=== PATIENT | female | born 1940 | race Caucasian/White ===

== ENCOUNTER → 2016-07-09 | Outpatient (CLI) | payer OTHER, MEDICARE | END | disposition home or self-care (01) | LOC: C.MAMM 10:21 | PROVIDERS: ATTEND Family Medicine | DX: M85.80 Other specified disorders of bone density and structure, unspecified site (principal); Z82.62 Family history of osteoporosis; E83.51 Hypocalcemia ==

== ENCOUNTER → 2016-07-15 | Outpatient (CLI) | payer OTHER, MEDICARE ==
--- NOTE | 2016-07-17 14:26 | MAMMOGRAPHY REPORT ---
BILATERAL DIGITAL SCREENING MAMMOGRAM WITH CAD: 07/15/2016 CLINICAL HISTORY: Routine screening. Patient has no complaints. TECHNIQUE: Bilateral CC and MLO views were obtained. Current study was also evaluated with a Compu ter Aided Detection (CAD) system. COMPARISON: Comparison is made to exams dated: 07/10/2015 mammogram, 04/23/2013 mammogram, 07/07/2014 mammogram - [facility], 05/04/2012 ultrasound, 05/02/2011 mammogram, and 04/02/2010 m ammogram. BREAST COMPOSITION: The tissue of both breasts is heterogeneously dense, which may obscure small ma sses. FINDINGS: There is a 7.4 mm nodular asymmetry in the superior posterior left breast, only seen on t he MLO view, for which additional spot compression tomosynthesis views and possibly ultrasound are r ecommended. There are scattered benign rim calcifications bilaterally. No other suspicious mass, architectural d istortion or cluster of microcalcifications is seen. IMPRESSION: ACR BI-RADS CATEGORY 0: INCOMPLETE EVALUATION: NEED ADDITIONAL IMAGING EVALUATION The 7.4 mm nodular asymmetry in the superior left breast needs additional evaluation. The patient will be called to schedule an appointment. Approximately 10% of breast cancers are not detected with mammography. A negative mammographic repor t should not delay biopsy if a clinically suggestive mass is present. Angelica Chamberlain M.D. ay/:07/16/2016 16:13:38 Internet Retailer: Aashish WEBB(Sourav)(Chris), [facility] letter sent: Addl Imaging 0 BI-RADS Code: ACR BI-RADS Category 0: Incomplete Evaluation: Need Additional Imaging Evaluation
== END | disposition home or self-care (01) ==
LOC: C.MAMM 09:07
PROVIDERS: ATTEND Family Medicine
DX: Z12.31 Encounter for screening mammogram for malignant neoplasm of breast (principal); R92.8 Other abnormal and inconclusive findings on diagnostic imaging of breast

== ENCOUNTER → 2016-07-29 | Outpatient (CLI) | payer OTHER, MEDICARE ==
--- NOTE | 2016-07-29 14:37 | MAMMOGRAPHY REPORT ---
UNILATERAL LEFT DIGITAL DIAGNOSTIC MAMMOGRAM TOMOSYNTHESIS AND TARGETED LEFT ULTRASOUND: 07/29/2016 CLINICAL HISTORY: 76-year-old woman called back from screening mammography for a 7.4 mm nodular asym metry in the superior, middle to posterior left breast, only seen on the MLO view. Family history o f breast cancer = mother. TECHNIQUE: Spot compression left CC and MLO to the digital and tomosynthesis images were obtained. COMPARISON: Comparison is made to exams dated: 07/15/2016 mammogram, 07/07/2014 mammogram, 04/30/2013 [facility], 05/02/2011 mammogram, 04/02/2010 mammogram, and 03/27/2008 [facility] mogram. BREAST COMPOSITION: The tissue of the left breast is heterogeneously dense, which may obscure small masses. FINDINGS: On the spot compression MLO view of the left breast including tomosynthesis images, the 7 mm nodular asymmetry in the superior posterior breast is less conspicuous. There are scattered dewayne gn-appearing calcifications and round microcalcifications. No focal areas of architectural distorti on. No corresponding abnormality is seen on the spot compression CC views including tomosynthesis i mages. Targeted ultrasound was performed throughout the superior left breast. In the 10:00 axis, 2 cm from the nipple, there is an ill-defined taller than wide hypoechoic solid versus cystic mass with indis tinct borders. It measures approximately 3.1 x 3.3 x 2.3 mm. Although this could represent a compl icated cyst or duct ectasia, a solid mass cannot be completely excluded. Definitive characterizatio n with tissue sampling is recommended. This is not thought to correlate with the original asymmetry seen on screening mammography dated 07/15/2016. Overall, no other discrete solid or cystic mass is identified. IMPRESSION: ACR BI-RADS CATEGORY 4B: INTERMEDIATE SUSPICION FOR MALIGNANCY, TARGETED ULTRASOUND ACR BI-RADS CATEGORY 4B: INTERMEDIATE SUSPICION FOR MALIGNANCY 1. Ultrasound guided core biopsy is recommended for an incidentally seen indistinct hypoechoic 3 mm mass in the 10:00 left breast, 2 cm from the nipple. 2. Correlation with post procedure mammograms is recommended, but the sonographic mass in the 10:00 breast is not thought to correlate with the 7 mm asymmetry seen on the original screening mammogram . Therefore, pending pathology results, would recommend follow-up diagnostic mammography in 6 month s to ensure stability, as asymmetry most likely represented normal overlapping tissue. These results and recommendations were discussed with the patient at the time of the exam. She tent atively scheduled the left breast biopsy prior to leaving our department. Approximately 10% of breast cancers are not detected with mammography. A negative mammographic repor t should not delay biopsy if a clinically suggestive mass is present. Angelica Chamberlain M.D. ay/:07/29/2016 12:36:34 Scruff Worker: Aashish Milligan RT(R)(M), [facility] letter sent: Abnormal 4/5 BI-RADS Code: ACR BI-RADS Category 4B: Intermediate Suspicion For Malignancy Ultrasound BI-RADS: AC R BI-RADS Category 4B: Intermediate Suspicion For Malignancy
== END | disposition home or self-care (01) ==
LOC: C.MAMM 09:26
PROVIDERS: ATTEND Family Medicine
DX: R92.8 Other abnormal and inconclusive findings on diagnostic imaging of breast (principal); N63 Unspecified lump in breast

== ENCOUNTER → 2016-08-26 | Outpatient (CLI) | payer OTHER, MEDICARE ==
--- NOTE | 2016-08-26 12:01 | Discharge Instructions ---
Discharge Instructions Procedure Procedure Date: Aug 26, 2016. Reason for visit: Left Mass. Discharge Discharge Date: Aug 26, 2016. Discharge Diagnosis: post left breast ultrasound guided core biopsy Instructions Activity Recommendations: Additional Limitations (see below) Return to School/Work: no limitations Recommended Home Diet: No Limitations Provider Instructions: ACTIVITY RECOMMENDATIONS: * No lifting, pushing, pulling or exercising the affected side for three days. RETURN TO SCHOOL/WORK: * You may return to work/school after the procedure, but do not perform any strenuous activities for 24 to 48 hours. MEDICATIONS: * Tylenol (two 325 mg) every four to six hours if needed for mild pain (if not allergic to Tylenol). DIET: * Resume previous diet. SPECIAL CARE INSTRUCTIONS: * Keep biopsy site dry for 24 hours. May shower after 24 hours, but do not soak (bathe) incision. * May remove Tegaderm (plastic patch) tomorrow AFTER showering. * Leave the steri-strips on for one week. Allow the steri-strips to fall off by themselves. If not off after one week, you may remove them. You may place a Bandaid crosswise over the strips, if desired. * Apply ice 10 minutes on and 10 minutes off as needed. * Wear a bra at bedtime to sleep more comfortably for 2-3 days. * Your referring physician should have the results after approximately 5 to 7 business days. * Call for unusual bleeding, fever, drainage, etc or if you have any questions call [phone] during normal business hours or after hours call Dr Chamberlain, . FOLLOW UP VISIT: Follow-up with Referring Physician as scheduled. Kristina Gallegos Recommendations: Call your doctor if: * Temperature above 101 degrees * Pain not relieved by pain medicine ordered * There is increased drainage or redness from any incision * You have any unanswered questions or concerns. Your Doctors Instructions noted above were prepared by provider Angelica Chamberlain. Patient Signature Section: Patient Instructions Signature Page Ирина Piña Patient (or Guardian) Signature/Date: I have read and understand the instructions given to me by my caregivers. Caregiver/RN/Doctor Signature/Date: The above-named patient and/or guardian has received patient instructions on this date. + Original Patient Signature Page (only) stays with chart. Please make copy for patient.
--- NOTE | 2016-08-26 14:38 | MAMMOGRAPHY REPORT ---
UNILATERAL LEFT DIGITAL DIAGNOSTIC MAMMOGRAM: 08/26/2016 CLINICAL HISTORY: Indeterminate solid versus cystic hypoechoic 3 mm mass in the 10:00 left breast. Patient presented for ultrasound-guided core needle biopsy. Please refer to the report from left breast ultrasound guided core biopsy performed at the same time for full detail. IMPRESSION: POST PROCEDURE IMAGING FOR MARKER PLACEMENT Please refer to the report from left breast ultrasound guided core biopsy performed at the same time for full detail. Approximately 10% of breast cancers are not detected with mammography. A negative mammographic repor t should not delay biopsy if a clinically suggestive mass is present. Angelica Chamberlain M.D. ay/:08/26/2016 12:07:43 Field Sales Engineer: Keri WEBB(R)(M), [facility] BI-RADS Code: Post Procedure Imaging For Marker Placement
--- NOTE | 2016-08-26 14:38 | MAMMOGRAPHY REPORT ---
ULTRASOUND GUIDED BIOPSY LEFT BREAST: 08/26/2016 CLINICAL HISTORY: Indeterminate solid versus cystic 3 mm mass in the 10:00 left breast. Patient pre sents for ultrasound-guided core biopsy. COMPARISON: Comparison is made to exams dated: 07/29/2016 ultrasound, 07/29/2016 mammogram, 07/15/2016 mammogram, 07/10/2015 mammogram, 07/07/2014 mammogram, and 04/30/2013 ultrasound - [facility]. PATIENT CONSENT: The procedure, risks and benefits were discussed with the patient and informed writ ten consent was obtained. Specific risks to this procedure include: bleeding, infection, puncture of adjacent structure, metal allergy, nontargeted biopsy, sampling error and medication reaction. PROCEDURE DESCRIPTION: A time out was performed and the left breast was agreed as the site of biopsy . The skin was prepped and draped in the usual sterile fashion. The patellar than wide, hypoechoic s olid versus cystic mass in the 10:00 left breast was chosen as the target for biopsy. Subcutaneous a nd intraparenchymal 1% buffered lidocaine was administered as local anesthesia. A skin incision was made. Through the incision, 4 samples were taken with a 14 gauge Achieve biopsy device. A metallic marker was placed at the biopsy site. Hemostasis was achieved after manual compression. The patient tolerated the procedure well and there was no immediate complication. The samples were sent to the pathology department in an appropriately labeled container. Postprocedure left CC and ML views were obtained. There is a new ribbon-shaped metallic biopsy olga lidia er and no significant hematoma in the 10:00 middle one third of the left breast, at the site of the biopsied hypoechoic mass seen on ultrasound. Based on the MLO view, the metallic biopsy marker does not definitely align with the original asymmetry seen on the 07/15/2016 screening mammogram and the refore pending benign pathology results, a short interval follow-up diagnostic left mammogram and po ssible repeat ultrasound is recommended to ensure stability in 6 months. IMPRESSION: ULTRASOUND GUIDED BIOPSY Status post ultrasound guided core biopsy of an indeterminate 3 mm hypoechoic mass in the 10:00 left breast, with biopsy marker placed at the site. Pending benign pathology results, a short interval follow-up diagnostic left mammogram is recommende d in 6 months to ensure stability of a partially effacing asymmetry more superior and posterior with in the left breast. Angelica Chamberlain M.D. ay/:08/26/2016 12:12:08 Spanish Lecturer: Keri ABARCA)(Chris), [facility]
== END | disposition home or self-care (01) ==
LOC: C.MAMM 10:58
PROVIDERS: ATTEND Family Medicine
DX: N63 Unspecified lump in breast (principal)

== ENCOUNTER → 2017-04-10 | Outpatient (CLI) | payer OTHER, MEDICARE | END | disposition home or self-care (01) | LOC: C.LAB1850 15:57 | PROVIDERS: ATTEND Internal Medicine Pulmonary Disease | DX: J32.9 Chronic sinusitis, unspecified (principal) ==

== ENCOUNTER → 2017-08-05 | Outpatient (CLI) | payer OTHER, MEDICARE ==
--- NOTE | 2017-08-06 14:03 | MAMMOGRAPHY REPORT ---
BILATERAL DIGITAL SCREENING MAMMOGRAM TOMOSYNTHESIS WITH CAD: 08/05/2017 CLINICAL HISTORY: Routine screening. Patient has no complaints. TECHNIQUE: Breast tomosynthesis in addition to standard 2D mammography was performed. Current study was also evaluated with a Computer Aided Detection (CAD) system. COMPARISON: Comparison is made to exams dated: 08/26/2016 mammogram, 08/26/2016 ultrasound biopsy, 07/02 ultrasound, 07/29/2016 mammogram, 07/15/2016 mammogram, and 07/10/2015 mammogram - [facility]. BREAST COMPOSITION: The tissue of both breasts is heterogeneously dense, which may obscure small mas ses. FINDINGS: There is a stable ribbon-shaped biopsy marker clip in the 9:00 middle one third of the left breast. A previously observed nodular asymmetry in the superior middle to posterior left breast on the MLO view is no longer seen, confirming benignity. There are scattered benign rim calcifications and a stable grouping of coarse heterogeneous calcifications in the right upper outer quadrant. No n ew suspicious mass, architectural distortion or cluster of microcalcifications is seen. IMPRESSION: ACR BI-RADS CATEGORY 1: NEGATIVE There is no mammographic evidence of malignancy. A 1 year screening mammogram is recommended. The pa tient will receive written notification of the results. Approximately 10% of breast cancers are not detected with mammography. A negative mammographic report should not delay biopsy if a clinically suggestive mass is present. Angelica Chamberlain M.D. ay/:08/05/2017 18:22:11 Registrar Nurses' Registry: Miranda WEBBR, M, [facility] letter sent: Normal 1/2 BI-RADS Code: ACR BI-RADS Category 1: Negative
== END | disposition home or self-care (01) ==
LOC: C.MAMM 14:01
PROVIDERS: ATTEND Family Medicine
DX: Z12.31 Encounter for screening mammogram for malignant neoplasm of breast (principal)

== ENCOUNTER 2021-08-22 17:25 | Inpatient (IN) ==
--- NOTE | 2021-08-22 18:47 | Emergency Department Note ---
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 Patient states predominately today she is now too weak to stand up on her own and has been sleeping more frequently this afternoon. Daughter present at bedside states the last several days the patient has seemed generally more weak and fatigued now that she thinks about it. Patient has been a bit more tremulous. She had a gentle fall to the ground tumbling forward 2 days ago but denies any significant injury from this. Patient reports a little bit of leg swelling but denies any significant pain at this time or headache. Patient states she has a bit of chronic cough but denies any nausea or diarrhea or urinary symptoms. No fevers reported. Patient states if anything she has been eating too much. Did recently receive an injection of Keytruda. Noted upon arrival to be hypoxic in the patient states she has no known history of needing oxygen in the past. Daughter discussed with oncology recommend she come here for further evaluation. Known history of metastasis of lung cancer to the brain and has been on steroids tapering down to 8 mg daily at this time. Patient denies new numbness or speech changes at this time. She states her arms feel fairly unchanged at this point and not significantly more weak. REVIEW OF SYSTEMS: A total of 10 review of systems was obtained and negative except as stated above in the HPI. PAST MEDICAL HISTORY: As noted above MEDICATIONS: Reviewed home medications, currently tapering steroid, no longer on anticoagulation SOCIAL HISTORY: Lives at home with daughters for assistance PHYSICAL EXAM: GENERAL: alert and oriented in no acute distress on stretcher Head: normocephalic and atraumatic EYES: No injection, discharge or icterus. PERRL NECK: Trachea midline. Supple. ENT: Mucous membranes pink and moist. LUNGS: Airway patent. No retractions. Breath sounds clear HEART: Regular rate and rhythm. No chest wall tenderness ABDOMEN: Soft and non-tender, without guarding or rebound. SKIN: Acyanotic, warm, dry, without rashes EXTREMITIES: 1+ bilateral lower extremity edema without significant tenderness. No significant tenderness or deformity noted of the upper extremities. NEUROLOGICAL: No focal deficits. No aphasia. No facial droop or slurred speech. Normal strength and tone in the extremities. Sensation to gross touch normal. EK bpm sinus rhythm with Supraventricular premature complexes no ST segment elevation noted. Nonspecific lateral T wave changes. QTc 399. CONTINUOUS CARDIAC MONITORING: was ordered and showed a heart rate of 90s-100s bpm in normal sinus rhythm to sinus tachycardia GCS 15. Patient's laboratory studies and imaging reviewed. Differential includes Infection, dehydration, metabolic abnormality, hypo/hyperglycemia, electrolyte disturbance, anemia, hypoxia, cardiac sources, intracerebral event, toxicologic, neurologic, as well as other pathologies. IMPRESSION/MEDICAL DECISION MAKING: Patient with mild fall 2 days ago but no reported significant head injury not anticoagulation. Primary complaint is been increasing weakness last several days particular today now unable to stand on her own. Is able to transfer with assistance however. No significant focal speech changes or numbness reported. Patient with known significant lung cancer. Incidental note of hypoxia today unsure if this may be contributing. Some shakiness today but not true fever or chills. Denies significant pain at this time. Broad differential was entertained. CT the head as well as CT of the lungs to exclude PE or other pulmonary pathology will be completed. MRI of the brain to further evaluate her known lung metastases may be contributing will be completed. Patient is on steroids already for the lung metastasis. Blood work here without significant anemia or leukocytosis. Mild hyponatremia noted. Stable renal function. Slight ALT elevation at 61 (similar to recent previous) but no bilirubin or AST elevation. Negative Covid test. Troponin detectable but not abnormal. Procalcitonin 0.4. TSH 0.4. CT of the head without acute bleed noted. CT of the chest with left upper lobe segmental and subsegmental PEs noted. Small decrease in size of mass. Some pneumonitis findings noted. Discussed with Dr. Rojas of oncology and will start on Lovenox. Patient and daughter updated bedside. MRI of the brain still ordered for further evaluation but again lower suspicion for acute CVA. Patient given her hypoxia and findings with weakness will still require admission. Discussed with the hospitalist. DIAGNOSIS: Weakness, hypoxia, pulmonary embolisms DISPOSITION: Hospitalist will evaluate Patient was agreeable with this plan. Discussed return precautions and advised follow up. Critical Care I have personally spent 34 minutes of critical care time in the direct management of this patient. This includes bedside care, interpretation of diagnostic studies, and testing, discussion with consultants, patient, and family members, and other required patient management activities. These 34 minutes is in excess of all separately billable procedures. Past Med/Surg History Medical History Abnormal chest CT Asthma inhaler prn Cerebral edema Closed olecranon fracture Diverticulitis Ex-smoker Hypercalcemia LAD (lymphadenopathy), mediastinal Left foot pain Low back pain Lung mass Malignant neoplasm of upper lobe, right bronchus or lung Mass in chest RUL mass with lymphadenopathy concerning for metastatic disease per CT report 07/02/2021. PET scan 07/04/2021 completed, results pending. Osteoarthritis Osteopenia Pain of right lower extremity Paralysis acute onset 06/08/2021-right upper and lower extremity weakness, significant urinary incontinence and gait instability. Had started gabapentin at 3 daily tablets 06/07/2021 titrated to 9 daily tablets over 7-10 days. Per pt and daughter, suspected to be side effect from gabapentin by prescribing provider and medication tapered. Pt denies imaging. She reports persistent symptoms beyond gabapentin d/c with gait instability contributing to fall. Sacroiliac joint pain Scoliosis Seborrheic keratosis Secondary malignant neoplasm of brain Surgical History History of arthroscopy of right knee History of bilateral cataract extraction History of bilateral tubal ligation History of breast biopsy all cysts all benign History of dilatation and curettage History of repair of right rotator cuff History of tonsillectomy and adenoidectomy History of wisdom tooth extraction Hx of colonoscopy Surgical history of tubal ligation Family History Other No family history of adverse response to anesthesia Social History Smoking Status: Current every day smoker Number of Years Since Quit: 25; Second Hand Exposure: No; Hx Alcohol Use: No Hx Substance Use: No Preferred Language: Wolof Communication Ability: Effective Hearing Ability: Normal Escalator Attendant Required: No Beliefs That Will Affect Care: None Current Living Situation: Alone Current Living Situation Comment: daughter has been staying with patient to assist current occupational status: retired current occupation: Peds Nurse Feels Safe at Home: Yes during the past year weight has: remained stable Physical Activity Frequency: Does not Exercise Assistive Devices: Glasses and Walker Allergies Allergies Allergy/AdvReac Type Severity Reaction Status Date / Time Sulfa (Sulfonamide Allergy Intermediate severe Verified 08/22/21 20:52 Antibiotics) acid reflux lasted for 2 months gabapentin Allergy Unknown unknown if Verified 08/22/21 20:52 gabapentin caused symptoms, see PMHx paralysis banana AdvReac Intermediate causes Verified 08/22/21 20:52 burping Home Meds Home Medications Medication Instructions Recorded Confirmed lifitegrast 5 % eye drops in a 1 drp OPHTHALMIC (EYE) QAM 02/08/21 08/22/21 dropperette (Xiidra) nutritional supplement-fiber oral 1 ea PO DAILY PRN ml 02/08/21 08/22/21 liquid omega-3s 800 mg-dha 186.67 mg-epa 1 cap PO QAM cap 02/08/21 08/22/21 560 mg-fish-vit D3 8.33 mcg capsule (De3 Dry Eye [place] Benefits) Zinc 1 tsp PO 2XWK 07/03/21 08/22/21 acetaminophen 500 mg tablet 1,000 mg PO BID 07/03/21 08/22/21 albuterol sulfate 90 mcg/actuation 2 puff INHALATION Q6H PRN 07/03/21 08/22/21 aerosol inhaler naproxen sodium 220 mg tablet 220 mg PO BID PRN 07/03/21 08/22/21 (Aleve) nutritional supplement-fiber oral 1 ea PO QAM 07/03/21 08/22/21 liquid psyllium husk 0.4 gram capsule 0.4 g PO QAM 07/03/21 08/22/21 (Metamucil) cholecalciferol (vitamin D3) 10 10 mcg PO DAILY 07/20/21 08/22/21 mcg/mL (400 unit/mL) oral drops lorazepam 0.5 mg tablet (Ativan) 0.5 mg PO DAILY PRN 07/20/21 08/22/21 oxycodone 5 mg capsule 5 mg PO Q4H PRN 07/20/21 08/22/21 rivaroxaban 10 mg tablet (Xarelto) 10 mg PO DAILY 07/20/21 08/22/21 vitamin B complex (B 1 tab PO DAILY 07/20/21 08/22/21 Complex-Vitamin B12) Previous Rx's Medication Instructions Recorded pantoprazole 40 mg tablet,delayed 40 mg PO BID #60 tab 08/06/21 release (Protonix) dexamethasone 4 mg tablet 4 mg PO .COMPLEX #60 tab 08/08/21 Results & Data (ED) Vital Signs Vital Signs - 24 hr 08/22/21 17:32 08/22/21 17:40 08/22/21 20:00 Temperature 36.4 C L Temperature Source Temporal Artery Scan Pulse Rate 109 H Pulse Rhythm [Right Finger] Pulse Strength [Right Finger] Respiratory Rate 18 18 Respiratory Effort / Characteristics Non-Labored Non-Labored Spontaneous Respiratory Depth Normal Normal Respiratory Pattern Regular Blood Pressure 143/83 H Blood Pressure Mean 103 Pulse Oximetry 85 L 93 93 Oxygen Delivery Method Room Air Nasal Cannula Nasal Cannula Oxygen Flow Rate 3 3 Sepsis Recent Fever Within 48 Hours No Sepsis New/Unexplained Change in Mental Status No Sepsis Action Taken by Nursing No Action Required 08/22/21 22:00 Temperature Temperature Source Pulse Rate Pulse Rhythm [Right Finger] Regular Pulse Strength [Right Finger] Normal Respiratory Rate 19 Respiratory Effort / Characteristics Non-Labored Spontaneous Respiratory Depth Normal Respiratory Pattern Regular Blood Pressure Blood Pressure Mean Pulse Oximetry 93 Oxygen Delivery Method Nasal Cannula Oxygen Flow Rate 3 Sepsis Recent Fever Within 48 Hours Sepsis New/Unexplained Change in Mental Status Sepsis Action Taken by Nursing Laboratory Data Result diagrams: 08/22/21 18:50 08/22/21 18:50 Lab Results 08/22/21 08/22/21 08/22/21 Range/Units 18:50 18:50 18:50 WBC 9.21 (4.8-10.8) K/uL RBC 4.04 L (4.2-5.4) M/uL Hgb 13.0 (12.0-16.0) g/dL Hct 38.7 (37-47) % MCV 95.8 (80-100) fL MCH 32.2 (25-34) pg MCHC 33.6 (32-36) g/dL RDW Std Deviation 58.2 H (36.4-46.3) fL RDW Coeff of Aureliano 16.6 H (11.5-14.5) % Plt Count 126 L (130-400) K/uL MPV 10.0 (7.4-10.4) fL Immature Gran % (Auto) 1.6 % Neut % (Auto) 86.8 % Lymph % (Auto) 8.6 % [place] % (Auto) 2.5 % Eos % (Auto) 0.3 % Baso % (Auto) 0.2 % Neut # (Auto) 7.99 H (1.4-6.5) K/uL Lymph # (Auto) 0.79 L (1.2-3.4) K/uL [place] # (Auto) 0.23 (0.11-0.59) K/uL Eos # (Auto) 0.03 (0-0.5) K/uL Baso # (Auto) 0.02 (0-0.2) K/uL Immature Gran # (Auto) 0.15 H (0.00-0.02) K/uL PT (9.0-12.0) Seconds INR (0.9-1.1) Sodium 134 L (136-145) mmol/L Potassium 4.1 (3.5-5.1) mmol/L Chloride 101 (98-107) mmol/L Carbon Dioxide 24 (21-32) mmol/L Anion Gap 9 (3-11) BUN 15 (6-23) mg/dl Creatinine 0.43 L (0.6-1.2) mg/dl Est Cr Clr Drug Dosing Not Reportable Est GFR ( Amer) 109.0 ml/min Est GFR (Non-Af Amer) 94.1 ml/min BUN/Creatinine Ratio 34.9 H (10-20) Glucose 184 H (70-99(Fasting)) mg/dl Calcium 9.7 (8.5-10.1) mg/dl Magnesium 2.0 (1.7-2.4) mg/dl Total Bilirubin 0.6 (0.2-1.0) mg/dl AST 29 (13-39) U/L ALT 61 H (7-52) U/L Alkaline Phosphatase 78 (34-104) U/L Troponin I 0.04 (0-0.04) ng/ml Total Protein 5.7 L (6.0-8.3) gm/dl Albumin 3.2 L (3.4-5.0) gm/dl Globulin 2.5 (2.5-4.0) gm/dl Albumin/Globulin Ratio 1.3 (0.9-2) Procalcitonin (0-0.5) ng/ml TSH 0.409 (0.300-4.500) uIu/ml Urine Color Urine Appearance (Clear) Urine pH (4.5-7.5) Ur Specific [place] (1.000-1.030) Urine Protein (Negative) Urine Glucose (UA) (Negative) Urine Ketones (Negative) Urine Blood (Negative) Urine Nitrite (Negative) Urine Bilirubin (Negative) Urine Urobilinogen (Negative) Ur Leukocyte Esterase (Negative) SARS-CoV-2, RNA, NAAT (NEGATIVE) 08/22/21 08/22/21 08/22/21 Range/Units 18:50 18:50 18:50 WBC (4.8-10.8) K/uL RBC (4.2-5.4) M/uL Hgb (12.0-16.0) g/dL Hct (37-47) % MCV (80-100) fL MCH (25-34) pg MCHC (32-36) g/dL RDW Std Deviation (36.4-46.3) fL RDW Coeff of Aureliano (11.5-14.5) % Plt Count (130-400) K/uL MPV (7.4-10.4) fL Immature Gran % (Auto) % Neut % (Auto) % Lymph % (Auto) % [place] % (Auto) % Eos % (Auto) % Baso % (Auto) % Neut # (Auto) (1.4-6.5) K/uL Lymph # (Auto) (1.2-3.4) K/uL [place] # (Auto) (0.11-0.59) K/uL Eos # (Auto) (0-0.5) K/uL Baso # (Auto) (0-0.2) K/uL Immature Gran # (Auto) (0.00-0.02) K/uL PT 11.3 (9.0-12.0) Seconds INR 1.1 (0.9-1.1) Sodium (136-145) mmol/L Potassium (3.5-5.1) mmol/L Chloride (98-107) mmol/L Carbon Dioxide (21-32) mmol/L Anion Gap (3-11) BUN (6-23) mg/dl Creatinine (0.6-1.2) mg/dl Est Cr Clr Drug Dosing Est GFR ( Amer) ml/min Est GFR (Non-Af Amer) ml/min BUN/Creatinine Ratio (10-20) Glucose (70-99(Fasting)) mg/dl Calcium (8.5-10.1) mg/dl Magnesium Cancelled (1.7-2.4) mg/dl Total Bilirubin (0.2-1.0) mg/dl AST (13-39) U/L ALT (7-52) U/L Alkaline Phosphatase (34-104) U/L Troponin I (0-0.04) ng/ml Total Protein (6.0-8.3) gm/dl Albumin (3.4-5.0) gm/dl Globulin (2.5-4.0) gm/dl Albumin/Globulin Ratio (0.9-2) Procalcitonin 0.41 (0-0.5) ng/ml TSH (0.300-4.500) uIu/ml Urine Color Urine Appearance (Clear) Urine pH (4.5-7.5) Ur Specific [place] (1.000-1.030) Urine Protein (Negative) Urine Glucose (UA) (Negative) Urine Ketones (Negative) Urine Blood (Negative) Urine Nitrite (Negative) Urine Bilirubin (Negative) Urine Urobilinogen (Negative) Ur Leukocyte Esterase (Negative) SARS-CoV-2, RNA, NAAT (NEGATIVE) 08/22/21 08/22/21 Range/Units 18:52 22:10 WBC (4.8-10.8) K/uL RBC (4.2-5.4) M/uL Hgb (12.0-16.0) g/dL Hct (37-47) % MCV (80-100) fL MCH (25-34) pg MCHC (32-36) g/dL RDW Std Deviation (36.4-46.3) fL RDW Coeff of Aureliano (11.5-14.5) % Plt Count (130-400) K/uL MPV (7.4-10.4) fL Immature Gran % (Auto) % Neut % (Auto) % Lymph % (Auto) % [place] % (Auto) % Eos % (Auto) % Baso % (Auto) % Neut # (Auto) (1.4-6.5) K/uL Lymph # (Auto) (1.2-3.4) K/uL [place] # (Auto) (0.11-0.59) K/uL Eos # (Auto) (0-0.5) K/uL Baso # (Auto) (0-0.2) K/uL Immature Gran # (Auto) (0.00-0.02) K/uL PT (9.0-12.0) Seconds INR (0.9-1.1) Sodium (136-145) mmol/L Potassium (3.5-5.1) mmol/L Chloride (98-107) mmol/L Carbon Dioxide (21-32) mmol/L Anion Gap (3-11) BUN (6-23) mg/dl Creatinine (0.6-1.2) mg/dl Est Cr Clr Drug Dosing Est GFR ( Amer) ml/min Est GFR (Non-Af Amer) ml/min BUN/Creatinine Ratio (10-20) Glucose (70-99(Fasting)) mg/dl Calcium (8.5-10.1) mg/dl Magnesium (1.7-2.4) mg/dl Total Bilirubin (0.2-1.0) mg/dl AST (13-39) U/L ALT (7-52) U/L Alkaline Phosphatase (34-104) U/L Troponin I (0-0.04) ng/ml Total Protein (6.0-8.3) gm/dl Albumin (3.4-5.0) gm/dl Globulin (2.5-4.0) gm/dl Albumin/Globulin Ratio (0.9-2) Procalcitonin (0-0.5) ng/ml TSH (0.300-4.500) uIu/ml Urine Color Yellow Urine Appearance Clear (Clear) Urine pH 7.0 (4.5-7.5) Ur Specific [place] 1.038 H (1.000-1.030) Urine Protein Negative (Negative) Urine Glucose (UA) 1+ H (Negative) Urine Ketones Negative (Negative) Urine Blood Negative (Negative) Urine Nitrite Negative (Negative) Urine Bilirubin Negative (Negative) Urine Urobilinogen Negative (Negative) Ur Leukocyte Esterase Negative (Negative) SARS-CoV-2, RNA, NAAT NEGATIVE (NEGATIVE) Administered Medications Enoxaparin Sodium (Enoxaparin Inj 60 Mg/0.6 Ml Syr) 60 mg SQ BID ROSALIO Stop: 09/21/21 21:29 Last Admin: 08/22/21 23:21 Dose: 60 mg Documented by: [id number] Discontinued Medications Gadobutrol (Gadobutrol 65ml Vial) 6 ml IV ONCE ONE Stop: 08/22/21 22:54 Last Admin: 08/22/21 22:55 Dose: 6 ml Documented by: [id number] Ioversol (Optiray 320 125ml) 120 ml IV ONCE ONE Stop: 08/22/21 20:06 Last Admin: 08/22/21 20:07 Dose: 120 ml Documented by: [id number] Imaging Data Radiologist's Impression: Chest CTA 08/22/21 18:40 CT angio chest PE protocol CT DOSE: 833.34 mGy.cm HISTORY: 81 years-old Female with PE, lung ca, weakness, hypoxia. Acute weakness with hypoxia. History of lung cancer TECHNIQUE: Multiple CTA images of the chest were obtained after the intravenous administration of 120 ml Optiray. Coronal and sagittal MIPS were obtained from the axial data set and were submitted for review. All measurements were obtained according to NASCET criteria. A dose lowering technique was utilized adhering to the principles of ALARA. COMPARISON: Chest CT 07/02/2021, PET CT 07/04/2021, MRI lumbar spine 06/18/2021 FINDINGS: CTA: The heart is normal in size. Epicardial effusion. Mild coronary artery james cifications. Atherosclerosis of the thoracic aorta without aneurysm or dissection. Unremarkable pulmonary artery. Segmental and subsegmental pulmonary emboli of the left upper lobe. No right heart strain. CT CHEST: No thyroid nodule. Pathologically enlarged lower right cervical chain, mediastinal and right hilar adenopathy redemonstrated. Conglomerate right paratracheal adenopathy on image 182 measures 2.3 x 2.2 cm, previously 2.4 x 2.4 cm. No new or progressive adenopathy. Several lymph nodes have mildly decreased in size. The patient's known right upper lobe neoplasm now measures 6.1 x 6.5 x 6.1 cm, previously measuring up to 8 cm in greatest dimension. Emphysema. Patchy multifocal bilateral groundglass and alveolar opacities. Central airways are p atent. Hepatic steatosis. No acute process of the imaged upper abdomen. Ill-defined hypodense 1.6 cm lesion of the left hepatic lobe is unchanged suggestive of a cyst. Unremarkable soft tissues. No acute fracture or suspicious bone lesion. Mild superior endplate compression deformity with 2 mm retropulsion at T11. This has progressed from the 07/02/2021 study, however is new from the May MRI. Additionally, there is progressed discogenic degeneration at T10-T11. IMPRESSION: 1. Small segmental and subsegmental pulmonary emboli of the left upper lobe. 2. Mildly decreased size of the right upper lobe malignant mass now measuring up to 6.5 cm compatible with positive treatment response. 3. Slightly decreased size of the metastatic thoracic lymphadenopathy. 4. Patchy multilobar bilateral groundglass and consolidative opacities are suggestive of an infectious or inflammatory pneumonitis such as viral pneumonia. 5. Progressively worsened mild to moderate acute on subacute T11 compression deformity with 2 mm retropulsion. This is new from the 06/18/2021 study. ACT 112: Negative or not required by law. The above report was generated using voice recognition software. It may contain grammatical, syntax or spelling errors. Electronically signed by: Hector Dailey M.D. 08/22/2021 8:[address] 08/22/21 18:40 CT head/brain wo con CLINICAL HISTORY: 81 years-old Female with weakness, known lung mets. Acute weakness with reported intracranial metastatic disease TECHNIQUE: Multiple axial CT images of the head were obtained without contrast. A dose lowering technique was utilized adhering to the principles of ALARA. COMPARISON: Brain MRI 07/09/2021 FINDINGS: No acute intracranial hemorrhage, midline shift, hydrocephalus, territorial i schemia or abnormal extra-axial collection. 1.9 x 1.0 cm right frontal lobe calcification is unchanged from comparison. [place]cent calcifications of the basal ganglia. Cerebral vascular calcifications. Age-related involutional changes. White matter hypodensities suggest chronic microvascular ischemic disease. Vasogenic edema of the left cerebral convexity redemonstrated. The previously described enhancing lesions seen on the prior brain MRI or not definitively seen. The calvarium is intact. Mild mucosal thickening of the ethmoid air cells. IMPRESSION: 1. No acute intracranial abnormality. 2. Vasogenic edema within the left cerebral convexity redemonstrated. The patient's known left cerebral hemisphere intracranial metastatic lesions described on the study from 07/09/2021 are not identified on this noncontrast study. 3. Right frontal lobe parenchymal calcification is unchanged. ACT 112: Negative or not required by law. The above report was generated using voice recognition software. It may contain grammatical, syntax or spelling errors. Electronically signed by: Hector Dailey M.D. 08/22/2021 8:20 PM Discharge Plan Visit Data Chief Complaint: Weakness Stated Complaint: DR OSPINA, STAGE 4 LUNG CANCER, WEAKNESS INCLINE ED Provider: Philip Lima Discharge Problem: Weakness, Secondary malignant neoplasm of brain, Malignant neoplasm of upper lobe, right bronchus or lung, Hypoxia, Pulmonary embolism on left Patient Disposition: Admitted As Inpatient Discharge Instructions Interventions: ED Discharge Assessment Last Done: 08/22/21 23:30
[2021-08-22 19:18] LABS: Basophils # (auto) 0.02 K/uL (0-0.2); Basophils % (auto) 0.2 %; Eosinophils # (auto) 0.03 K/uL (0-0.5); Eosinophils % (auto) 0.3 %; Hematocrit (blood only) 38.7 % (37-47); Immature Granulocytes # (auto) 0.15 K/uL (0.00-0.02); Immature Granulocytes % (auto) 1.6 %; Lymphocytes # (auto) 0.79 K/uL (1.2-3.4); Lymphocytes % (auto) 8.6 %; Mean Corpuscular Hemoglobin 32.2 pg (25-34); Mean Corpuscular Hgb Conc 33.6 g/dL (32-36); Mean Corpuscular Volume 95.8 fL (80-100); Monocytes # (auto) 0.23 K/uL (0.11-0.59); Monocytes % (auto) 2.5 %; Neutrophils # (auto) 7.99 K/uL (1.4-6.5); Neutrophils % (auto) 86.8 %; Platelet Count 126 K/uL (130-400); RDW Coefficient of Variation 16.6 % (11.5-14.5); RDW Standard Deviation 58.2 fL (36.4-46.3); Red Blood Count 4.04 M/uL (4.2-5.4); White Blood Count 9.21 K/uL (4.8-10.8)
[2021-08-22 19:25] LABS: INR 1.1 (0.9-1.1); Prothrombin Time 11.3 Seconds (9.0-12.0)
[2021-08-22 19:39] LABS: Troponin I 0.04 ng/ml (0-0.04)
[2021-08-22 19:40] LABS: Alanine Aminotransferase 61 U/L (7-52); Albumin Globulin Ratio 1.3 (0.9-2); Albumin Level 3.2 gm/dl (3.4-5.0); Alkaline Phosphatase 78 U/L (34-104); Anion Gap 9 (3-11); Aspartate Aminotransferase 29 U/L (13-39); BUN Creatinine Ratio 34.9 (10-20); Bilirubin,Total 0.6 mg/dl (0.2-1.0); Blood Urea Nitrogen 15 mg/dl (6-23); Calcium 9.7 mg/dl (8.5-10.1); Carbon Dioxide 24 mmol/L (21-32); Chloride 101 mmol/L (98-107); Est GFR (Non-African American) 94.1 ml/min; Globulin 2.5 gm/dl (2.5-4.0); Glucose 184 mg/dl (70-99(Fasting)); Potassium 4.1 mmol/L (3.5-5.1); Sodium 134 mmol/L (136-145); Total Protein 5.7 gm/dl (6.0-8.3)
[2021-08-22] MEDS ORDERED: OPTIRAY 320 125ml IV ONE (20:05)
--- NOTE | 2021-08-22 20:21 | CT Scan Report ---
CT head/brain wo con CLINICAL HISTORY: 81 years-old Female with weakness, known lung mets. Acute weakness with reported i ntracranial metastatic disease TECHNIQUE: Multiple axial CT images of the head were obtained without contrast. A dose lowering tech nique was utilized adhering to the principles of ALARA. COMPARISON: Brain MRI 07/09/2021 FINDINGS: No acute intracranial hemorrhage, midline shift, hydrocephalus, territorial ischemia or abnormal extr a-axial collection. 1.9 x 1.0 cm right frontal lobe calcification is unchanged from comparison. [place] cent calcifications of the basal ganglia. Cerebral vascular calcifications. Age-related involutional changes. White matter hypodensities suggest chronic microvascular ischemic disease. Vasogenic edema o f the left cerebral convexity redemonstrated. The previously described enhancing lesions seen on the prior brain MRI or not definitively seen. The calvarium is intact. Mild mucosal thickening of the ethmoid air cells. IMPRESSION: 1. No acute intracranial abnormality. 2. Vasogenic edema within the left cerebral convexity redemonstrated. The patient's known left cerebr al hemisphere intracranial metastatic lesions described on the study from 07/09/2021 are not identifie d on this noncontrast study. 3. Right frontal lobe parenchymal calcification is unchanged. ACT 112: Negative or not required by law. The above report was generated using voice recognition software. It may contain grammatical, syntax o r spelling errors. Electronically signed by: Hector Dailey M.D. 08/22/2021 8:20 PM
--- NOTE | 2021-08-22 20:41 | CT Scan Report ---
CT angio chest PE protocol CT DOSE: 833.34 mGy.cm HISTORY: 81 years-old Female with PE, lung ca, weakness, hypoxia. Acute weakness with hypoxia. Hist ory of lung cancer TECHNIQUE: Multiple CTA images of the chest were obtained after the intravenous administration of 120 ml Optiray. Coronal and sagittal MIPS were obtained from the axial data set and were submitted for review. All measurements were obtained according to NASCET criteria. A dose lowering technique was u tilized adhering to the principles of ALARA. COMPARISON: Chest CT 07/02/2021, PET CT 07/04/2021, MRI lumbar spine 06/18/2021 FINDINGS: CTA: The heart is normal in size. Epicardial effusion. Mild coronary artery calcifications. Atherosclerosi s of the thoracic aorta without aneurysm or dissection. Unremarkable pulmonary artery. Segmental and subsegmental pulmonary emboli of the left upper lobe. No right heart strain. CT CHEST: No thyroid nodule. Pathologically enlarged lower right cervical chain, mediastinal and right hilar ad enopathy redemonstrated. Conglomerate right paratracheal adenopathy on image 182 measures 2.3 x 2.2 c m, previously 2.4 x 2.4 cm. No new or progressive adenopathy. Several lymph nodes have mildly decreas ed in size. The patient's known right upper lobe neoplasm now measures 6.1 x 6.5 x 6.1 cm, previously measuring up to 8 cm in greatest dimension. Emphysema. Patchy multifocal bilateral groundglass and a lveolar opacities. Central airways are patent. Hepatic steatosis. No acute process of the imaged upper abdomen. Ill-defined hypodense 1.6 cm lesion of the left hepatic lobe is unchanged suggestive of a cyst. Unremarkable soft tissues. No acute fract ure or suspicious bone lesion. Mild superior endplate compression deformity with 2 mm retropulsion at T11. This has progressed from the 07/02/2021 study, however is new from the May MRI. Additionally , there is progressed discogenic degeneration at T10-T11. IMPRESSION: 1. Small segmental and subsegmental pulmonary emboli of the left upper lobe. 2. Mildly decreased size of the right upper lobe malignant mass now measuring up to 6.5 cm compatible with positive treatment response. 3. Slightly decreased size of the metastatic thoracic lymphadenopathy. 4. Patchy multilobar bilateral groundglass and consolidative opacities are suggestive of an infectiou s or inflammatory pneumonitis such as viral pneumonia. 5. Progressively worsened mild to moderate acute on subacute T11 compression deformity with 2 mm retr opulsion. This is new from the 06/18/2021 study. ACT 112: Negative or not required by law. The above report was generated using voice recognition software. It may contain grammatical, syntax o r spelling errors. Electronically signed by: Hector Dailey M.D. 08/22/2021 8:39 PM
[2021-08-22] MEDS ORDERED: ENOXAPARIN 1 MG/KG SQ SCH (21:00)
--- NOTE | 2021-08-22 22:12 | History & Physical Report ---
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 Patient has completed SBRT of the brain and was recently started on Keytruda, receiving her first infusion on 08/20/21. Patient presenting with weakness and fatigue, described below. Found to be hypoxic and tachycardic on arrival. CTA with MATEUSZ PE. Patient is HD stable, adequate saturation on 3L O2 by NC. No chest pain. PE in known malignancy -Anticoagulation with Lovenox 60mg BID -Supplemental O2 as needed (2) Weakness: Plan: Patient with complaint of generalized weakness as well as muscle pain and fatigue. Possibly secondary to recent Keytruda infusion. Electrolytes are largely normal. TSH is normal at 0.409. -Check CK -Gentle IVF -PT/OT evaluation -Tylenol as needed for discomfort (3) Malignant neoplasm of upper lobe, right bronchus or lung: Plan: Patient with primary lung adenocarcinoma with metastatic disease to brain. S/p SBRT on Keytruda. -Continue Dexamethasone -Continue Tylenol and Oxycodone as needed History of Present Illness Chief Complaint: weakness Primary Care Provider: Miracle Payton DO Ирина Piña is a pleasant 81yo female with metastatic adenocarcinoma of the lung presenting with SOB, generalized weakness and difficulty ambulating. Patient presented to the ER on 07/05/21 following an injury to the right shoulder following a fall at home. Imaging revealed an incidental 2.9cm lesion in the right lung apex. She had a positive PET CT. MRI of the brain with metastatic disease. Ultrasound guided FNA of right supraclavicular lymph node revealed metastatic adenocarcinoma, lung primary. She completed SBRT 3000cGy of her brain lesions on 08/15/21. She received her first Keytruda infusion on 08/20/21. She follows with Dr. Ibarra. Patient resides at home. Her daughter has been staying with her since the diagnosis. Patient has had 2 days of fatigue - sleeping much more than usual, slept most of the day today. Also with worsening generalized weakness and bilateral LE weakness. Patient has been unable to stand on her own and has been requiring assistance with transfers. She has had some muscle pain in her buttock and quadriceps as well as increased weakness in her quadriceps. She called her PCP with these complaints and was instructed to come to the ER. Patient thinks she may have been experiencing some shortness of breath today as well. She denies cough, chest pain, palpitations, dizziness or syncope. She has had bilateral LE swelling as well as some abdominal distention. She is eating well and having regular BMs. No additional complaints at this time. Patient in sinus tachycardia with HR of 109, hypoxic on arrival to 85% on room air. She had a CTA Chest performed which revealed segmental and subsegmental PEs in MATEUSZ. ER Course: Lovenox 60mg ordered Allergies Allergy/AdvReac Type Severity Reaction Status Date / Time Sulfa (Sulfonamide Allergy Intermediate severe Verified 08/22/21 20:52 Antibiotics) acid reflux lasted for 2 months gabapentin Allergy Unknown unknown if Verified 08/22/21 20:52 gabapentin caused symptoms, see PMHx paralysis banana AdvReac Intermediate causes Verified 08/22/21 20:52 burping Home Medications Medication Instructions Recorded Confirmed Type lifitegrast 5 % eye drops in a 1 drp OPHTHALMIC (EYE) QAM 02/08/21 08/22/21 History dropperette (Xiidra) nutritional supplement-fiber oral 1 ea PO DAILY PRN ml 02/08/21 08/22/21 History liquid omega-3s 800 mg-dha 186.67 mg-epa 1 cap PO QAM cap 02/08/21 08/22/21 History 560 mg-fish-vit D3 8.33 mcg capsule (De3 Dry Eye Baxter Benefits) Zinc 1 tsp PO 2XWK 07/03/21 08/22/21 History acetaminophen 500 mg tablet 1,000 mg PO BID 07/03/21 08/22/21 History albuterol sulfate 90 mcg/actuation 2 puff INHALATION Q6H PRN 07/03/21 08/22/21 History aerosol inhaler naproxen sodium 220 mg tablet 220 mg PO BID PRN 07/03/21 08/22/21 History (Aleve) nutritional supplement-fiber oral 1 ea PO QAM 07/03/21 08/22/21 History liquid psyllium husk 0.4 gram capsule 0.4 g PO QAM 07/03/21 08/22/21 History (Metamucil) cholecalciferol (vitamin D3) 10 10 mcg PO DAILY 07/20/21 08/22/21 History mcg/mL (400 unit/mL) oral drops lorazepam 0.5 mg tablet (Ativan) 0.5 mg PO DAILY PRN 07/20/21 08/22/21 History oxycodone 5 mg capsule 5 mg PO Q4H PRN 07/20/21 08/22/21 History rivaroxaban 10 mg tablet (Xarelto) 10 mg PO DAILY 07/20/21 08/22/21 History vitamin B complex (B 1 tab PO DAILY 07/20/21 08/22/21 History Complex-Vitamin B12) pantoprazole 40 mg tablet,delayed 40 mg PO BID #60 tab 08/06/21 08/22/21 Rx release (Protonix) dexamethasone 4 mg tablet 4 mg PO .COMPLEX #60 tab 08/08/21 08/22/21 Rx Past Med/Surg History Medical History Abnormal chest CT Asthma inhaler prn Cerebral edema Closed olecranon fracture Diverticulitis Ex-smoker Hypercalcemia LAD (lymphadenopathy), mediastinal Left foot pain Low back pain Lung mass Malignant neoplasm of upper lobe, right bronchus or lung Mass in chest RUL mass with lymphadenopathy concerning for metastatic disease per CT report 07/02/2021. PET scan 07/04/2021 completed, results pending. Osteoarthritis Osteopenia Pain of right lower extremity Paralysis acute onset 06/08/2021-right upper and lower extremity weakness, significant urinary incontinence and gait instability. Had started gabapentin at 3 daily tablets 06/07/2021 titrated to 9 daily tablets over 7-10 days. Per pt and daughter, suspected to be side effect from gabapentin by prescribing provider and medication tapered. Pt denies imaging. She reports persistent symptoms beyond gabapentin d/c with gait instability contributing to fall. Sacroiliac joint pain Scoliosis Seborrheic keratosis Secondary malignant neoplasm of brain Surgical History History of arthroscopy of right knee History of bilateral cataract extraction History of bilateral tubal ligation History of breast biopsy all cysts all benign History of dilatation and curettage History of repair of right rotator cuff History of tonsillectomy and adenoidectomy History of wisdom tooth extraction Hx of colonoscopy Surgical history of tubal ligation Family History Other No family history of adverse response to anesthesia Social History Smoking Status: Current every day smoker Number of Years Since Quit: 25; Second Hand Exposure: No; Hx Alcohol Use: No Hx Substance Use: No Preferred Language: [place] Citizen Communication Ability: Effective Hearing Ability: Normal Ict Help Desk Officer Required: No Beliefs That Will Affect Care: None Current Living Situation: Alone Current Living Situation Comment: daughter has been staying with patient to assist current occupational status: retired current occupation: Peds Nurse Feels Safe at Home: Yes during the past year weight has: remained stable Physical Activity Frequency: Does not Exercise Assistive Devices: Glasses and Walker Review of Systems Review of Systems: All systems reviewed & are unremarkable except as noted in HPI & below Physical Exam Physical Exam: General: patient resting comfortably, NAD, non-toxic in appearance, AA&O x 4 Skin: warm, dry, intact, no rashes or lesions, small bruise on right side of gluteal cleft HEENT: NC/AT, PERRL, EOMI, anicteric sclera, conjunctiva without injection, external ear normal to inspection and nontender, nares patent, moist mucus membranes, dentition intact, no oropharyngeal lesions, neck supple, trachea midline, no LAD, no thyromegaly, no JVD Heart: +S1/S2, regular, tachycardic, no m/r/g Lungs: equal air entry bilaterally, no rales/rhonchi/wheezes Abd: +BS, soft, nontender, mildly distended, tympanic to percussion, no masses/organomegaly/ascites Ext: warm, 2+ pulses in UE/LE bilaterally, no clubbing/cyanosis or edema Neuro: patient AA&O x 4, speech intact, no facial droop, diffuse weakness Muscle tenderness with palpation of right gluteus hieu Results & Data Results & Data ([facility]) Vital Signs (Past 12 Hours) Vital Signs Temp Pulse Resp BP Pulse Ox 08/22/21 22:00 19 93 08/22/21 20:00 18 93 08/22/21 17:40 93 08/22/21 17:32 36.4 C L 109 H 18 143/83 H 85 L Laboratory Results Laboratory Results WBC 9.21 K/uL (4.8-10.8) 08/22/21 18:50 RBC 4.04 M/uL (4.2-5.4) L 08/22/21 18:50 Hgb 13.0 g/dL (12.0-16.0) 08/22/21 18:50 Hct 38.7 % (37-47) 08/22/21 18:50 MCV 95.8 fL (80-100) 08/22/21 18:50 MCH 32.2 pg (25-34) 08/22/21 18:50 MCHC 33.6 g/dL (32-36) 08/22/21 18:50 RDW Std Deviation 58.2 fL (36.4-46.3) H 08/22/21 18:50 RDW Coeff of Aureliano 16.6 % (11.5-14.5) H 08/22/21 18:50 Plt Count 126 K/uL (130-400) L 08/22/21 18:50 MPV 10.0 fL (7.4-10.4) 08/22/21 18:50 Immature Gran % (Auto) 1.6 % 08/22/21 18:50 Neut % (Auto) 86.8 % 08/22/21 18:50 Lymph % (Auto) 8.6 % 08/22/21 18:50 [place] % (Auto) 2.5 % 08/22/21 18:50 Eos % (Auto) 0.3 % 08/22/21 18:50 Baso % (Auto) 0.2 % 08/22/21 18:50 Neut # (Auto) 7.99 K/uL (1.4-6.5) H 08/22/21 18:50 Lymph # (Auto) 0.79 K/uL (1.2-3.4) L 08/22/21 18:50 [place] # (Auto) 0.23 K/uL (0.11-0.59) 08/22/21 18:50 Eos # (Auto) 0.03 K/uL (0-0.5) 08/22/21 18:50 Baso # (Auto) 0.02 K/uL (0-0.2) 08/22/21 18:50 Immature Gran # (Auto) 0.15 K/uL (0.00-0.02) H 08/22/21 18:50 PT 11.3 Seconds (9.0-12.0) 08/22/21 18:50 INR 1.1 (0.9-1.1) 08/22/21 18:50 Sodium 134 mmol/L (136-145) L 08/22/21 18:50 Potassium 4.1 mmol/L (3.5-5.1) 08/22/21 18:50 Chloride 101 mmol/L (98-107) 08/22/21 18:50 Carbon Dioxide 24 mmol/L (21-32) 08/22/21 18:50 Anion Gap 9 (3-11) 08/22/21 18:50 BUN 15 mg/dl (6-23) 08/22/21 18:50 Creatinine 0.43 mg/dl (0.6-1.2) L 08/22/21 18:50 Est Cr Clr Drug Dosing Not Reportable 08/22/21 18:50 Est GFR ( Amer) 109.0 ml/min 08/22/21 18:50 Est GFR (Non-Af Amer) 94.1 ml/min 08/22/21 18:50 BUN/Creatinine Ratio 34.9 (10-20) H 08/22/21 18:50 Glucose 184 mg/dl (70-99(Fasting)) H 08/22/21 18:50 Calcium 9.7 mg/dl (8.5-10.1) 08/22/21 18:50 Magnesium 2.0 mg/dl (1.7-2.4) 08/22/21 18:50 Magnesium Cancelled 08/22/21 18:50 Total Bilirubin 0.6 mg/dl (0.2-1.0) 08/22/21 18:50 AST 29 U/L (13-39) 08/22/21 18:50 ALT 61 U/L (7-52) H 08/22/21 18:50 Alkaline Phosphatase 78 U/L (34-104) 08/22/21 18:50 Troponin I 0.04 ng/ml (0-0.04) 08/22/21 18:50 Total Protein 5.7 gm/dl (6.0-8.3) L 08/22/21 18:50 Albumin 3.2 gm/dl (3.4-5.0) L 08/22/21 18:50 Globulin 2.5 gm/dl (2.5-4.0) 08/22/21 18:50 Albumin/Globulin Ratio 1.3 (0.9-2) 08/22/21 18:50 Procalcitonin 0.41 ng/ml (0-0.5) 08/22/21 18:50 TSH 0.409 uIu/ml (0.300-4.500) 08/22/21 18:50 Urine Color Yellow 08/22/21 22:10 Urine Appearance Clear (Clear) 08/22/21 22:10 Urine pH 7.0 (4.5-7.5) 08/22/21 22:10 Ur Specific [place] 1.038 (1.000-1.030) H 08/22/21 22:10 Urine Protein Negative (Negative) 08/22/21 22:10 Urine Glucose (UA) 1+ (Negative) H 08/22/21 22:10 Urine Ketones Negative (Negative) 08/22/21 22:10 Urine Blood Negative (Negative) 08/22/21 22:10 Urine Nitrite Negative (Negative) 08/22/21 22:10 Urine Bilirubin Negative (Negative) 08/22/21 22:10 Urine Urobilinogen Negative (Negative) 08/22/21 22:10 Ur Leukocyte Esterase Negative (Negative) 08/22/21 22:10 SARS-CoV-2, RNA, NAAT NEGATIVE (NEGATIVE) 08/22/21 18:52 Impressions Chest CTA 08/22/21 18:40 CT angio chest PE protocol CT DOSE: 833.34 mGy.cm HISTORY: 81 years-old Female with PE, lung ca, weakness, hypoxia. Acute weakness with hypoxia. History of lung cancer TECHNIQUE: Multiple CTA images of the chest were obtained after the intravenous administration of 120 ml Optiray. Coronal and sagittal MIPS were obtained from the axial data set and were submitted for review. All measurements were obtained according to NASCET criteria. A dose lowering technique was utilized adhering to the principles of ALARA. COMPARISON: Chest CT 07/02/2021, PET CT 07/04/2021, MRI lumbar spine 06/18/2021 FINDINGS: CTA: The heart is normal in size. Epicardial effusion. Mild coronary artery calcifications. Atherosclerosis of the thoracic aorta without aneurysm or dissection. Unremarkable pulmonary artery. Segmental and subsegmental pulmonary emboli of the left upper lobe. No right heart strain. CT CHEST: No thyroid nodule. Pathologically enlarged lower right cervical chain, mediastinal and right hilar adenopathy redemonstrated. Conglomerate right paratracheal adenopathy on image 182 measures 2.3 x 2.2 cm, previously 2.4 x 2.4 cm. No new or progressive adenopathy. Several lymph nodes have mildly decreased in size. The patient's known right upper lobe neoplasm now measures 6.1 x 6.5 x 6.1 cm, previously measuring up to 8 cm in greatest dimension. Emphysema. Patchy multifocal bilateral groundglass and alveolar opacities. Central airways are patent. Hepatic steatosis. No acute process of the imaged upper abdomen. Ill-defined hypodense 1.6 cm lesion of the left hepatic lobe is unchanged suggestive of a cyst. Unremarkable soft tissues. No acute fracture or suspicious bone lesion. Mild superior endplate compression deformity with 2 mm retropulsion at T11. This has progressed from the 07/02/2021 study, however is new from the May MRI. Additionally, there is progressed discogenic degeneration at T10-T11. IMPRESSION: 1. Small segmental and subsegmental pulmonary emboli of the left upper lobe. 2. Mildly decreased size of the right upper lobe malignant mass now measuring up to 6.5 cm compatible with positive treatment response. 3. Slightly decreased size of the metastatic thoracic lymphadenopathy. 4. Patchy multilobar bilateral groundglass and consolidative opacities are suggestive of an infectious or inflammatory pneumonitis such as viral pneumonia. 5. Progressively worsened mild to moderate acute on subacute T11 compression deformity with 2 mm retropulsion. This is new from the 06/18/2021 study. ACT 112: Negative or not required by law. The above report was generated using voice recognition software. It may contain grammatical, syntax or spelling errors. Electronically signed by: Hector Dailey M.D. 08/22/2021 8:[address] 08/22/21 18:40 CT head/brain wo con CLINICAL HISTORY: 81 years-old Female with weakness, known lung mets. Acute weakness with reported intracranial metastatic disease TECHNIQUE: Multiple axial CT images of the head were obtained without contrast. A dose lowering technique was utilized adhering to the principles of ALARA. COMPARISON: Brain MRI 07/09/2021 FINDINGS: No acute intracranial hemorrhage, midline shift, hydrocephalus, territorial ischemia or abnormal extra-axial collection. 1.9 x 1.0 cm right frontal lobe calcification is unchanged from comparison. [place]cent calcifications of the basal ganglia. Cerebral vascular calcifications. Age-related involutional changes. White matter hypodensities suggest chronic microvascular ischemic disease. Vasogenic edema of the left cerebral convexity redemonstrated. The previously described enhancing lesions seen on the prior brain MRI or not definitively seen. The calvarium is intact. Mild mucosal thickening of the ethmoid air cells. IMPRESSION: 1. No acute intracranial abnormality. 2. Vasogenic edema within the left cerebral convexity redemonstrated. The patient's known left cerebral hemisphere intracranial metastatic lesions described on the study from 07/09/2021 are not identified on this noncontrast study. 3. Right frontal lobe parenchymal calcification is unchanged. ACT 112: Negative or not required by law. The above report was generated using voice recognition software. It may contain grammatical, syntax or spelling errors. Electronically signed by: Hector Dailey M.D. 08/22/2021 8:20 PM Code Status & VTE Plan VTE Prophylaxis Plan VTE Prophylaxis will be ordered: Yes PG Care Time/CCT Total # of Minutes Spent Total Time Spent with Patient: Total time spent is greater than 50% in coordination of care (as documented) at patient's floor/unit and/or counseling patient: Coding Level of Care Code 20750 Initial Inpt Care Lvl 2 Diagnoses Pulmonary emboli I26.99 Weakness R53.1 Malignant neoplasm of upper lobe, right bronchus or lung C34.11
[2021-08-22 22:21] LABS: Appearance Urine Clear (Clear); Bilirubin Urine Negative (Negative); Blood Urine Negative (Negative); Color Urine Yellow; Glucose Urine UA 1+ (Negative); Ketones Urine Negative (Negative); Leukocyte Esterase Urine Negative (Negative); Nitrite Urine Negative (Negative); Protein Urine Negative (Negative); Specific Gravity Urine 1.038 (1.000-1.030); Urobilinogen Urine Negative (Negative)
[2021-08-22] MEDS ORDERED: GADOBUTROL 65ML VIAL IV ONE (22:53)
[2021-08-22] MEDS ORDERED: ENOXAPARIN INJ 60 MG/0.6 ML SYR SQ ONE (23:17)
[2021-08-22] MEDS: ENOXAPARIN INJ 60 MG/0.6 ML SYR SQ SCH (23:21)
[2021-08-22] MEDS ORDERED: ONDANSETRON INJ 2 MG/ML 2 ML VIAL IV PRN (23:38)
[2021-08-22] MEDS ORDERED: LORazepam 0.5 MG TAB PO PRN (23:38)
[2021-08-23 00:06] LABS: Creatine Kinase 74 U/L (26-192); Phosphorus 2.8 mg/dl (2.5-4.9)
[2021-08-23] MEDS ORDERED: ENOXAPARIN INJ 60 MG/0.6 ML SYR SQ ONE (01:34)
[2021-08-23 06:29] LABS: Basophils # (auto) 0.01 K/uL (0-0.2); Basophils % (auto) 0.1 %; Eosinophils # (auto) 0.12 K/uL (0-0.5); Eosinophils % (auto) 1.6 %; Hematocrit (blood only) 36.8 % (37-47); Hemoglobin 12.6 g/dL (12.0-16.0); Immature Granulocytes # (auto) 0.15 K/uL (0.00-0.02); Lymphocytes # (auto) 0.86 K/uL (1.2-3.4); Lymphocytes % (auto) 11.3 %; Mean Corpuscular Hemoglobin 31.9 pg (25-34); Mean Corpuscular Hgb Conc 34.2 g/dL (32-36); Mean Corpuscular Volume 93.2 fL (80-100); Mean Platelet Volume 9.5 fL (7.4-10.4); Monocytes # (auto) 0.06 K/uL (0.11-0.59); Monocytes % (auto) 0.8 %; Neutrophils # (auto) 6.42 K/uL (1.4-6.5); Neutrophils % (auto) 84.2 %; Platelet Count 109 K/uL (130-400); RDW Coefficient of Variation 16.5 % (11.5-14.5); RDW Standard Deviation 56.3 fL (36.4-46.3); Red Blood Count 3.95 M/uL (4.2-5.4); White Blood Count 7.62 K/uL (4.8-10.8)
[2021-08-23] MEDS: ACETAMINOPHEN 325 MG TAB PO PRN (06:29)
[2021-08-23 06:56] LABS: BUN Creatinine Ratio 27.8 (10-20); Bilirubin Direct 0.1 mg/dl (0-0.2); Bilirubin,Total 0.9 mg/dl (0.2-1.0); Calcium 9.6 mg/dl (8.5-10.1); Creatinine Clr Calc Pharmacy 102.2 ml/min; Est GFR (African American) 115.6 ml/min; Est GFR (Non-African American) 99.7 ml/min; Potassium 3.8 mmol/L (3.5-5.1); Total Protein 5.6 gm/dl (6.0-8.3)
--- NOTE | 2021-08-23 08:00 | Magnetic Resonance Report ---
Brain MRI WITH AND WITHOUT CONTRAST HISTORY: weakness, known lung mets TECHNIQUE: Multiplanar multisequence MRI of the brain was performed both before and after the intrave nous administration of contrast. COMPARISON STUDY: Brain MRI 07/09/2021. FINDINGS: No areas restricted diffusion to suggest acute infarction. The midline structures are intac t. Right frontal lobe calcification is again noted. The ventricles and sulci demonstrate mild age-rel ated involutional changes. The major vascular flow-voids at the skull base are well-maintained. Evide nce for prior bilateral lens replacement. Paranasal sinuses and mastoid air cells are clear. Microvas cular ischemic changes are again noted. Interval decrease in size within the left high convexity and left occipital metastatic foci. The vasogenic edema surrounding these lesions has also improved. A do minant lesion within the left high convexity measures 14 mm, previously measuring 17 mm. The left occ ipital lobe lesion measures 6 mm. No new intracranial lesions identified. Small amount of susceptibil ity artifact within the larger lesion may be due to trace intracranial hemorrhage. This remains uncha nged. IMPRESSION: 1. Decrease in size and improvement in the surrounding edema involving the left intracranial metastat ic foci. No new metastatic lesions identified. 2. No acute hemorrhage. ACT 112: Negative or not required by law. Electronically signed by: Ted Kearns M.D. 08/23/2021 7:36 AM
--- NOTE | 2021-08-23 08:06 | Medical Student Progress Note ---
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 Pulmonary emboli - likely hypercoagulable secondary to malignancy - VSS, adequate saturation on 5L O2 by NC - Lovenox 60 mg BID Weakness - Head CT and brain MRI showed no acute pathology, some decrease in size of known metastases and no new metastases - PT/OT evaluation Malignant neoplasm of lung with metastatic disease to brain - S/p SBRT - started Keytruda on 08/20/21 - Continue Dexamethasone - Continue Tylenol and Oxycodone as needed Code status: Full code Dispo: med/surg with tele DVT Prophylaxis: Lovenox 60 MG BID FEN/GI: regular diet (2) Weakness: (3) Malignant neoplasm of upper lobe, right bronchus or lung: (4) Secondary malignant neoplasm of brain: Plan: I also saw the patient with the medical student resident physician and confirmed puckett portions of the history and physical examination. Agree with the impression and plan in their note as summarized below. Pleasant 81-year-old female presents to the emergency department with increased fatigue and difficulty with ambulation/transfers the last 2 days. She was noted to be tachypneic, tachycardic, and hypoxic and a subsequent CTA demonstrated left-sided pulmonary emboli. She does have a history of lung cancer which was found incidentally on a chest x-ray subsequent to a fall and shoulder injury. Recent brain MRI demonstrated metastatic disease. The patient is seen just before lunch late this morning. She feels better this a.m. She denies any shortness of breath. Exam 132/69, 112, 18, 37 C, 97% on nasal cannula 5 L/min She is pleasant. Alert. No distress appreciated. She can talk in full sentences without pause Heart is tachycardic, seems regular Lungs are essentially clear with nonlabored respirations Data Hemoglobin 12.6, hematocrit 36.8, platelet count 109 Sodium 133, potassium 3.8, BUN 10, creatinine 0.36 AST 29, ALT 59, alkaline phosphatase 77 Imaging A brain MRI dated 08/22/2021 compared to an MRI dated 07/09/2021 shows a decrease in size and improvement in surrounding edema involving the left intracranial metastatic foci. No new metastatic lesions were identified. A CT of the chest dated 08/22/2021 shows small segmental and subsegmental pulmonary emboli of the left upper lobe, mildly decreased size of the right upper lobe malignant mass now measuring 6.5 cm compatible with positive treatment response, slightly decreased size of the metastatic thoracic lymphadenopathy identified on CT scan of 07/02/2021. Also noted was a mild to moderate acute on subacute T11 compression deformity. This is new from the 06/18/2021 study. Impression and Plan Pulmonary embolism in the setting of metastatic adenocarcinoma of the lung Lovenox 1 mg/kg every 12 hours, could transition to 1.5 mg/kg every 24 hours upon discharge for ease of administration Given her malignancy, Lovenox is probably the most efficacious option; could consider switching to a DOAC after 6 to 8 weeks of Lovenox Supplemental oxygen Metastatic adenocarcinoma of the lung Reimaging of the brain and chest show a good treatment response Consult nurse navigator as requested by the family PT/OT consultation T11 compression deformity, subacute She has no pain in this area, although the dexamethasone may be providing some palliation She was previously treated with a bisphosphonate We will defer any additional treatments to her PCP Admission and Anticipated Discharge Date Admission Date: August 22, 2021 Subjective This AM, patient says she feels "much better than yesterday." Review of Systems Constitutional: per HPI Physical Exam Constitutional: WD/WN, vitals as above Eyes: PERRL, conjunctivae normal, anicteric sclerae ENMT: external ear and nose normal, oropharynx normal Neck: trachea midline, no thyromegaly Respiratory: normal respiratory effort, lungs clear to auscultation on 5 L NC Cardiovascular: Rate/Rhythm: regular rhythm and + tachycardic Heart Sounds: normal S1 and normal S2; no gallop, no murmur and no cardiac rub Gastrointestinal (Abdomen): normal bowel sounds, soft, nontender, no hepatosplenomegaly Results & Data ([facility]) Vital Signs (Past 12 Hours) Vital Signs Temp Pulse Pulse Resp BP Pulse Ox 08/23/21 07:50 36.8 C 88 16 129/71 93 08/23/21 06:20 37.6 C H 84 32 H 113/70 92 08/23/21 04:08 93 H 02/24/22 03:00 37 C 109 H 16 128/83 92 08/22/21 23:43 36.9 C 94 H 16 127/68 92 08/22/21 23:38 36.9 C 94 H 16 127/68 92 08/22/21 23:30 91 H 19 93 08/22/21 22:00 19 93 Laboratory Results 08/23/21 08/23/21 08/22/21 Range/Units 05:49 05:49 22:10 WBC 7.62 (4.8-10.8) K/uL RBC 3.95 L (4.2-5.4) M/uL Hgb 12.6 (12.0-16.0) g/dL Hct 36.8 L (37-47) % MCV 93.2 (80-100) fL MCH 31.9 (25-34) pg MCHC 34.2 (32-36) g/dL RDW Std Deviation 56.3 H (36.4-46.3) fL RDW Coeff of Aureliano 16.5 H (11.5-14.5) % Plt Count 109 L (130-400) K/uL MPV 9.5 (7.4-10.4) fL Immature Gran % (Auto) 2.0 % Neut % (Auto) 84.2 % Lymph % (Auto) 11.3 % [place] % (Auto) 0.8 % Eos % (Auto) 1.6 % Baso % (Auto) 0.1 % Neut # (Auto) 6.42 (1.4-6.5) K/uL Lymph # (Auto) 0.86 L (1.2-3.4) K/uL [place] # (Auto) 0.06 L (0.11-0.59) K/uL Eos # (Auto) 0.12 (0-0.5) K/uL Baso # (Auto) 0.01 (0-0.2) K/uL Immature Gran # (Auto) 0.15 H (0.00-0.02) K/uL PT (9.0-12.0) Seconds INR (0.9-1.1) Sodium 133 L (136-145) mmol/L Potassium 3.8 (3.5-5.1) mmol/L Chloride 99 (98-107) mmol/L Carbon Dioxide 25 (21-32) mmol/L Anion Gap 9 (3-11) BUN 10 (6-23) mg/dl Creatinine 0.36 L (0.6-1.2) mg/dl Est Cr Clr Drug Dosing 102.2 Est GFR ( Amer) 115.6 ml/min Est GFR (Non-Af Amer) 99.7 ml/min BUN/Creatinine Ratio 27.8 H (10-20) Glucose 100 H (70-99(Fasting)) mg/dl Calcium 9.6 (8.5-10.1) mg/dl Phosphorus (2.5-4.9) mg/dl Magnesium (1.7-2.4) mg/dl Total Bilirubin 0.9 (0.2-1.0) mg/dl Direct Bilirubin 0.1 (0-0.2) mg/dl AST 29 (13-39) U/L ALT 59 H (7-52) U/L Alkaline Phosphatase 77 (34-104) U/L Total Creatine Kinase (26-192) U/L Troponin I (0-0.04) ng/ml Total Protein 5.6 L (6.0-8.3) gm/dl Albumin 3.0 L (3.4-5.0) gm/dl Globulin (2.5-4.0) gm/dl Albumin/Globulin Ratio (0.9-2) Procalcitonin (0-0.5) ng/ml TSH (0.300-4.500) uIu/ml Urine Color Yellow Urine Appearance Clear (Clear) Urine pH 7.0 (4.5-7.5) Ur Specific [place] 1.038 H (1.000-1.030) Urine Protein Negative (Negative) Urine Glucose (UA) 1+ H (Negative) Urine Ketones Negative (Negative) Urine Blood Negative (Negative) Urine Nitrite Negative (Negative) Urine Bilirubin Negative (Negative) Urine Urobilinogen Negative (Negative) Ur Leukocyte Esterase Negative (Negative) SARS-CoV-2, RNA, NAAT (NEGATIVE) 08/22/21 08/22/21 08/22/21 Range/Units 18:52 18:50 18:50 WBC (4.8-10.8) K/uL RBC (4.2-5.4) M/uL Hgb (12.0-16.0) g/dL Hct (37-47) % MCV (80-100) fL MCH (25-34) pg MCHC (32-36) g/dL RDW Std Deviation (36.4-46.3) fL RDW Coeff of Aureliano (11.5-14.5) % Plt Count (130-400) K/uL MPV (7.4-10.4) fL Immature Gran % (Auto) % Neut % (Auto) % Lymph % (Auto) % [place] % (Auto) % Eos % (Auto) % Baso % (Auto) % Neut # (Auto) (1.4-6.5) K/uL Lymph # (Auto) (1.2-3.4) K/uL [place] # (Auto) (0.11-0.59) K/uL Eos # (Auto) (0-0.5) K/uL Baso # (Auto) (0-0.2) K/uL Immature Gran # (Auto) (0.00-0.02) K/uL PT 11.3 (9.0-12.0) Seconds INR 1.1 (0.9-1.1) Sodium (136-145) mmol/L Potassium (3.5-5.1) mmol/L Chloride (98-107) mmol/L Carbon Dioxide (21-32) mmol/L Anion Gap (3-11) BUN (6-23) mg/dl Creatinine (0.6-1.2) mg/dl Est Cr Clr Drug Dosing Est GFR ( Amer) ml/min Est GFR (Non-Af Amer) ml/min BUN/Creatinine Ratio (10-20) Glucose (70-99(Fasting)) mg/dl Calcium (8.5-10.1) mg/dl Phosphorus (2.5-4.9) mg/dl Magnesium Cancelled (1.7-2.4) mg/dl Total Bilirubin (0.2-1.0) mg/dl Direct Bilirubin (0-0.2) mg/dl AST (13-39) U/L ALT (7-52) U/L Alkaline Phosphatase (34-104) U/L Total Creatine Kinase (26-192) U/L Troponin I (0-0.04) ng/ml Total Protein (6.0-8.3) gm/dl Albumin (3.4-5.0) gm/dl Globulin (2.5-4.0) gm/dl Albumin/Globulin Ratio (0.9-2) Procalcitonin (0-0.5) ng/ml TSH (0.300-4.500) uIu/ml Urine Color Urine Appearance (Clear) Urine pH (4.5-7.5) Ur Specific [place] (1.000-1.030) Urine Protein (Negative) Urine Glucose (UA) (Negative) Urine Ketones (Negative) Urine Blood (Negative) Urine Nitrite (Negative) Urine Bilirubin (Negative) Urine Urobilinogen (Negative) Ur Leukocyte Esterase (Negative) SARS-CoV-2, RNA, NAAT NEGATIVE (NEGATIVE) 08/22/21 08/22/21 08/22/21 Range/Units 18:50 18:50 18:50 WBC (4.8-10.8) K/uL RBC (4.2-5.4) M/uL Hgb (12.0-16.0) g/dL Hct (37-47) % MCV (80-100) fL MCH (25-34) pg MCHC (32-36) g/dL RDW Std Deviation (36.4-46.3) fL RDW Coeff of Aureliano (11.5-14.5) % Plt Count (130-400) K/uL MPV (7.4-10.4) fL Immature Gran % (Auto) % Neut % (Auto) % Lymph % (Auto) % [place] % (Auto) % Eos % (Auto) % Baso % (Auto) % Neut # (Auto) (1.4-6.5) K/uL Lymph # (Auto) (1.2-3.4) K/uL [place] # (Auto) (0.11-0.59) K/uL Eos # (Auto) (0-0.5) K/uL Baso # (Auto) (0-0.2) K/uL Immature Gran # (Auto) (0.00-0.02) K/uL PT (9.0-12.0) Seconds INR (0.9-1.1) Sodium 134 L (136-145) mmol/L Potassium 4.1 (3.5-5.1) mmol/L Chloride 101 (98-107) mmol/L Carbon Dioxide 24 (21-32) mmol/L Anion Gap 9 (3-11) BUN 15 (6-23) mg/dl Creatinine 0.43 L (0.6-1.2) mg/dl Est Cr Clr Drug Dosing Not Reportable Est GFR ( Amer) 109.0 ml/min Est GFR (Non-Af Amer) 94.1 ml/min BUN/Creatinine Ratio 34.9 H (10-20) Glucose 184 H (70-99(Fasting)) mg/dl Calcium 9.7 (8.5-10.1) mg/dl Phosphorus 2.8 (2.5-4.9) mg/dl Magnesium 2.0 (1.7-2.4) mg/dl Total Bilirubin 0.6 (0.2-1.0) mg/dl Direct Bilirubin (0-0.2) mg/dl AST 29 (13-39) U/L ALT 61 H (7-52) U/L Alkaline Phosphatase 78 (34-104) U/L Total Creatine Kinase 74 (26-192) U/L Troponin I 0.04 (0-0.04) ng/ml Total Protein 5.7 L (6.0-8.3) gm/dl Albumin 3.2 L (3.4-5.0) gm/dl Globulin 2.5 (2.5-4.0) gm/dl Albumin/Globulin Ratio 1.3 (0.9-2) Procalcitonin 0.41 (0-0.5) ng/ml TSH 0.409 (0.300-4.500) uIu/ml Urine Color Urine Appearance (Clear) Urine pH (4.5-7.5) Ur Specific [place] (1.000-1.030) Urine Protein (Negative) Urine Glucose (UA) (Negative) Urine Ketones (Negative) Urine Blood (Negative) Urine Nitrite (Negative) Urine Bilirubin (Negative) Urine Urobilinogen (Negative) Ur Leukocyte Esterase (Negative) SARS-CoV-2, RNA, NAAT (NEGATIVE) 08/22/21 Range/Units 18:50 WBC 9.21 (4.8-10.8) K/uL RBC 4.04 L (4.2-5.4) M/uL Hgb 13.0 (12.0-16.0) g/dL Hct 38.7 (37-47) % MCV 95.8 (80-100) fL MCH 32.2 (25-34) pg MCHC 33.6 (32-36) g/dL RDW Std Deviation 58.2 H (36.4-46.3) fL RDW Coeff of Aureliano 16.6 H (11.5-14.5) % Plt Count 126 L (130-400) K/uL MPV 10.0 (7.4-10.4) fL Immature Gran % (Auto) 1.6 % Neut % (Auto) 86.8 % Lymph % (Auto) 8.6 % [place] % (Auto) 2.5 % Eos % (Auto) 0.3 % Baso % (Auto) 0.2 % Neut # (Auto) 7.99 H (1.4-6.5) K/uL Lymph # (Auto) 0.79 L (1.2-3.4) K/uL [place] # (Auto) 0.23 (0.11-0.59) K/uL Eos # (Auto) 0.03 (0-0.5) K/uL Baso # (Auto) 0.02 (0-0.2) K/uL Immature Gran # (Auto) 0.15 H (0.00-0.02) K/uL PT (9.0-12.0) Seconds INR (0.9-1.1) Sodium (136-145) mmol/L Potassium (3.5-5.1) mmol/L Chloride (98-107) mmol/L Carbon Dioxide (21-32) mmol/L Anion Gap (3-11) BUN (6-23) mg/dl Creatinine (0.6-1.2) mg/dl Est Cr Clr Drug Dosing Est GFR ( Amer) ml/min Est GFR (Non-Af Amer) ml/min BUN/Creatinine Ratio (10-20) Glucose (70-99(Fasting)) mg/dl Calcium (8.5-10.1) mg/dl Phosphorus (2.5-4.9) mg/dl Magnesium (1.7-2.4) mg/dl Total Bilirubin (0.2-1.0) mg/dl Direct Bilirubin (0-0.2) mg/dl AST (13-39) U/L ALT (7-52) U/L Alkaline Phosphatase (34-104) U/L Total Creatine Kinase (26-192) U/L Troponin I (0-0.04) ng/ml Total Protein (6.0-8.3) gm/dl Albumin (3.4-5.0) gm/dl Globulin (2.5-4.0) gm/dl Albumin/Globulin Ratio (0.9-2) Procalcitonin (0-0.5) ng/ml TSH (0.300-4.500) uIu/ml Urine Color Urine Appearance (Clear) Urine pH (4.5-7.5) Ur Specific [place] (1.000-1.030) Urine Protein (Negative) Urine Glucose (UA) (Negative) Urine Ketones (Negative) Urine Blood (Negative) Urine Nitrite (Negative) Urine Bilirubin (Negative) Urine Urobilinogen (Negative) Ur Leukocyte Esterase (Negative) SARS-CoV-2, RNA, NAAT (NEGATIVE) Diagnostic Findings Chest CTA 08/22/21 18:40 CT angio chest PE protocol CT DOSE: 833.34 mGy.cm HISTORY: 81 years-old Female with PE, lung ca, weakness, hypoxia. Acute weakness with hypoxia. History of lung cancer TECHNIQUE: Multiple CTA images of the chest were obtained after the intravenous administration of 120 ml Optiray. Coronal and sagittal MIPS were obtained from the axial data set and were submitted for review. All measurements were obtained according to NASCET criteria. A dose lowering technique was utilized adhering to the principles of ALARA. COMPARISON: Chest CT 07/02/2021, PET CT 07/04/2021, MRI lumbar spine 06/18/2021 FINDINGS: CTA: The heart is normal in size. Epicardial effusion. Mild coronary artery calcifications. Atherosclerosis of the thoracic aorta without aneurysm or dissection. Unremarkable pulmonary artery. Segmental and subsegmental pulmonary emboli of the left upper lobe. No right heart strain. CT CHEST: No thyroid nodule. Pathologically enlarged lower right cervical chain, mediastinal and right hilar adenopathy redemonstrated. Conglomerate right paratracheal adenopathy on image 182 measures 2.3 x 2.2 cm, previously 2.4 x 2.4 cm. No new or progressive adenopathy. Several lymph nodes have mildly decreased in size. The patient's known right upper lobe neoplasm now measures 6.1 x 6.5 x 6.1 cm, previously measuring up to 8 cm in greatest dimension. Emphysema. Patchy multifocal bilateral groundglass and alveolar opacities. Central airways are patent. Hepatic steatosis. No acute process of the imaged upper abdomen. Ill-defined hypodense 1.6 cm lesion of the left hepatic lobe is unchanged suggestive of a cyst. Unremarkable soft tissues. No acute fracture or suspicious bone lesion. Mild superior endplate compression deformity with 2 mm retropulsion at T11. This has progressed from the 07/02/2021 study, however is new from the May MRI. Additionally, there is progressed discogenic degeneration at T10-T11. IMPRESSION: 1. Small segmental and subsegmental pulmonary emboli of the left upper lobe. 2. Mildly decreased size of the right upper lobe malignant mass now measuring up to 6.5 cm compatible with positive treatment response. 3. Slightly decreased size of the metastatic thoracic lymphadenopathy. 4. Patchy multilobar bilateral groundglass and consolidative opacities are suggestive of an infectious or inflammatory pneumonitis such as viral pneumonia. 5. Progressively worsened mild to moderate acute on subacute T11 compression deformity with 2 mm retropulsion. This is new from the 06/18/2021 study. ACT 112: Negative or not required by law. The above report was generated using voice recognition software. It may contain grammatical, syntax or spelling errors. Electronically signed by: Hector Dailey M.D. 08/22/2021 8:[address] 08/22/21 18:40 CT head/brain wo con CLINICAL HISTORY: 81 years-old Female with weakness, known lung mets. Acute weakness with reported intracranial metastatic disease TECHNIQUE: Multiple axial CT images of the head were obtained without contrast. A dose lowering technique was utilized adhering to the principles of ALARA. COMPARISON: Brain MRI 07/09/2021 FINDINGS: No acute intracranial hemorrhage, midline shift, hydrocephalus, territorial ischemia or abnormal extra-axial collection. 1.9 x 1.0 cm right frontal lobe calcification is unchanged from comparison. [place]cent calcifications of the basal ganglia. Cerebral vascular calcifications. Age-related involutional changes. White matter hypodensities suggest chronic microvascular ischemic disease. Vasogenic edema of the left cerebral convexity redemonstrated. The previously described enhancing lesions seen on the prior brain MRI or not definitively seen. The calvarium is intact. Mild mucosal thickening of the ethmoid air cells. IMPRESSION: 1. No acute intracranial abnormality. 2. Vasogenic edema within the left cerebral convexity redemonstrated. The patient's known left cerebral hemisphere intracranial metastatic lesions described on the study from 07/09/2021 are not identified on this noncontrast study. 3. Right frontal lobe parenchymal calcification is unchanged. ACT 112: Negative or not required by law. The above report was generated using voice recognition software. It may contain grammatical, syntax or spelling errors. Electronically signed by: Hector Dailey M.D. 08/22/2021 8:20 PM Brain MRI 08/22/21 18:42 Brain MRI WITH AND WITHOUT CONTRAST HISTORY: weakness, known lung mets TECHNIQUE: Multiplanar multisequence MRI of the brain was performed both before and after the intravenous administration of contrast. COMPARISON STUDY: Brain MRI 07/09/2021. FINDINGS: No areas restricted diffusion to suggest acute infarction. The midline structures are intact. Right frontal lobe calcification is again noted. The ventricles and sulci demonstrate mild age-related involutional changes. The major vascular flow-voids at the skull base are well-maintained. Evidence for prior bilateral lens replacement. Paranasal sinuses and mastoid air cells are clear. Microvascular ischemic changes are again noted. Interval decrease in size within the left high convexity and left occipital metastatic foci. The vasogenic edema surrounding these lesions has also improved. A dominant lesion within the left high convexity measures 14 mm, previously measuring 17 mm. The left occipital lobe lesion measures 6 mm. No new intracranial lesions identified. Small amount of susceptibility artifact within the larger lesion may be due to trace intracranial hemorrhage. This remains unchanged. IMPRESSION: 1. Decrease in size and improvement in the surrounding edema involving the left intracranial metastatic foci. No new metastatic lesions identified. 2. No acute hemorrhage. ACT 112: Negative or not required by law. Electronically signed by: Ted Kearns M.D. 08/23/2021 7:36 AM
[2021-08-23] MEDS ORDERED: MELATONIN 3 MG TAB PO PRN (08:29)
[2021-08-23] MEDS: ENOXAPARIN INJ 60 MG/0.6 ML SYR SQ SCH ×2 (08:35→21:22)
[2021-08-23] MEDS: PANTOprazole 40 MG TAB PO SCH ×2 (08:36→21:22)
[2021-08-23] MEDS: dexAMETHasone 4 MG TAB PO SCH ×2 (10:53→21:22)
--- NOTE | 2021-08-23 11:20 | Electrocardiogram Report ---
Test Reason : Blood Pressure : / mmHG Vent. Rate : 100 BPM Atrial Rate : 100 BPM P-R Int : 164 ms QRS Dur : 068 ms QT Int : 310 ms P-R-T Axes : 073 033 092 degrees QTc Int : 399 ms Poor data quality, interpretation may be adversely affected Sinus rhythm with Premature supraventricular complexes Nonspecific T wave abnormality Abnormal ECG When compared with ECG of 22-FEB-2014 15:17, Premature supraventricular complexes are now Present Nonspecific T wave abnormality now evident in Lateral leads Confirmed by Gume Panchal ([id number]) on 08/23/2021 11:20:08 AM Referred By: REFERRED SELF Confirmed By:Rashel Panchal
[2021-08-23] MEDS ORDERED: CALCIUM CARBONATE 500 MG CHEWABLE TAB PO PRN (12:55)
--- NOTE | 2021-08-23 17:40 | Electrocardiogram Report ---
Test Reason : Blood Pressure : / mmHG Vent. Rate : 114 BPM Atrial Rate : 114 BPM P-R Int : 156 ms QRS Dur : 066 ms QT Int : 286 ms P-R-T Axes : 061 020 113 degrees QTc Int : 394 ms Poor data quality, interpretation may be adversely affected Sinus tachycardia with Premature atrial complexes Abnormal ECG When compared with ECG of 22-FEB-2014 15:17, Premature atrial complexes are now Present T wave inversion now evident in Lateral leads Confirmed by Gume Panchal ([id number]) on 08/23/2021 5:39:59 PM Referred By: REFERRED SELF Confirmed By:Rashel Panchal
[2021-08-24 07:18] LABS: Basophils # (auto) 0.01 K/uL (0-0.2); Basophils % (auto) 0.2 %; Eosinophils # (auto) 0.02 K/uL (0-0.5); Eosinophils % (auto) 0.3 %; Hematocrit (blood only) 34.5 % (37-47); Hemoglobin 11.7 g/dL (12.0-16.0); Immature Granulocytes # (auto) 0.05 K/uL (0.00-0.02); Immature Granulocytes % (auto) 0.8 %; Lymphocytes % (auto) 9.5 %; Mean Corpuscular Hemoglobin 32.1 pg (25-34); Mean Corpuscular Hgb Conc 33.9 g/dL (32-36); Mean Corpuscular Volume 94.5 fL (80-100); Mean Platelet Volume 9.7 fL (7.4-10.4); Monocytes # (auto) 0.13 K/uL (0.11-0.59); Monocytes % (auto) 2.1 %; Neutrophils # (auto) 5.53 K/uL (1.4-6.5); Neutrophils % (auto) 87.1 %; Platelet Count 105 K/uL (130-400); RDW Coefficient of Variation 16.5 % (11.5-14.5); RDW Standard Deviation 57.5 fL (36.4-46.3); Red Blood Count 3.65 M/uL (4.2-5.4); White Blood Count 6.34 K/uL (4.8-10.8)
[2021-08-24 07:43] LABS: BUN Creatinine Ratio 29.4 (10-20); Calcium 10.2 mg/dl (8.5-10.1); Creatinine Clr Calc Pharmacy 108.3 ml/min; Est GFR (African American) 117.8 ml/min; Est GFR (Non-African American) 101.6 ml/min; Potassium 3.9 mmol/L (3.5-5.1)
[2021-08-24] MEDS: dexAMETHasone 4 MG TAB PO SCH ×2 (08:32→20:58)
[2021-08-24] MEDS: ENOXAPARIN INJ 60 MG/0.6 ML SYR SQ SCH (08:32)
[2021-08-24] MEDS: PANTOprazole 40 MG TAB PO SCH ×2 (08:32→20:58)
[2021-08-24] MEDS ORDERED: dexAMETHasone 4 MG TAB PO SCH (09:00)
[2021-08-24] MEDS ORDERED: ENOXAPARIN 1.5 MG/KG SQ SCH (11:30)
[2021-08-24] MEDS ORDERED: POTASSIUM CHLORIDE CRTAB 20 MEQ TABCR PO STA (11:36)
--- NOTE | 2021-08-24 13:27 | Medical Student Progress Note ---
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 Pulmonary emboli in the setting of malignancy - VSS, adequate saturation on 5L O2 by NC - Lovenox 90 mg daily (1.5 mg/kg), switched from BID dosing - Chest CTA 08/22/21 showed small segmental and subsegmental PEs of left upper lobe of lung - PESI score 133, class V, very high risk (10-25% 30-day mortality risk) - fibrinolytic therapy not indicated, as patient was hemodynamically stable with no signs of RV dysfunction Tachycardia, likely secondary to PE - patient has been consistently tachycardic in the low 100s since admission despite increasing oxygen from 5L to 6L - start metoprolol succinate 12.5 mg daily Lumbar back pain - per patient's daughter, Ириан has had lower back pain - midline TTP in lumbar region - lumbar spine XR 08/24/21 shows degenerative changes but no acute fractures - receiving tylenol and oxycodone PRN for cancer-related pain Weakness - Head CT and brain MRI showed no acute pathology, some decrease in size of known metastases and no new metastases - PT recommends return to home with 24h care T11 compression deformity, subacute to chronic - observed on CTA 08/22/21 and lumbar spine XR on 08/24/21 - no pain or tenderness in the thoracic spine - has had previous bisphosphonate treatment - potential candidate for denosumab, defer to PCP Cerebral edema, secondary to brain metastases - Improved on most recent MRI - Continue dexamethasone Malignant neoplasm of lung with metastatic disease to brain - S/p SBRT, completed 08/15 - started Keytruda on 08/20/21 - Continue dexamethasone - Continue Tylenol and Oxycodone as needed Code status: Full code Dispo: med/surg with tele DVT Prophylaxis: Lovenox 90 mg daily FEN/GI: regular diet (2) Weakness: (3) Malignant neoplasm of upper lobe, right bronchus or lung: (4) Secondary malignant neoplasm of brain: Admission and Anticipated Discharge Date Admission Date: August 22, 2021 Supervising Attestation Patient seen and examined with MADDIE Partida. Agree with history, exam findings, assessment and plan of care as outlined. 81 year old female with history of recent lung adenocarcinoma with brain mets admitted with fatigue, weakness found to have PE (left upper lobe). Feeling wellno chest pain or dyspnea. Has been experiencing some low back pain. Daughter noting that she had bruising in the area. VS and nursing notes reviewed. Well appearing. Breathing is not labored. Lungs clear to auscultation. Midline tenderness around L3. No bruising over the area. Labs reviewed. 1. Pulmonary embolism with hypoxia. Secondary to malignancy. 5L O2. Switch to daily Lovenox dosing (90mg daily). 2. Tachycardia. ?secondary to PE. Start 12.5mg metoprolol succinate. If worsening, or increasing O2 saturation, consider repeat CTA +/- Echo to evaluate for extension of PE and RV dysfunction. 3. Generalized weakness. CT head, brain MRI with no acute pathology. PT/OT. 4. Low back pain. Lumbar spine x-ray with degenerative changes but no acute or subacute fracture. 5. Cerebral edema. Continue decadron taper. 6. Lung adenocarcinoma with brain mets. S/p SBRT and on Keytruda. Continue dexamethasone, Tylenol, oxycodone. 7. T11 compression deformity. Subacute. Asymptomatic. Defer additional antifracture treatment to oncology and PCP. 8. Lung cancer with metastatic disease to the brain. Pain control with Tylenol and oxycodone. Keytruda. Dispo: pending clinical improvement. Subjective This AM, patient says she feels ok. She denies shortness of breath and change in her chronic cough. She continues to feel weak. Review of Systems Constitutional: per subjective Physical Exam Constitutional: WD/WN, vitals as above Eyes: PERRL, conjunctivae normal, anicteric sclerae ENMT: external ear and nose normal, oropharynx normal Neck: trachea midline, no thyromegaly Respiratory: normal respiratory effort, lungs clear to auscultation Cardiovascular: Rate/Rhythm: regular rhythm and + tachycardic Heart Sounds: normal S1 and normal S2; no gallop, no murmur and no cardiac rub Gastrointestinal (Abdomen): normal bowel sounds, soft, nontender, no he patosplenomegaly Musculoskeletal: midline tenderness to palpation in lumbar region Results & Data ([facility]) Vital Signs (Past 12 Hours) Vital Signs Temp Pulse Pulse Resp BP Pulse Ox 08/24/21 11:54 36.7 C 83 14 106/71 91 08/24/21 09:54 101 H 08/24/21 07:27 36.7 C 97 H 18 124/80 90 08/24/21 04:00 36.7 C 97 H 16 103/66 90 Resident Activity Tracking Resident Involvement: Resident Care Provided Care Provided: Adult Hospital Medicine
--- NOTE | 2021-08-24 16:15 | XRay Report ---
LUMBAR SPINE 3 VIEWS HISTORY: Lumbar spinous process tenderness, hx of osteoporosis COMPARISON: Lumbar spine 06/06/2021. FINDINGS: There is no fracture. There is grade 1 retrolisthesis of L2 on L3 and L3 on L4, unchanged. Severe disc space narrowing at L1-L2 and L2-L3. Moderate disc space narrowing at L3-L4 and L5-S1. Mo derate facet degenerative changes within the lower lumbar spine. Mild loss of height within the super ior endplate of T11. No associated retropulsion. This is consistent with a subacute to chronic compre ssion fracture. The sacrum is intact. Mild levoscoliosis, unchanged. IMPRESSION: 1. No acute fractures within the lumbar spine. 2. Degenerative changes as described above. 3. A subacute to chronic mild superior endplate compression fracture at T11. ACT 112: Negative or not required by law. Electronically signed by: Ted Kearns M.D. 08/24/2021 4:14 PM
[2021-08-24] MEDS: METOPROLOL SUCC 25MG EXT REL TAB PO SCH (17:44)
[2021-08-24] MEDS: ENOXAPARIN 100 MG/1ML SYR SQ SCH (20:58)
[2021-08-25 06:38] LABS: Basophils # (auto) 0.01 K/uL (0-0.2); Basophils % (auto) 0.1 %; Hematocrit (blood only) 33.7 % (37-47); Hemoglobin 11.3 g/dL (12.0-16.0); Immature Granulocytes # (auto) 0.09 K/uL (0.00-0.02); Immature Granulocytes % (auto) 1.3 %; Lymphocytes # (auto) 0.71 K/uL (1.2-3.4); Lymphocytes % (auto) 10.3 %; Mean Corpuscular Hemoglobin 31.9 pg (25-34); Mean Corpuscular Hgb Conc 33.5 g/dL (32-36); Mean Corpuscular Volume 95.2 fL (80-100); Mean Platelet Volume 10.2 fL (7.4-10.4); Monocytes # (auto) 0.25 K/uL (0.11-0.59); Monocytes % (auto) 3.6 %; Neutrophils # (auto) 5.85 K/uL (1.4-6.5); Neutrophils % (auto) 84.7 %; Platelet Count 114 K/uL (130-400); RDW Coefficient of Variation 16.2 % (11.5-14.5); RDW Standard Deviation 56.8 fL (36.4-46.3); Red Blood Count 3.54 M/uL (4.2-5.4); White Blood Count 6.91 K/uL (4.8-10.8)
--- NOTE | 2021-08-25 06:45 | Hospitalist Progress Note ---
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 Acute Hypoxemia in the setting of CAP vs Hospital Acquired Pneumonia - With worsening oxygenation, increased work of breathing, and bloody sputum - Chest XR with concern for infiltrates vs interstitial fluid in the bases - Procalcitonin elevated at 0.84 up from 0.41 since admission - MRSA nares negative - Concerning for both CAP vs Hospital acquired pneumonia based on timeline of symptoms in addition to initial chest CT - Start IV Zosyn in addition to PO Azithromycin - With concern for pulmonary edema, 20mg IV lasix given today with good diuresis of 1200mL - Repeat CXR in the AM Pulmonary emboli in the setting of malignancy - Lovenox 90 mg daily (1.5 mg/kg), switched from BID dosing - Chest CTA 08/22/21 showed small segmental and subsegmental PEs of left upper lobe of lung - PESI score 133, class V, very high risk (10-25% 30-day mortality risk) - fibrinolytic therapy not indicated, as patient was hemodynamically stable with no signs of RV dysfunction Tachycardia, likely secondary to PE - patient has been consistently tachycardic in the low 100s since admission - start metoprolol succinate 12.5 mg daily - Suspect improvement as well with treatment of pneumonia Lumbar back pain - per patient's daughter, Ирина has had lower back pain - midline TTP in lumbar region - lumbar spine XR 08/24/21 shows degenerative changes but no acute fractures - receiving tylenol and oxycodone PRN for cancer-related pain Weakness - Head CT and brain MRI showed no acute pathology, some decrease in size of known metastases and no new metastases - PT recommends return to home with 24h care T11 compression deformity, subacute to chronic - observed on CTA 08/22/21 and lumbar spine XR on 08/24/21 - no pain or tenderness in the thoracic spine - has had previous bisphosphonate treatment - potential candidate for denosumab, defer to PCP Cerebral edema, secondary to brain metastases - Improved on most recent MRI - Continue dexamethasone Malignant neoplasm of lung with metastatic disease to brain - S/p SBRT, completed 08/15 - started Keytruda on 08/20/21 - Continue dexamethasone - Continue Tylenol and Oxycodone as needed Code status: Full code Dispo: med/surg with tele DVT Prophylaxis: Lovenox 90 mg daily FEN/GI: regular diet (2) Weakness: (3) Malignant neoplasm of upper lobe, right bronchus or lung: (4) Secondary malignant neoplasm of brain: Admission and Anticipated Discharge Date Admission Date: August 22, 2021 Supervising Physician Co-Signing Physician Notes Patient seen and examined with PGY-3 Dr. Berrios. Agree with history, exam findings, assessment and plan of care as outlined. 81 year old female with history of recent lung adenocarcinoma with brain mets admitted with fatigue, weakness found to have PE (left upper lobe). Overnight, increasing O2 need and required BiPAP. Continues to have an increased O2 need this morning. This morning, chest x-ray with slight increase in pulmonary edema and ?increasing opacities. Procalcitonin elevated. VS and nursing notes reviewed. Well appearing. Heart [id number]. Tachypneic. Crackles to the mid-lung bilaterally. Labs reviewed. 1. Pulmonary embolism with hypoxia. Secondary to malignancy. 5L O2. Switch to daily Lovenox dosing (90mg daily). TTE with preserved EF (60-65%), mild concentric LVH, no regional wall motion abnormality; right ventricle was not well visualized. 2. Health care associated pneumonia. MRSA negative. Start zosyn and azithromycin for atypical coverage. Plan would be to discharge on levofloxacin. 3. Low back pain. Lumbar spine x-ray with degenerative changes but no acute or subacute fracture. 4. Cerebral edema. Continue decadron taper. 5. Lung adenocarcinoma with brain mets. S/p SBRT and on Keytruda. Continue dexamethasone, Tylenol, oxycodone. 6. T11 compression deformity. Subacute. Asymptomatic. Defer additional antifracture treatment to oncology and PCP. Dispo: pending clinical improvement. Subjective Patient evaluated at the bedside this AM, daughter on telephone. Patient appeared someone distressed in regards to her breathing while on 9L Oxymask, however, noted she her "breathing feels fine." She did note that she had been having some bloody sputum production with her coughs. She notes that overnight she had felt increased SOB, but that it resolved with the cpap use. She denies any fever, chills, chest pain, abdominal pain. Review of Systems Review of Systems: All systems reviewed & are unremarkable except as noted in Subjective Physical Exam Constitutional: + ill appearing and + frail appearing Respiratory: + labored breathing Auscultation: + diminished lung sounds and + crackles (in bases b/l ) Cardiovascular: Rate/Rhythm: regular rhythm and + tachycardic Heart Sounds: normal S1 and normal S2; no murmur Extremities: + edema (+1) Gastrointestinal (Abdomen): normal bowel sounds, soft, nontender, no hepatosplenomegaly Psychiatric: A+Ox3, euthymic affect Results & Data Results & Data ([facility]) Vital Signs (Past 12 Hours) Vital Signs Temp Pulse Pulse Resp BP Pulse Ox 08/25/21 03:02 37.1 C 88 18 117/76 93 08/25/21 02:19 89 30 H 97 08/24/21 23:26 36.5 C 96 H 20 118/74 97 08/24/21 23:00 101 H 08/24/21 21:25 108 H 26 H 97 08/24/21 19:18 36.9 C 105 H 22 115/76 89 L Resident Activity Tracking Resident Involvement: Resident Care Provided Care Provided: Adult Hospital Medicine
[2021-08-25 07:03] LABS: BUN Creatinine Ratio 32.5 (10-20); Calcium 10.3 mg/dl (8.5-10.1); Est GFR (African American) 111.6 ml/min; Est GFR (Non-African American) 96.3 ml/min; Magnesium 1.8 mg/dl (1.7-2.4); Potassium 4.1 mmol/L (3.5-5.1)
[2021-08-25] MEDS: PANTOprazole 40 MG TAB PO SCH ×2 (07:40→20:43)
[2021-08-25] MEDS: METOPROLOL SUCC 25MG EXT REL TAB PO SCH (07:41)
[2021-08-25] MEDS: dexAMETHasone 4 MG TAB PO SCH (07:51)
[2021-08-25] MEDS ORDERED: FUROSEMIDE INJ 20 MG/2 ML VIAL IV ONE (07:58)
--- NOTE | 2021-08-25 08:12 | XRay Report ---
XR chest 1V portable CLINICAL HISTORY: increased o2 need. Lung cancer. COMPARISON STUDY: Chest CT August 22, 2021. FINDINGS: The right upper lobe mass is better depicted on chest CT of August 22, 2021. There is no pneumothorax or pleural effusion. There has been slight progression of interstitial thickening and pa tchy bilateral opacities. Cardiomediastinal silhouette is stable. IMPRESSION: 1. Slight progression of interstitial thickening and patchy bilateral opacities which favors an infec tious process. Pulmonary edema appears similar although is considered less likely. 2. Right upper lobe mass, better depicted on recent chest CT. ACT 112: Negative or not required by law. Electronically signed by: Ranjit Monterroso M.D. 08/25/2021 8:11 AM
[2021-08-25] MEDS ORDERED: PIPERACILL/TAZOBAC CONSULT ACTIVE PRN (11:03)
[2021-08-25] MEDS ORDERED: PIPERACILLIN/TAZOBACTAM 3.375 GM in DEXTROSE 5% 100 ML IV ONE (11:30)
--- NOTE | 2021-08-25 12:33 | XCELERA ---
[id number]
[2021-08-25] MEDS: ACETAMINOPHEN 325 MG TAB PO PRN (14:21)
[2021-08-25] MEDS: PIPERACILLIN/TAZOBACTAM 3.375 GM in DEXTROSE 5% 100 ML IV SCH (15:55)
[2021-08-25] MEDS ORDERED: AZITHROMYCIN 250 MG TAB PO ONE (16:33)
[2021-08-25] MEDS: ENOXAPARIN 100 MG/1ML SYR SQ SCH (20:43)
[2021-08-26] MEDS: PIPERACILLIN/TAZOBACTAM 3.375 GM in DEXTROSE 5% 100 ML IV SCH ×3 (01:58→16:59)
--- NOTE | 2021-08-26 06:52 | Hospitalist Progress Note ---
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 Acute Hypoxemia in the setting of CAP vs Hospital Acquired Pneumonia - With worsening oxygenation, increased work of breathing, and bloody sputum - Chest XR with concern for infiltrates vs interstitial fluid in the bases -- Repeat today notable for progression of intersticial thicken and patchy bilateral opacities, suspect this due to lag between clinical picture and imaging - Procalcitonin elevated at 0.84 up from 0.41 since admission -- has downtrended to 0.63 today - MRSA nares negative - Concerning for both CAP vs Hospital acquired pneumonia based on timeline of symptoms in addition to initial chest CT - Start IV Zosyn in addition to PO Azithromycin - With concern for pulmonary edema, 20mg IV lasix given with good diuresis of 1200mL -- additional 40mg IV lasix given today continued crackles in lungs - Repeat CXR in the AM - Will consider use of bipap at night if requiring further oxygen requirements Pulmonary emboli in the setting of malignancy - Lovenox 90 mg daily (1.5 mg/kg), switched from BID dosing - Chest CTA 08/22/21 showed small segmental and subsegmental PEs of left upper lobe of lung - PESI score 133, class V, very high risk (10-25% 30-day mortality risk) - fibrinolytic therapy not indicated, as patient was hemodynamically stable with no signs of RV dysfunction Tachycardia, likely secondary to PE - patient has been consistently tachycardic in the low 100s since admission - started on metoprolol succinate 12.5 mg daily -- Will transition to Metoprolol Tartrate 25mg BID in the AM - Suspect improvement as well with treatment of pneumonia Lumbar back pain - per patient's daughter, Ирина has had lower back pain - midline TTP in lumbar region - lumbar spine XR 08/24/21 shows degenerative changes but no acute fractures - receiving tylenol and oxycodone PRN for cancer-related pain Weakness - Head CT and brain MRI showed no acute pathology, some decrease in size of known metastases and no new metastases - PT recommends return to home with 24h care T11 compression deformity, subacute to chronic - observed on CTA 08/22/21 and lumbar spine XR on 08/24/21 - no pain or tenderness in the thoracic spine - has had previous bisphosphonate treatment - potential candidate for denosumab, defer to PCP Cerebral edema, secondary to brain metastases - Improved on most recent MRI - Continue dexamethasone Malignant neoplasm of lung with metastatic disease to brain - S/p SBRT, completed 08/15/21 - started Keytruda on 08/20/21 - Continue dexamethasone - Continue Tylenol and Oxycodone as needed Code status: Full code Dispo: med/surg with tele DVT Prophylaxis: Lovenox 90 mg daily FEN/GI: regular diet (2) Weakness: (3) Malignant neoplasm of upper lobe, right bronchus or lung: (4) Secondary malignant neoplasm of brain: Admission and Anticipated Discharge Date Admission Date: August 22, 2021 Supervising Physician Co-Signing Physician Notes Patient seen and examined with PGY-3 Dr. Berrios. Agree with history, exam findings, assessment and plan of care as outlined. 81 year old female with history of recent lung adenocarcinoma with brain mets admitted with fatigue, weakness found to have PE (left upper lobe). Overnight, continued with increased O2 demand. No fevers, chills. VS and nursing notes reviewed. Nontoxic appearing. Heart [id number]. Trace edema in the lower extremities. No increased work of breathing. Crackles in the bases. Labs and imaging reviewed. 1. Pulmonary embolism with hypoxia. Secondary to malignancy. 15L O2. Continue daily Lovenox dosing (90mg daily). TTE with preserved EF (60-65%), mild concentric LVH, no regional wall motion abnormality; right ventricle was not well visualized. 2. CAP vs health care associated pneumonia. MRSA negative. Start zosyn and azithromycin for atypical coverage. 3. acute respiratory failure. secondary to PE, pneumonia, ?pulmonary edema vs early maliganant effusion. 15L oxymask. 40mg IV lasix today, monitor I/O's + renal function. Wean O2 as able. 3. tachycardia. suspect this is related to PE and pneumonia. Treatment as above. Prior EKG showed sinus tachycardia. Switched metoprolol succinate to metoprolol tartrate 25mg BID. 4. Cerebral edema. Continue decadron taper. 5. Lung adenocarcinoma with brain mets. S/p SBRT and on Keytruda. Continue dexamethasone, Tylenol, oxycodone. 6. T11 compression deformity. Subacute. Asymptomatic. Defer additional antifracture treatment to oncology and PCP. Dispo: broached topic of goals of care, son is arriving from [place] tomorrow. Subjective Patient evaluated at the bedside. She notes that her breathing feels minimally improved since the day prior. She notes that overnight while she did not feel more short of breath, she did require increase in her oxygen again. She notes that the blood from her cough has reduced. She denies any fever, chills, abdominal pain. Review of Systems Review of Systems: All systems reviewed & are unremarkable except as noted in Subjective Physical Exam Constitutional: + ill appearing and + frail appearing Respiratory: + labored breathing Auscultation: + diminished lung sounds and + crackles (in bases b/l ) Cardiovascular: Rate/Rhythm: regular rhythm and + tachycardic Heart Sounds: normal S1 and normal S2; no murmur Extremities: + edema (+1) Gastrointestinal (Abdomen): normal bowel sounds, soft, nontender, no hepatosplenomegaly Psychiatric: A+Ox3, euthymic affect Results & Data Results & Data ([facility]) Vital Signs (Past 12 Hours) Vital Signs Temp Pulse Pulse Resp BP Pulse Ox 08/26/21 06:27 36.7 C 96 H 21 133/80 91 08/26/21 04:27 36.5 C 95 H 18 123/79 92 08/25/21 23:13 36.8 C 92 H 17 130/70 93 08/25/21 23:02 105 H 08/25/21 19:28 36.6 C 90 18 126/76 92 Resident Activity Tracking Resident Involvement: Resident Care Provided Care Provided: Adult Hospital Medicine
[2021-08-26] MEDS: AZITHROMYCIN 250 MG TAB PO SCH (07:15)
[2021-08-26] MEDS: PANTOprazole 40 MG TAB PO SCH ×2 (07:15→21:55)
[2021-08-26] MEDS: METOPROLOL SUCC 25MG EXT REL TAB PO SCH (07:16)
[2021-08-26] MEDS: dexAMETHasone 4 MG TAB PO SCH (07:18)
[2021-08-26 07:52] LABS: Basophils # (auto) 0.03 K/uL (0-0.2); Basophils % (auto) 0.4 %; Eosinophils # (auto) 0.01 K/uL (0-0.5); Eosinophils % (auto) 0.1 %; Hematocrit (blood only) 35.4 % (37-47); Hemoglobin 11.8 g/dL (12.0-16.0); Immature Granulocytes # (auto) 0.16 K/uL (0.00-0.02); Immature Granulocytes % (auto) 2.4 %; Lymphocytes # (auto) 0.71 K/uL (1.2-3.4); Lymphocytes % (auto) 10.4 %; Mean Corpuscular Hemoglobin 31.8 pg (25-34); Mean Corpuscular Hgb Conc 33.3 g/dL (32-36); Mean Corpuscular Volume 95.4 fL (80-100); Monocytes # (auto) 0.17 K/uL (0.11-0.59); Monocytes % (auto) 2.5 %; Neutrophils # (auto) 5.72 K/uL (1.4-6.5); Neutrophils % (auto) 84.2 %; Nucleated RBC # (auto) 0.05 K/uL (0-0); Nucleated RBC % (auto) 0.7 %; Platelet Count 123 K/uL (130-400); RDW Coefficient of Variation 16.1 % (11.5-14.5); Red Blood Count 3.71 M/uL (4.2-5.4)
--- NOTE | 2021-08-26 08:07 | XRay Report ---
XR chest 1V portable CLINICAL HISTORY: Cough, increased O2 demand COMPARISON STUDY: Chest CT August 22, 2021. Chest radiograph August 25, 2021. FINDINGS: The right upper lobe mass is better depicted on recent chest CT. There is no pneumothorax o r pleural fusion. Cardiomediastinal silhouette is stable. Interstitial thickening and bilateral airsp yury opacities have progressed. IMPRESSION: 1. Progression of interstitial thickening and patchy bilateral opacities. The findings favor pneumoni a however pulmonary edema appears similar. 2. Right upper lobe mass, better depicted on recent chest CT. ACT 112: Negative or not required by law. Electronically signed by: Ranjit Monterroso M.D. 08/26/2021 8:06 AM
[2021-08-26 08:21] LABS: BUN Creatinine Ratio 37.8 (10-20); Calcium 10.1 mg/dl (8.5-10.1); Creatinine Clr Calc Pharmacy 81.8 ml/min; Est GFR (African American) 107.4 ml/min; Est GFR (Non-African American) 92.7 ml/min; Potassium 3.6 mmol/L (3.5-5.1)
[2021-08-26] MEDS ORDERED: POTASSIUM CHLORIDE CRTAB 20 MEQ TABCR PO STA (08:29)
[2021-08-26] MEDS ORDERED: FUROSEMIDE 40 MG/4 ML VIAL IV ONE (08:29)
[2021-08-26] MEDS: ENOXAPARIN 100 MG/1ML SYR SQ SCH (21:55)
[2021-08-27] MEDS: PIPERACILLIN/TAZOBACTAM 3.375 GM in DEXTROSE 5% 100 ML IV SCH ×4 (00:37→23:59)
--- NOTE | 2021-08-27 06:54 | Hospitalist Progress Note ---
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 Acute Hypoxemia in the setting of CAP vs Hospital Acquired Pneumonia - With worsening oxygenation, increased work of breathing, and bloody sputum - CXR with concern for infiltrates vs interstitial fluid in the bases -- Repeat 08/26 notable for progression of interstitial thicken and patchy bilateral opacities, 08/27 with similar findings - Procalcitonin elevated at 0.84 up from 0.41 since admission -- downtrended to 0.63 on 08/26 - MRSA nares negative - Concerning for both CAP vs Hospital acquired pneumonia based on timeline of symptoms in addition to initial chest CT - Continue IV Zosyn in addition to PO Azithromycin - With concern for pulmonary edema, 20mg IV Lasix given with good diuresis of 1200mL -- additional 40mg IV Lasix 08/26 & 08/27 - Saturating well at 96% on 15 L oxygen mask -- will place on BiPAP HS to help with respiratory fatigue Pulmonary emboli in the setting of malignancy - Lovenox 90 mg daily (1.5 mg/kg), switched from BID dosing - Chest CTA 08/22/21 showed small segmental and subsegmental PEs of left upper lobe of lung - PESI score 133, class V, very high risk (10-25% 30-day mortality risk) - fibrinolytic therapy not indicated, as patient was hemodynamically stable with no signs of RV dysfunction Tachycardia, likely secondary to PE - patient has been consistently tachycardic in the low 100s since admission - Continue Metoprolol Tartrate 25mg BID -- if tolerating this dosing into tonight, can consider transitioning to MTP succinate 25mg daily - Suspect improvement as well with treatment of pneumonia Lumbar back pain - per patient's daughter, Ирина has had lower back pain - midline TTP in lumbar region - lumbar spine XR 08/24/21 shows degenerative changes but no acute fractures - receiving Tylenol and oxycodone PRN for cancer-related pain Weakness - Head CT and brain MRI showed no acute pathology, some decrease in size of known metastases and no new metastases - PT recommends return to home with 24h care T11 compression deformity, subacute to chronic - observed on CTA 08/22/21 and lumbar spine XR on 08/24/21 - no pain or tenderness in the thoracic spine - has had previous bisphosphonate treatment - potential candidate for denosumab, defer to PCP Cerebral edema, secondary to brain metastases - Improved on most recent MRI - Continue dexamethasone Malignant neoplasm of lung with metastatic disease to brain - S/p SBRT, completed 08/15/21 - started Keytruda on 08/20/21 - Continue dexamethasone - Continue Tylenol and Oxycodone as needed Code status: Full code Dispo: Med tele DVT Prophylaxis: Lovenox 90 mg daily FEN/GI: regular diet (2) Weakness: (3) Malignant neoplasm of upper lobe, right bronchus or lung: (4) Secondary malignant neoplasm of brain: Admission and Anticipated Discharge Date Admission Date: August 22, 2021 Supervising Physician Co-Signing Physician Notes I personally examined the patient and verified all puckett points of history and exam, discussed case, and agree with decision making with Dr Barraza. Not really feeling any dyspnea or air hunger, but feels very weak and fatigued. No appetite. Vitals noted, in general she is awake and alert fatigued but no overt distress. Lungs show diffuse rales throughoutdue to her weakness I am able to get a much better listen to her right lung than the left, but diffuse rales noted. No accessory muscle use no rhonchi no wheezes good effort. Extremities show no cyanosis clubbing or edema. Neuro without focal deficits. Progressive hypoxic respiratory failureappears to be predominantly due to pulmonary inflammatory processreview of her CT from seems to suggest that a viral pneumonia was more culprit in her hypoxia than the PEs, with worsening, oncology requested a repeat CT chestthis was done. Waiting for radiology to read, but on my review the PEs can no longer see, but the bilateral inflammatory/infectious process appears much worse. Continue antibiotics, diuresis for net negative fluid balance, oxygen and supportive care as possible. She tested positive for Covid 6 weeks ago, negative now, I wonder if some of this could be a slowly worsening late inflammatory response given the rest of her compromised status, versus a different process. Await formal read. Otherwise as above Subjective No acute events overnight. Patient seen at bedside this morning. She was breathing comfortably with oxymask. However, she does report feeling significantly tired and weak. Denies feeling short of breath at this time. No fever, chills, nausea, vomiting, abdominal pain, chest pain, palpitations, headache, dizziness. Review of Systems Review of Systems: per HPI Physical Exam Constitutional: + ill appearing and + frail appearing Respiratory: normal respiratory effort; no respiratory distress and no labored breathing Auscultation: + diminished lung sounds and + rales Cardiovascular: Rate/Rhythm: regular rhythm and + tachycardic Heart Sounds: normal S1 and normal S2; no murmur Extremities: + edema (trace) Gastrointestinal (Abdomen): normal bowel sounds, soft, nontender, no hepatosplenomegaly Psychiatric: A+Ox3, euthymic affect Results & Data Results & Data ([facility]) Vital Signs (Past 12 Hours) Vital Signs Temp Pulse Resp BP BP Pulse Ox 08/27/21 05:07 36.6 C 104 H 18 119/77 0 L 08/27/21 00:24 36.7 C 105 H 22 121/79 91 08/26/21 19:39 36.4 C L 103 H 24 118/67 91 Resident Activity Tracking Resident Involvement: Resident Care Provided Care Provided: Adult [facility]
[2021-08-27 07:04] LABS: Basophils # (auto) 0.03 K/uL (0-0.2); Basophils % (auto) 0.5 %; Eosinophils # (auto) 0.04 K/uL (0-0.5); Eosinophils % (auto) 0.6 %; Hematocrit (blood only) 37.4 % (37-47); Hemoglobin 12.4 g/dL (12.0-16.0); Immature Granulocytes # (auto) 0.11 K/uL (0.00-0.02); Immature Granulocytes % (auto) 1.7 %; Lymphocytes # (auto) 0.82 K/uL (1.2-3.4); Lymphocytes % (auto) 12.5 %; Mean Corpuscular Hemoglobin 31.6 pg (25-34); Mean Corpuscular Hgb Conc 33.2 g/dL (32-36); Mean Corpuscular Volume 95.2 fL (80-100); Mean Platelet Volume 10.3 fL (7.4-10.4); Neutrophils # (auto) 5.37 K/uL (1.4-6.5); Neutrophils % (auto) 81.7 %; Nucleated RBC # (auto) 0.07 K/uL (0-0); Nucleated RBC % (auto) 1.1 %; Platelet Count 119 K/uL (130-400); RDW Coefficient of Variation 16.1 % (11.5-14.5); RDW Standard Deviation 56.2 fL (36.4-46.3); Red Blood Count 3.93 M/uL (4.2-5.4); White Blood Count 6.57 K/uL (4.8-10.8)
--- NOTE | 2021-08-27 07:12 | XRay Report ---
XR chest 1V portable CLINICAL HISTORY: cough, SOB, increased o2 demand COMPARISON STUDY: Chest radiograph August 26, 2021. FINDINGS: Right upper lobe mass is again noted. There is no pneumothorax or pleural effusion. Interst itial thickening is again noted. Bilateral airspace opacities, most prominent within the left lower l obe are similar to prior exam. Cardiomediastinal silhouette is stable. IMPRESSION: 1. Bilateral airspace opacities and interstitial thickening, similar to prior exam. The findings favo r multifocal pneumonia. 2. Right upper lobe mass, better depicted on recent chest CT. ACT 112: Negative or not required by law. Electronically signed by: Ranjit Monterroso M.D. 08/27/2021 7:11 AM
[2021-08-27 07:34] LABS: Albumin Globulin Ratio 0.9 (0.9-2); Albumin Level 2.9 gm/dl (3.4-5.0); Bilirubin,Total 0.7 mg/dl (0.2-1.0); Calcium 10.6 mg/dl (8.5-10.1); Creatinine Clr Calc Pharmacy 73.6 ml/min; Est GFR (African American) 103.7 ml/min; Est GFR (Non-African American) 89.5 ml/min; Globulin 3.4 gm/dl (2.5-4.0); Magnesium 1.9 mg/dl (1.7-2.4); Potassium 3.5 mmol/L (3.5-5.1); Total Protein 6.3 gm/dl (6.0-8.3)
[2021-08-27] MEDS: AZITHROMYCIN 250 MG TAB PO SCH (08:59)
[2021-08-27] MEDS: dexAMETHasone 4 MG TAB PO SCH (08:59)
[2021-08-27] MEDS: METOPROLOL TARTRATE 25 MG TAB PO SCH ×2 (08:59→21:00)
[2021-08-27] MEDS: PANTOprazole 40 MG TAB PO SCH ×2 (08:59→21:01)
[2021-08-27] MEDS ORDERED: FUROSEMIDE 40 MG/4 ML VIAL IV ONE (10:35)
[2021-08-27] MEDS ORDERED: BENZONATATE 100 MG CAPSULE PO PRN (10:44)
[2021-08-27] MEDS ORDERED: OPTIRAY 320 125ml IV ONE (16:21)
--- NOTE | 2021-08-27 17:31 | Billing Data ---
Date of Service August 27, 2021 Coding Level of Care Code 89954 Subseq Hosp Care Lvl 3
--- NOTE | 2021-08-27 17:44 | CT Scan Report ---
CT angio chest PE protocol CLINICAL HISTORY: PE TECHNIQUE: Multidetector row helical CT of the chest was performed with angiographic protocol. Betancourt l and sagittal reformations were obtained. Coronal and sagittal MIPS were obtained from the axial marilyn a set and were submitted for review. Automated dose lowering techniques and/or adjustment according to patient size were utilized for this exam. Comparison: Comparison is made to CT chest 08/22/2021 FINDINGS: Lungs and pleura: Redemonstration of large right upper lobe mass. Extensive emphysematous and scarrin g changes are seen along with traction bronchiectasis. Extensive groundglass opacities have increased from prior. Heart and pericardium: Heart size is normal. No pericardial effusion. Vessels: The pulmonary trunk is enlarged measuring 37 mm. Interval resolution of previously noted pul monary emboli in the left upper lobe. Mediastinum and oliverio: Multiple enlarged lymph nodes are seen including an aortopulmonary node measuri ng 12 mm and a right lower paratracheal node measuring 13 mm and a subcarinal node measuring 13 mm. Chest wall and lower neck: There is an 11 mm left cervical node. Abdomen: Hepatic steatosis is noted. Bones: Unremarkable. IMPRESSION: 1. Interval resolution of previously noted pulmonary embolism. Extensive emphysematous and scarring changes are again seen. Increased groundglass opacities compatible with worsening pneumonia. Given th e rapidity of spread, lepidic spread of tumor is considered unlikely. 2. Pulmonary hypertension. 3. Redemonstration of right upper lobe mass and mediastinal and cervical lymphadenopathy. ACT 112: Negative or not required by law. Electronically signed by: Herb Jonas M.D. 08/27/2021 5:43 PM
[2021-08-27 19:19] LABS: Base Excess VBG 3.2 mEq/L; Oxygen Saturation VBG 95.4 %; pH VBG 7.47 (7.36-7.41)
[2021-08-27] MEDS: ENOXAPARIN 100 MG/1ML SYR SQ SCH (21:01)
--- NOTE | 2021-08-28 00:13 | Consultation Report ---
DATE OF SERVICE: 08/27/2021. REASON FOR CONSULTATION: Metastatic lung cancer HISTORY OF PRESENT ILLNESS: Ms. Piña is a very pleasant 81-year-old patient who follows with me at [facility] for recently diagnosed metastatic adenocarcinoma of lung primary with PD-L1 of 100%, for which she was started on single agent Keytruda on 08/20/2021. The patient had called [facility] on 08/22/2021 with complaints of worsening fatigue, for which we recommended she present to the Emergency Room. While in the ER, CT chest angiogram was obtained as she was noted to be slightly hypoxic, which revealed small segmental and subsegmental pulmonary emboli of the left upper lobe, mildly decreased size of right upper lobe malignant mass, slightly decreased metastatic thoracic adenopathy, patchy multilobar bilateral ground-glass and consolidative opacities suggestive of infectious/inflammatory pneumonitis such as viral pneumonia and progressively worsening srac-gz-kolsadvy inhwu-av-jtgrcehg T11 compression deformity with 2 mm retropulsion. She was subsequently started on therapeutic Lovenox. Brain MRI obtained on 08/22/2021 revealed decrease in size and improvement in surrounding edema involving the left intracranial metastatic foci with no new metastatic lesions identified. The patient seemed to be improving up until about 2-3 days ago when she was noted to have increasing oxygen demand for which chest x-ray was performed on 08/25/2021, which revealed slight progression of interstitial thickening and patchy bilateral opacities favoring an infectious process. Chest x-ray obtained on 08/26/2021 and 08/27/2021 also revealed progression of interstitial thickening and bilateral patchy opacities. Since then, she has had increasing oxygen demand and is currently on 60 liters per minute high-flow nasal cannula. During my evaluation of her today, she endorses generalized weakness as well as shortness of breath, but otherwise denies any other complaints. She is currently on antibiotics for possible hospital-acquired/community-acquired pneumonia and also remains on therapeutic Lovenox. PAST MEDICAL HISTORY: 1. Metastatic lung cancer. 2. Osteoarthritis. 3. Brain metastasis, status post SRS. PAST SURGICAL HISTORY: 1. Right knee arthroplasty. 2. Tonsillectomy and adenoidectomy. 3. Right rotator cuff repair. MEDICATIONS PRIOR TO ADMISSION: 1. Dexamethasone 4 mg p.o. t.i.d. 2. Protonix 40 mg p.o. b.i.d. 3. Ativan 0.5 mg p.o. p.r.n. 4. Oxycodone 5 mg p.o. q.4 hours p.r.n. ALLERGIES: 1. SULFA ANTIBIOTICS. 2. GABAPENTIN. SOCIAL HISTORY: Quit smoking more than 25 years ago. Denies alcohol or illicit drug use. FAMILY HISTORY: Noncontributory. REVIEW OF SYSTEMS: CONSTITUTIONAL: Denies weight loss, fever, or night sweats. CARDIOVASCULAR: Denies chest pain, palpitations, or dizziness. RESPIRATORY: Endorses shortness of breath. Denies hemoptysis or cough. GASTROINTESTINAL: Denies abdominal pain, nausea, vomiting, diarrhea or hematemesis. GENITOURINARY: Negative. NEUROLOGIC: Positive for blurry vision and generalized weakness. LYMPHATICS AND HEMATOLOGIC: Negative for abnormal bleeding or adenopathy. PHYSICAL EXAMINATION: VITAL SIGNS: Blood pressure 111/64, heart rate 103, respiratory rate 20, temperature 36.8, oxygen saturation 96% on high-flow nasal cannula with a flow rate of 60 liters per minute, FiO2 ratio of 80%. EYES: Eyes were without conjunctival erythema or icterus. ENT: Negative for masses. RESPIRATORY: Decreased breath sounds bilaterally. CARDIOVASCULAR: Tachycardic without significant murmur, gallops, or rubs. GASTROINTESTINAL: Abdomen was soft with normal bowel sounds. IMAGING STUDIES: Chest CTA on 08/22/2021, impression: 1. Small segmental and subsegmental pulmonary emboli of the left upper lobe. 2. Mildly decreased size of right upper lobe malignant mass, now measuring up to 6.5 cm compatible with positive treatment response. 3. Slightly decreased size of metastatic thoracic lymphadenopathy. 4. Patchy multilobar bilateral ground glass/consolidative opacities suggestive of an infectious or inflammatory pneumonitis such as viral pneumonia. 5. Progressively worsening syyr-ms-dqhqbwnt spqrk-nb-xcsmtwkj T11 compression deformity with 2 mm retropulsion. Brain MRI on 08/22/2021, impression: 1. Decrease in size and improvement in surrounding edema involving the left intracranial metastatic foci. No new metastatic lesions identified. 2. No acute hemorrhage. Chest x-ray on 08/25/2021, impression: 1. Slight progression of interstitial thickening and patchy bilateral opacities, which favors infectious process. Pulmonary edema appears similar, although is considered less likely. 2. Right lobe mass. IMPRESSION: 1. Metastatic lung adenocarcinoma. 2. Secondary brain metastasis. 3. Infectious pneumonitis. 4. Increased oxygen demand secondary to pulmonary emboli and possibly pneumonia versus pulmonary edema. Ирина is a very pleasant female known to me at [facility] with metastatic lung adenocarcinoma with high PD-L1 expression for which she was recently started on single agent modality with pembrolizumab about a week ago. She presented with worsening weakness and was found to be mildly hypoxic on admission with CT imaging revealing small subsegmental PEs, for which she was started on therapeutic dose Lovenox. Oncology is seeing the patient because of increasing oxygen demand. Would recommend repeating CT chest angiogram to evaluate for progression of pulmonary emboli versus pneumonia versus pulmonary edema. Agree with covering with broad-spectrum antibiotics for possible pneumonia. Would recommend watching her over the next 24-48 hours and if respiratory status worsens, may have to consider other options including supportive care transition at that time. Would expect symptoms to improve with antibiotics and diuretics. PLAN: 1. Recommend repeating CT chest angiogram to rule out progression of PE versus pneumonia versus pulmonary edema. 2. Agree with broad-spectrum antibiotics, diuretics and oxygen supplementation. 3. If respiratory status worsens, may have to discuss with family regarding continuing active treatment for lung cancer versus switching to a more supportive care approach. Thank you for this consult. Oncology will continue following the patient while in the hospital. Please feel free to call if you have any further questions. Job ID: [id number] LEXIE
--- NOTE | 2021-08-28 06:54 | Hospitalist Progress Note ---
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 Acute Hypoxemia in the setting of CAP vs Hospital Acquired Pneumonia - With worsening oxygenation, increased work of breathing, and bloody sputum - CXR with concern for infiltrates vs interstitial fluid in the bases -- Repeat 08/26 notable for progression of interstitial thicken and patchy bilateral opacities, 08/27 with similar findings - Procalcitonin elevated at 0.84 up from 0.41 since admission -- downtrended to 0.63 on 08/26 - MRSA nares negative - Concerning for both CAP vs Hospital acquired pneumonia based on timeline of symptoms in addition to initial chest CT - Continue IV Zosyn in addition to PO Azithromycin (last dose of azithro 08/28) - Repeat Lasix 40mg IV today - Now requiring High flow nasal cannula, which is being titrated prn -- continue BiPAP HS to help with respiratory fatigue - 08/27 repeat CTA with interval resolution of previously noted PE, extensive emphysematous and scarring changes, increased groundglass opacities, pulmonary hypertension, redemonstration of right upper lobe mass and mediastinal/cervical lymphadenopathy - Pulmonology consult: -Symptoms likely combination of 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 -Continue with broad-spectrum antibiotics. Urine Legionella antigen ordered. Follow sputum cultures. Mycoplasma antibodies ordered. -Patient is a poor candidate for bronchoscopy at this time given her hypoxia and risk for further respiratory failure with bronchoscopy -Wean oxygen to maintain sats of 92 to 94%. Pulmonary emboli in the setting of malignancy - Lovenox 90 mg daily (1.5 mg/kg), switched from BID dosing - Chest CTA 08/22/21 showed small segmental and subsegmental PEs of left upper lobe of lung - PESI score 133, class V, very high risk (10-25% 30-day mortality risk) - Fibrinolytic therapy not indicated, as patient was hemodynamically stable with no signs of RV dysfunction - Repeat chest CTA 08/27 as above and resolution of PE on CTA as well as Doppler negative for DVT - Due to hemoptysis, possible left upper lobe bleeding, and studies as mentioned, we will hold her anticoagulation at this time Tachycardia, likely secondary to PE - patient has been consistently tachycardic in the low 100s since admission - Continue Metoprolol Tartrate 25mg BID -- can consider transitioning to MTP succinate 25mg daily - Suspect improvement as well with treatment of pneumonia Lumbar back pain - per patient's daughter, Ирина has had lower back pain - midline TTP in lumbar region - lumbar spine XR 08/24/21 shows degenerative changes but no acute fractures - receiving Tylenol and oxycodone PRN for cancer-related pain Weakness - Head CT and brain MRI showed no acute pathology, some decrease in size of known metastases and no new metastases - PT recommends return to home with 24h care T11 compression deformity, subacute to chronic - observed on CTA 08/22/21 and lumbar spine XR on 08/24/21 - no pain or tenderness in the thoracic spine - has had previous bisphosphonate treatment - potential candidate for denosumab, defer to PCP Cerebral edema, secondary to brain metastases - Improved on most recent MRI - Continue dexamethasone Malignant neoplasm of lung with metastatic disease to brain - S/p SBRT, completed 08/15/21 - started Keytruda on 08/20/21 - Dexamethasone DC'd -- switched to IV Solu-Medrol - Heme/Onc consulted: - Recommended repeat CTA -- results above - Agreeing w/ continued abx, diuretics, O2 supp. - If respiratory status worsens, may have to discuss with family regarding continuing active treatment for lung cancer versus switching to a more supportive care approach. - Continue Tylenol and Oxycodone as needed Code status: Full code Dispo: Med tele DVT Prophylaxis:On hold as above FEN/GI: regular diet (2) Weakness: (3) Malignant neoplasm of upper lobe, right bronchus or lung: (4) Secondary malignant neoplasm of brain: Admission and Anticipated Discharge Date Admission Date: August 22, 2021 Supervising Physician Co-Signing Physician Notes I personally examined the patient and verified all puckett points of history and exam, discussed case, and agree with decision making with Dr Barraza. Not feeling too short of breath today. Still very tired. Still no appetite. Did not eat much. Family present at bedside. Answered all questions to the best my ability and to their satisfaction. Vitals noted, in general she is fatigued but does not appear to be in distress. HEENT normocephalic atraumatic mucous membranes moist. Breathing unlabored no accessory muscle use good effort. Skin shows no rashes no pallor or icterus. Neuro without focal deficits. Progressive hypoxic respiratory failureappears to be predominantly due to pulmonary inflammatory processCT from yesterday showing worse inflammatory changespossibly secondary to Covid versus less likely Keytruda. Either way escalated steroids hopefully will be of benefitappreciate pulmonary input greatly. In terms of her malnutrition and poor p.o. intake, the last couple days I have been encouraging her to improve her p.o. intake, thus far she has not beenhopefully with family presents to hear the critical importance of maintaining nutrition, she will start to take in more. If not can consider appetite stimulant. Otherwise as above Subjective No acute events overnight. Seen at bedside this morning. Patient reports feeling essentially the same specifically, very weak and tired. She denies feeling significantly short of breath but has developed a wet cough. No fever, chills, nausea, vomiting, abdominal pain, chest pain, palpitations, numbness, tingling, headache, dizziness. Per problem team, patient was coughing up blood when they were in the room evaluating her. Review of Systems Review of Systems: per subjective Physical Exam Constitutional: + ill appearing and + frail appearing Respiratory: normal respiratory effort; no respiratory distress and no labored breathing Auscultation: + diminished lung sounds and + rales Cardiovascular: Rate/Rhythm: regular rhythm and + tachycardic Heart Sounds: normal S1 and normal S2; no murmur Extremities: + edema (trace) Gastrointestinal (Abdomen): normal bowel sounds, soft, nontender, no hepatosplenomegaly Psychiatric: A+Ox3, euthymic affect Results & Data Results & Data ([facility]) Vital Signs (Past 12 Hours) Vital Signs Temp Pulse Pulse Resp BP BP Pulse Ox 08/28/21 06:39 87 L 08/28/21 04:40 95 H 18 96 08/28/21 03:41 36.8 C 90 18 114/81 95 08/28/21 01:56 92 H 20 93 02/28/22 23:40 90 31 H 95 08/27/21 22:42 36.6 C 91 H 16 109/73 92 08/27/21 22:18 86 08/27/21 19:47 101 H 20 93 08/27/21 19:34 36.8 C 102 H 16 108/74 94 Resident Activity Tracking Resident Involvement: Resident Care Provided Care Provided: Adult Hospital Medicine
[2021-08-28] MEDS: PIPERACILLIN/TAZOBACTAM 3.375 GM in DEXTROSE 5% 100 ML IV SCH ×2 (08:11→16:34)
[2021-08-28] MEDS: METOPROLOL TARTRATE 25 MG TAB PO SCH ×2 (08:12→20:42)
[2021-08-28] MEDS: PANTOprazole 40 MG TAB PO SCH ×2 (08:12→20:42)
--- NOTE | 2021-08-28 08:27 | Pulmonary Consultation ---
Date of Consultation August 28, 2021 Assessment & Plan (1) Hypoxia: 81F w/ recent hx lung adenocarcinoma with brain mets (s/p completed SBRT, Keytruda 08/20/2021) who presented with fatigue, lower extremity weakness, found to have left upper lobe PE, now suffering from worsening hypoxia and increased work of breathing, now on HFNC. -Afebrile since admission; no febrile spikes since. -Procalcitonin elevated at 0.84 (0.41 on admission), now down trended (0.63). -MRSA nares swab negative -Etiology unclear at this time. Concern for pneumonitis secondary to recent Keytruda use (pneumonitis is a known common side effect) vs post COVID-19 fibrosis vs HAP. * IV Solu-Medrol 80 mg 3 times daily; discontinued Decadron * Waking, bedtime glucose checks * Azithromycin 500 mg p.o. x1 dose (3 total days) * Labs: Legionella antigen, mycoplasma IgG, IgM, LDH * Lowered FiO2 to 50%, O2 saturation at 92% (patient was saturating 95% with 60% FiO2)wean as tolerated (2) Malignant neoplasm of upper lobe, right bronchus or lung: (3) Abnormal CT scan, chest: (4) Pulmonary embolism on left: Supervising Physician Co-Signing Physician Notes Patient seen and examined with resident physician. Agree with assessment and plan aside for any additions/exceptions noted: 81-year-old female with a history of metastatic lung cancer status post chemoradiation and PD-L1 therapy. Presented earlier this month with COVID- 19. 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 We will increase her steroid therapy to IV Solu-Medrol 80 mg 3 times daily. She does have hemoptysis, but her hemoglobin is stable. Less likely diffuse alveolar hemorrhage. No renal failure or blood noted in the urinalysis. She is currently anticoagulated due to left upper lobe pulmonary embolism seen on CT chest imaging. Hemoptysis may be related to an evolving pulmonary infarct in the left upper lobe. Continue with broad-spectrum antibiotics. Urine Legionella antigen ordered. Follow sputum cultures. Mycoplasma antibodies ordered. LDH trending down, thus less likely to be PJP. Patient is a poor candidate for bronchoscopy at this time given her hypoxia and risk for further respiratory failure with bronchoscopy. Her overall prognosis is quite guarded. Recommend discussions with the patient with regards to her CODE STATUS and considering more conservative approach should she have worsening respiratory compromise such as avoiding intubation. Unfortunately, palliative care consult services are not available at this time. Wean oxygen to maintain sats of 92 to 94%. Thank you for the consult. Pulmonary team to follow along with you. History of Present Illness Attending Physician: Manfred Espinosa DO History of Present Illness Ирина is an 81 year old woman with a recent history of adenocarcinoma of the lungs with metastasis to the lymph nodes and brain who presented to the hospital after 2 days of worsening fatigue, LE weakness and SOB. She was found to be tachycardic and hypoxic on arrival secondary to a pulmonary embolus in the left upper lobe. She was initially stabilized on supplemental oxygen at 3 L via nasal cannula. She was also presumptively treated for pneumonia (Zosyn plus azithrom ycin for atypical coverage). Patient's hypoxia began to worsen approximately 2 days ago, eventually requiring high flow nasal cannula (up to 75% FiO2@30 L/min before consult). Today, she reports feeling short of breath with wheeze at rest starting 2 days ago. She also reports hemoptysis x2 days, most recently this a.m. She denies rudy red hemoptysis, fever, chills, headaches, or chest pain. Prior to her recent cancer diagnosis, she was living independently at home, and was driving as recently as May. She denies ever requiring home oxygen. History was negative for bird exposure or air conditioner unit ventilation. She is a former smoker (quit 30+ years ago). She denies taking any unlisted medications or supplements. She denies any prior history of malignancy. Allergies Allergy/AdvReac Type Severity Reaction Status Date / Time Sulfa (Sulfonamide Allergy Intermediate severe Verified 08/22/21 20:52 Antibiotics) acid reflux lasted for 2 months gabapentin Allergy Unknown unknown if Verified 08/22/21 20:52 gabapentin caused symptoms, see PMHx paralysis banana AdvReac Intermediate causes Verified 08/22/21 20:52 burping Home Medications Medication Instructions Recorded Confirmed Type lifitegrast 5 % eye drops in a 1 drp OPHTHALMIC (EYE) QAM 02/08/21 08/22/21 History dropperette (Xiidra) nutritional supplement-fiber oral 1 ea PO DAILY PRN ml 02/08/21 08/22/21 History liquid omega-3s 800 mg-dha 186.67 mg-epa 1 cap PO QAM cap 02/08/21 08/22/21 History 560 mg-fish-vit D3 8.33 mcg capsule (De3 Dry Eye [employer] Benefits) Zinc 1 tsp PO 2XWK 07/03/21 08/22/21 History acetaminophen 500 mg tablet 1,000 mg PO BID 07/03/21 08/22/21 History albuterol sulfate 90 mcg/actuation 2 puff INHALATION Q6H PRN 07/03/21 08/22/21 History aerosol inhaler naproxen sodium 220 mg tablet 220 mg PO BID PRN 07/03/21 08/22/21 History (Aleve) nutritional supplement-fiber oral 1 ea PO QAM 07/03/21 08/22/21 History liquid psyllium husk 0.4 gram capsule 0.4 g PO QAM 07/03/21 08/22/21 History (Metamucil) cholecalciferol (vitamin D3) 10 10 mcg PO DAILY 07/20/21 08/22/21 History mcg/mL (400 unit/mL) oral drops lorazepam 0.5 mg tablet (Ativan) 0.5 mg PO DAILY PRN 07/20/21 08/22/21 History oxycodone 5 mg capsule 5 mg PO Q4H PRN 07/20/21 08/22/21 History rivaroxaban 10 mg tablet (Xarelto) 10 mg PO DAILY 07/20/21 08/22/21 History vitamin B complex (B 1 tab PO DAILY 07/20/21 08/22/21 History Complex-Vitamin B12) pantoprazole 40 mg tablet,delayed 40 mg PO BID #60 tab 08/06/21 08/22/21 Rx release (Protonix) dexamethasone 4 mg tablet 4 mg PO .COMPLEX #60 tab 08/08/21 08/22/21 Rx Patient History Medical History (Updated 08/28/21 @ 10:11 by Tien Guzman MD) Abnormal chest CT Abnormal CT scan, chest Asthma inhaler prn Cerebral edema Closed olecranon fracture Diverticulitis Ex-smoker Hypercalcemia LAD (lymphadenopathy), mediastinal Left foot pain Low back pain Lung mass Malignant neoplasm of upper lobe, right bronchus or lung Mass in chest RUL mass with lymphadenopathy concerning for metastatic disease per CT report 07/02/2021. PET scan 07/04/2021 completed, results pending. Osteoarthritis Osteopenia Pain of right lower extremity Paralysis acute onset 06/08/2021-right upper and lower extremity weakness, significant urinary incontinence and gait instability. Had started gabapentin at 3 daily tablets 06/07/2021 titrated to 9 daily tablets over 7-10 days. Per pt and daughter, suspected to be side effect from gabapentin by prescribing provider and medication tapered. Pt denies imaging. She reports persistent symptoms beyond gabapentin d/c with gait instability contributing to fall. Sacroiliac joint pain Scoliosis Seborrheic keratosis Secondary malignant neoplasm of brain Surgical History History of arthroscopy of right knee History of bilateral cataract extraction History of bilateral tubal ligation History of breast biopsy all cysts all benign History of dilatation and curettage History of repair of right rotator cuff History of tonsillectomy and adenoidectomy History of wisdom tooth extraction Hx of colonoscopy Surgical history of tubal ligation Family History Other No family history of adverse response to anesthesia Social History Smoking Status: Former smoker Number of Years Since Quit: 25; Second Hand Exposure: Yes; Hx Alcohol Use: No Hx Substance Use: No Preferred Language: Bolivian Communication Ability: Effective Hearing Ability: Normal Manager Process Required: No Beliefs That Will Affect Care: None Current Living Situation: Alone Current Living Situation Comment: daughter has been staying with patient to assist current occupational status: retired current occupation: Peds Nurse Feels Safe at Home: Yes during the past year weight has: remained stable Physical Activity Frequency: Does not Exercise Assistive Devices: Oxygen - at Night, Oxygen - Continuous and Walker Review of Systems Review of Systems: All systems reviewed & are unremarkable except as noted in HPI & below Physical Exam Physical Exam: General: Patient is ill-appearing; appears fatigued and inattentive at times. In no acute distress. HEENT: Non-erythematous oropharynx; no lymphadenopathy; normal dentition. CV: Regular rate and rhythm. Normal S1 and S2. No murmurs gallops or rubs. No pedal edema. Pulmonary: Bibasilar, right-sided mid lung crackles heard on auscultation. No rhonchi or wheezes. Abdomen: Soft, nondistended abdomen. No bruits heard on auscultation. No tenderness to deep palpation. No guarding or rebound. Psych: Alert and oriented x3. Congruent mood and affect. Results & Data Results & Data ([facility]) Vital Signs (Past 12 Hours) Vital Signs Temp Pulse Pulse Resp BP Pulse Ox 08/28/21 07:59 95 H 08/28/21 07:32 36.6 C 97 H 16 114/73 93 08/28/21 07:26 95 H 20 95 08/28/21 06:39 87 L 08/28/21 04:40 95 H 18 96 08/28/21 03:41 36.8 C 90 18 114/81 95 08/28/21 01:56 92 H 20 93 08/27/21 23:40 90 31 H 95 08/27/21 22:42 36.6 C 91 H 16 109/73 92 08/27/21 22:18 86 Resident Activity Tracking Resident Involvement: Resident Care Provided Care Provided: Adult Hospital Medicine
[2021-08-28] MEDS ORDERED: AZITHROMYCIN 250 MG TAB PO ONE (09:00)
[2021-08-28] MEDS: methylPREDNISolone 80 MG in SYRINGE 0 ML IV SCH ×3 (09:18→20:42)
--- NOTE | 2021-08-28 09:19 | Billing Data ---
Date of Service August 28, 2021 Coding Level of Care Code 81557 Initial Inpt Care Lvl 3
[2021-08-28] MEDS ORDERED: FUROSEMIDE 40 MG/4 ML VIAL IV ONE (11:01)
--- NOTE | 2021-08-28 12:14 | Ultrasound Report ---
BILATERAL LOWER EXTREMITY VENOUS DOPPLER HISTORY: History of pulmonary embolus. Assess for DVT. Lung cancer. COMPARISON STUDY: None. FINDINGS: There is normal compressibility, flow, and augmentation within the bilateral lower extremit y deep venous systems. IMPRESSION: No DVT within the right or left lower extremity. ACT 112: Negative or not required by law. Electronically signed by: Ted Kearns M.D. 08/28/2021 12:12 PM
--- NOTE | 2021-08-28 16:00 | Progress Notes ---
DATE OF NOTE: 08/28/2021. BRIEF ONCOLOGY NOTE: The patient seems to be doing a little bit better from a respiratory standpoint with less FIO2 requirement. Recently started on Solu-Medrol for possible immunotherapy related vs Covid related pneumonitis by Pulmonology. She was also noted to have hemoptysis thought to possibly be related to pulmonary infarct. I had an extensive discussion with patient's daughter over the phone, explained to them that suspicion for immunotherapy related pneumonitis is low, especially since symptoms started about a day after getting Keytruda and she was also on high dose steroids at that time. I suspect that pulmonary symptoms are more likely due to pneumonitis from recent COVID-19 pneumonia verus pneumonia. Since most recent CTA did not show any evidence of PE, would also recommend ultrasound lower extremities to rule out DVT and if this is negative, can consider holding or decreasing to prophylactic dose anticoagulation until hemoptysis improves. Thank you for taking care of this very pleasant patient. Please feel free to call if you have any further questions. Job ID: [id number] [facility]ERR[facility]olfo
[2021-08-28] MEDS ORDERED: GLUCAGON FOR INJ 1 MG VIAL SQ PRN (16:31)
[2021-08-28] MEDS ORDERED: CARBOHYDRATES FOR HYPOGLYCEMIA PO PRN (16:31)
[2021-08-28] MEDS ORDERED: GLUCOSE 40% GEL 15 GM TUBE PO PRN (16:31)
[2021-08-28] MEDS ORDERED: DEXTROSE 50% 50 ML SYRINGE IV PRN (16:31)
[2021-08-28] MEDS ORDERED: GLUCOSE 10 TABS/TUBE PO PRN (16:31)
--- NOTE | 2021-08-28 17:51 | Billing Data ---
Date of Service August 28, 2021 Coding Level of Care Code 88995 Subseq Hosp Care Lvl 3
[2021-08-28] MEDS: INSULIN ASPART PER UNIT SC SCH (20:41)
[2021-08-29] MEDS ORDERED: PHARMACY GLYCEMIC MGMT CONSULT PRN (00:27)
[2021-08-29] MEDS: INSULIN ASPART PER UNIT SC SCH ×6 (01:05→21:28)
[2021-08-29] MEDS: PIPERACILLIN/TAZOBACTAM 3.375 GM in DEXTROSE 5% 100 ML IV SCH ×3 (01:07→16:24)
--- NOTE | 2021-08-29 07:26 | Pulmonology Progress Note ---
Date of Service August 29, 2021 Assessment & Plan (1) Hypoxia: Plan: 81F w/ recent hx lung adenocarcinoma with brain mets (s/p completed SBRT, Keytruda 08/20/2021) who presented with fatigue, lower extremity weakness, found to have left upper lobe PE, now suffering from worsening hypoxia and increased work of breathing, now on HFNC. -Afebrile since admission; no febrile spikes since. -Procalcitonin elevated at 0.84 (0.41 on admission), now down trended (0.63). -MRSA nares swab negative -Etiology unclear at this time. Concern for pneumonitis secondary to recent Keytruda use (pneumonitis is a known common side effect) vs post COVID-19 fibrosis vs HAP. Concern for Keytruda pneumonitis diminished after discussion with oncologist (such pneumonitis tend to occur approximately 6 weeks post treatment, on average). Likely post COVID-19 pneumonitis in the setting of PD1 inhibitor use for her malignancy -Attempt to wean down high flow nasal cannula oxygen appears to have failedpatient is now back on 60% FiO2 at 30 L/min with an O2 saturation of 87%. -Patient completed azithromycin course (08/30) 08/28/2021. * IV Solu-Medrol 80 mg 3 times daily * Waking, bedtime glucose checks * Labs: Legionella antigen, mycoplasma IgG, IgM, LDH still pending * Continue HFNC at 60% FiO2 (30 L/min). Continue to monitor oxygen saturation. * Goals of care discussion pertaining to her worsening oxygenation status with daughter. Patient is currently full code. (2) Pulmonary embolism on left: (3) Abnormal CT scan, chest: Admission and Anticipated Discharge Date Admission Date: August 22, 2021 Supervising Physician Co-Signing Physician Notes Patient seen and examined with resident physician. Agree with assessment and plan aside for any additions/exceptions noted: 81-year-old female with a history of metastatic lung cancer status post PD-L1 therapy. I had a discussion with the patient's oncologist yesterday and currently it is felt less likely that her pneumonitis is related to PD-L1 therapy given how recent her therapy was initiated. I suspect that the pneumonitis we are seeing is multifactorial related to her recent COVID-19 illness and also possibly related to immunotherapy. Lymphangitic carcinomatosis is difficult to rule out. Unfortunately, the patient remains a high risk from a bronchoscopy perspective in terms of needing intubation and mechanical ventilation to proceed with bronchoscopy safely. There is a risk that she may have difficulty weaning off of the ventilator. The patient is not willing to take this risk at this time and defers bronch. Bronchoscopy would be utilized to further evaluate for atypical infectious etiologies such as fungal disease. We have ordered for Legionella urine antigen and mycoplasma antibodies to be completed. I will also send for a 1,3 beta glucan to evaluate for invasive fungal disease. Continue with high-dose IV Solu-Medrol with the understanding that this may unfortunately minimize the response of her cancer treatment with PD-L1 therapy and also predispose her to opportunistic infections. Continue broad-spectrum antibiotics. We will continue to follow her clinically. Unfortunately, palliative care consult not available at this time. I did discuss goals of care with the patient including intubation and ACLS procedures if she got worse. The primary team will discuss these things with her further. I also discussed the case with the patient's resident physician hospitalist service and the bedside nurse. Thank you for the consult. Pulmonary team to follow along with you. Subjective No acute events overnight. Denies feeling short of breath today. Cough unchanged in in frequency though she reports decreased expectorant production. Per nursing, no acute events overnight. Review of Systems Review of Systems: All systems reviewed & are unremarkable except as noted in HPI & below Physical Exam Physical Exam: General: Patient appears fatigued and lethargic. She is in no acute distress. HEENT: Non-erythematous oropharynx; no lymphadenopathy; normal dentition. CV: Regular rate and rhythm. Normal S1 and S2. No murmurs gallops or rubs. No pedal edema. Pulmonary: Bibasilar crackles, expiratory wheeze heard on auscultation. Abdomen: Soft, nondistended abdomen. No bruits heard on auscultation. No tenderness to deep palpation. No guarding or rebound. Results & Data Results & Data ([facility]) Vital Signs (Past 12 Hours) Vital Signs Temp Pulse Resp BP Pulse Ox 08/29/21 03:41 89 22 91 08/29/21 03:39 36.6 C 92 H 20 117/80 96 08/28/21 22:30 85 21 93 08/28/21 22:28 36.8 C 86 20 118/82 93 08/28/21 20:52 91 08/28/21 20:00 87 L Resident Activity Tracking Resident Involvement: Resident Care Provided Care Provided: Adult Hospital Medicine
--- NOTE | 2021-08-29 07:34 | Hospitalist Progress Note ---
Date of Service August 29, 2021 Assessment & Plan (1) Pulmonary emboli: Plan: 81 year old female with recently-diagnosed lung adenocarcinoma with metastasis to brain who recently completed SBRT of brain and started Keytruda on 08/20/21 who presents with a 2-day history of fatigue and weakness found to have left upper lobe pulmonary emboli on imaging. Acute Hypoxemia in the setting of CAP vs Hospital Acquired Pneumonia - With worsening oxygenation, increased work of breathing, and bloody sputum - CXR with concern for infiltrates vs interstitial fluid in the bases -- Repeat 08/26 notable for progression of interstitial thicken and patchy bilateral opacities, 08/27 with similar findings - Procalcitonin elevated at 0.84 up from 0.41 since admission -- downtrended to 0.63 on 08/26 - MRSA nares negative - Concerning for both CAP vs Hospital acquired pneumonia based on timeline of symptoms in addition to initial chest CT - Continue IV Zosyn in addition to PO Azithromycin (last dose of azithro 08/28) - Repeat Lasix 40mg IV today - Now requiring High flow nasal cannula, which is being titrated prn -- continue BiPAP HS to help with respiratory fatigue - 08/27 repeat CTA with interval resolution of previously noted PE, extensive emphysematous and scarring changes, increased groundglass opacities, pulmonary hypertension, redemonstration of right upper lobe mass and mediastinal/cervical lymphadenopathy - Pulmonology consult: -Symptoms likely combination of 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 -Continue with broad-spectrum antibiotics. Urine Legionella antigen ordered. Follow sputum cultures. Mycoplasma antibodies ordered. -Patient is a poor candidate for bronchoscopy at this time given her hypoxia and risk for further respiratory failure with bronchoscopy -Wean oxygen to maintain sats of 92 to 94%. Pulmonary emboli in the setting of malignancy - Lovenox 90 mg daily (1.5 mg/kg), switched from BID dosing - Chest CTA 08/22/21 showed small segmental and subsegmental PEs of left upper lobe of lung - PESI score 133, class V, very high risk (10-25% 30-day mortality risk) - Fibrinolytic therapy not indicated, as patient was hemodynamically stable with no signs of RV dysfunction - Repeat chest CTA 08/27 as above and resolution of PE on CTA as well as Doppler negative for DVT - Due to hemoptysis, possible left upper lobe bleeding, and studies as mentioned, we will hold her anticoagulation at this time Tachycardia, likely secondary to PE - resolved - patient has been consistently tachycardic in the low 100s since admission - Continue Metoprolol Tartrate 25mg BID -- can consider transitioning to MTP succinate 25mg daily - Suspect improvement as well with treatment of pneumonia Hyperglycemia - Likely secondary to steroids as above - Started on SSI - Continue to monitor BSG and adjust insulin accordingly Lumbar back pain - per patient's daughter, Ирина has had lower back pain - midline TTP in lumbar region - lumbar spine XR 08/24/21 shows degenerative changes but no acute fractures - receiving Tylenol and oxycodone PRN for cancer-related pain Weakness - Head CT and brain MRI showed no acute pathology, some decrease in size of known metastases and no new metastases - PT recommends return to home with 24h care - Encouraging oral nutrition to address malnutrition - Dietary consult T11 compression deformity, subacute to chronic - observed on CTA 08/22/21 and lumbar spine XR on 08/24/21 - no pain or tenderness in the thoracic spine - has had previous bisphosphonate treatment - potential candidate for denosumab, defer to PCP Cerebral edema, secondary to brain metastases - Improved on most recent MRI - Continue dexamethasone Malignant neoplasm of lung with metastatic disease to brain - S/p SBRT, completed 08/15/21 - started Keytruda on 08/20/21 - Dexamethasone DC'd -- switched to IV Solu-Medrol - Heme/Onc consulted: - Recommended repeat CTA -- results above - Agreeing w/ continued abx, diuretics, O2 supp. - If respiratory status worsens, may have to discuss with family regarding continuing active treatment for lung cancer versus switching to a more supportive care approach. - Continue Tylenol and Oxycodone as needed Code status: Full code -- Plan to undergo discussion with patient and family regarding code status and goals of care should patient deteriorate Dispo: Med tele DVT Prophylaxis:On hold as above FEN/GI: regular diet (2) Weakness: (3) Malignant neoplasm of upper lobe, right bronchus or lung: (4) Secondary malignant neoplasm of brain: Admission and Anticipated Discharge Date Admission Date: August 22, 2021 Supervising Physician Co-Signing Physician Notes I personally examined the patient and verified all puckett points of history and exam, discussed case, and agree with decision making with Dr Barraza. breathing about the same. ate better with family support. Vitals noted, in general she is fatigued but does not appear to be in distress. HEENT normocephalic atraumatic mucous membranes moist. Breathing unlabored no accessory muscle use good effort. Skin shows no rashes no pallor or icterus. Neuro without focal deficits. Progressive hypoxic respiratory failureappears to be predominantly due to pulmonary inflammatory processprobably secondary to Covid versus less likely Keytruda. continue escalated steroids. PO intake improving. Dr Barraza, family had been discussing all week, Dr Guzman discussed earlier today --> she would like to be DNR Otherwise as above Subjective Seen at bedside this AM. Breathing status continues to be guarded. She does not feel short of breath, mostly reports fatigue and weakness. She did mention having more of an appetite today and was excited to have food brought in by her son. Review of Systems Review of Systems: All systems reviewed & are unremarkable except as noted in Subjective Physical Exam Constitutional: + ill appearing and + frail appearing Respiratory: normal respiratory effort; no respiratory distress and no labored breathing Auscultation: + diminished lung sounds and + rales Cardiovascular: Rate/Rhythm: regular rhythm and + tachycardic Heart Sounds: normal S1 and normal S2; no murmur Extremities: + edema (trace) Gastrointestinal (Abdomen): normal bowel sounds, soft, nontender, no hepatosplenomegaly Psychiatric: A+Ox3, euthymic affect Results & Data Results & Data ([facility]) Vital Signs (Past 12 Hours) Vital Signs Temp Pulse Resp BP Pulse Ox 08/29/21 07:23 89 22 88 L 08/29/21 03:41 89 22 91 08/29/21 03:39 36.6 C 92 H 20 117/80 96 08/28/21 22:30 85 21 93 08/28/21 22:28 36.8 C 86 20 118/82 93 08/28/21 20:52 91 08/28/21 20:00 87 L Resident Activity Tracking Resident Involvement: Resident Care Provided Care Provided: Adult [facility] Medicine
[2021-08-29 07:43] LABS: Basophils # (auto) 0.03 K/uL (0-0.2); Basophils % (auto) 0.4 %; Hematocrit (blood only) 35.4 % (37-47); Hemoglobin 12.1 g/dL (12.0-16.0); Immature Granulocytes # (auto) 0.37 K/uL (0.00-0.02); Immature Granulocytes % (auto) 4.4 %; Lymphocytes # (auto) 1.21 K/uL (1.2-3.4); Lymphocytes % (auto) 14.3 %; Mean Corpuscular Hemoglobin 32.1 pg (25-34); Mean Corpuscular Hgb Conc 34.2 g/dL (32-36); Mean Corpuscular Volume 93.9 fL (80-100); Mean Platelet Volume 11.1 fL (7.4-10.4); Monocytes # (auto) 0.24 K/uL (0.11-0.59); Monocytes % (auto) 2.8 %; Neutrophils # (auto) 6.63 K/uL (1.4-6.5); Neutrophils % (auto) 78.1 %; Platelet Count 131 K/uL (130-400); RDW Coefficient of Variation 14.9 % (11.5-14.5); RDW Standard Deviation 50.9 fL (36.4-46.3); Red Blood Count 3.77 M/uL (4.2-5.4); White Blood Count 8.48 K/uL (4.8-10.8)
[2021-08-29] MEDS ORDERED: INSULIN GLARGINE SOLOSTAR 100 UNITS/ML 3 ML PEN SC ONE (08:00)
[2021-08-29 08:22] LABS: BUN Creatinine Ratio 49.1 (10-20); Calcium 11.8 mg/dl (8.5-10.1); Creatinine Clr Calc Pharmacy 66.9 ml/min; Est GFR (African American) 100.5 ml/min; Est GFR (Non-African American) 86.7 ml/min
[2021-08-29] MEDS: methylPREDNISolone 80 MG in SYRINGE 0 ML IV SCH ×3 (08:26→20:22)
[2021-08-29] MEDS: PANTOprazole 40 MG TAB PO SCH ×2 (08:26→20:22)
[2021-08-29] MEDS: METOPROLOL TARTRATE 25 MG TAB PO SCH ×2 (08:26→20:23)
[2021-08-29] MEDS: ENOXAPARIN INJ 40 MG/0.4 ML SYR SQ SCH (08:28)
[2021-08-29] MEDS ORDERED: POTASSIUM CHLORIDE CRTAB 20 MEQ TABCR PO STA (08:36)
[2021-08-29] MEDS ORDERED: POTASSIUM CHLORIDE 20 MEQ/15 ML UDC PO STA (08:39)
--- NOTE | 2021-08-29 09:47 | Billing Data ---
Date of Service August 29, 2021 Coding Level of Care Code 37728 Subseq Obs Care Lvl 3
--- NOTE | 2021-08-29 14:05 | Pharmacy Report ---
Pharmacy Glycemic Short Note 2 - Date of Service August 29, 2021 - Glycemic Short BSG Results (Last 24 hours): 08/28/21 08/28/21 08/28/21 16:24 16:25 20:01 Glucose POC Glucose 398 H* 390 H* 391 H* 08/28/21 08/28/21 08/28/21 20:02 20:03 23:52 Glucose POC Glucose 427 H* 380 H* 277 H 08/29/21 08/29/21 08/29/21 03:36 07:32 07:32 Glucose 188 H POC Glucose 251 H 181 H 08/29/21 08/29/21 11:51 11:52 Glucose POC Glucose 309 H* 312 H* OUTPATIENT ANTIDIABETIC REGIMEN: * N/A * HbA1C pending (may not be accurate though as patient on dexamethasone at home) ASSESSMENT: * Ms Piña is an 81 y/o F admitted with weakness and possible pneumonia/pneumonitis. * Patient was start on Solu-Medrol 80 mg IV q8 hours yesterday and blood sugars were close to 400 mg/dL by the evening. * Fasting this morning was 181 mg/dL after 7 units of insulin overnight. * Full weight-based stress of 2 Lantus given this morning (20 units). Give additional 10 units tonight if BSGs remain above 200 mg/dL. * Novolog was initially started at weight-based stress of 3. Tighten further based upon lunch BSG of 309 mg/dL. No IV insulin to prevent overcorrection. PLAN FOR INPATIENT GLYCEMIC CONTROL: * Hold outpatient oral diabetes medications * Basal insulin * Lantus 20 units SQ x 1 then 10 units tonight if BSG > 200 mg/dL * Lantus 10 units BID (15 units if BSG > 160 mg/dL) starting 08/30/21 * Bolus insulin * NovoLog per scale ACHS or Q6hrs while NPO * Goal Range: Low 110 mg/dL - High 140 mg/dL * Correction Factor: 20 mg/dL/unit * Nutritional / Prandial insulin per carb ratio of 1 unit per 7 grams CHO consumed PLAN FOR DISCHARGE: * TBD- HbA1C ordered
--- NOTE | 2021-08-29 18:00 | Billing Data ---
Date of Service August 29, 2021 Coding Level of Care Code 98398 Subseq Hosp Care Lvl 3
[2021-08-29] MEDS: POTASSIUM CHLORIDE CRTAB 20 MEQ TABCR PO SCH (20:22)
[2021-08-29] MEDS ORDERED: INSULIN GLARGINE SOLOSTAR 100 UNITS/ML 3 ML PEN SC SCH (21:00)
[2021-08-30] MEDS: PIPERACILLIN/TAZOBACTAM 3.375 GM in DEXTROSE 5% 100 ML IV SCH ×4 (00:07→23:53)
[2021-08-30 06:37] LABS: Hematocrit (blood only) 37.6 % (37-47); Hemoglobin 12.5 g/dL (12.0-16.0); Mean Corpuscular Hemoglobin 31.6 pg (25-34); Mean Corpuscular Hgb Conc 33.2 g/dL (32-36); Mean Corpuscular Volume 94.9 fL (80-100); Nucleated RBC # (auto) 0.07 K/uL (0-0); Nucleated RBC % (auto) 0.7 %; Platelet Count 125 K/uL (130-400); RDW Standard Deviation 52.1 fL (36.4-46.3); Red Blood Count 3.96 M/uL (4.2-5.4); White Blood Count 9.75 K/uL (4.8-10.8)
[2021-08-30 07:09] LABS: Basophils # (auto) 0.03 K/uL (0-0.2); Basophils % (auto) 0.3 %; Immature Granulocytes % (auto) 5.1 %; Lymphocytes # (auto) 1.13 K/uL (1.2-3.4); Lymphocytes % (auto) 11.6 %; Monocytes # (auto) 0.38 K/uL (0.11-0.59); Monocytes % (auto) 3.9 %; Neutrophils # (auto) 7.71 K/uL (1.4-6.5); Neutrophils % (auto) 79.1 %
--- NOTE | 2021-08-30 07:09 | Hospitalist Progress Note ---
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 Acute Hypoxemia - likely secondary to pneumonitis due to recent COVID infection vs less-likely Keytruda treatment - With worsening oxygenation, increased work of breathing, and bloody sputum - CXR with concern for infiltrates vs interstitial fluid in the bases -- Repeat 08/26 notable for progression of interstitial thicken and patchy bilateral opacities, 08/27 with similar findings - Procalcitonin elevated at 0.84 up from 0.41 since admission -- downtrended to 0.63 on 08/26 - MRSA nares negative - Continue IV Zosyn for possibility of superimposed bacterial infection - Completed PO Azithromycin 08/28 - Now requiring High flow nasal cannula, which is being titrated prn -- continue BiPAP HS to help with respiratory fatigue - 08/27 repeat CTA with interval resolution of previously noted PE, extensive emphysematous and scarring changes, increased groundglass opacities, pulmonary hypertension, redemonstration of right upper lobe mass and mediastinal/cervical lymphadenopathy - Pulmonology consult: * IV Solu-Medrol 80 mg 3 times daily * Continue broad-spectrum antibiotics * Waking, bedtime glucose checks * Labs: Legionella antigen, mycoplasma IgG, IgM, LDH still pending * Continue HFNC at 60% FiO2 (30 L/min). Continue to monitor oxygen saturation. * 1,3 beta glucan to evaluate for invasive fungal disease * Bronchoscopy would be utilized to further evaluate for atypical infectious etiologies such as fungal disease -- defer at this time due to pt preference/high risk Pulmonary emboli in the setting of malignancy - Lovenox 90 mg daily (1.5 mg/kg), switched from BID dosing - Chest CTA 08/22/21 showed small segmental and subsegmental PEs of left upper lobe of lung - PESI score 133, class V, very high risk (10-25% 30-day mortality risk) - Fibrinolytic therapy not indicated, as patient was hemodynamically stable with no signs of RV dysfunction - Repeat chest CTA 08/27 as above and resolution of PE on CTA as well as Doppler negative for DVT - Due to hemoptysis, possible left upper lobe bleeding, and studies as mentioned, will limit Lovenox to prophylactic dosing at this time Tachycardia, likely secondary to PE - resolved - patient has been consistently tachycardic in the low 100s since admission - Continue Metoprolol Tartrate 25mg BID -- can consider transitioning to MTP succinate 25mg daily - Suspect improvement as well with treatment of pneumonia Hyperglycemia - Likely secondary to steroids as above - Started on SSI - Continue to monitor BSG and adjust insulin accordingly Lumbar back pain - per patient's daughter, Ирина has had lower back pain - midline TTP in lumbar region - lumbar spine XR 08/24/21 shows degenerative changes but no acute fractures - receiving Tylenol and oxycodone PRN for cancer-related pain Weakness - Head CT and brain MRI showed no acute pathology, some decrease in size of known metastases and no new metastases - PT recommends return to home with 24h care - Encouraging oral nutrition to address malnutrition - Dietary consult T11 compression deformity, subacute to chronic - observed on CTA 08/22/21 and lumbar spine XR on 08/24/21 - no pain or tenderness in the thoracic spine - has had previous bisphosphonate treatment - potential candidate for denosumab, defer to PCP Cerebral edema, secondary to brain metastases - Improved on most recent MRI - Continue dexamethasone Malignant neoplasm of lung with metastatic disease to brain - S/p SBRT, completed 08/15/21 - started Keytruda on 08/20/21 - Dexamethasone DC'd -- switched to IV Solu-Medrol - Heme/Onc consulted: - Recommended repeat CTA -- results above - Agreeing w/ continued abx, diuretics, O2 supp. - If respiratory status worsens, may have to discuss with family regarding continuing active treatment for lung cancer versus switching to a more supporti ve care approach. - Continue Tylenol and Oxycodone as needed Code status: DNR/DNI per discussion with patient and family Dispo: Med tele DVT Prophylaxis: Lovenox prophylactic dosing FEN/GI: regular diet (2) Weakness: (3) Malignant neoplasm of upper lobe, right bronchus or lung: (4) Secondary malignant neoplasm of brain: Admission and Anticipated Discharge Date Admission Date: August 22, 2021 Supervising Physician Co-Signing Physician Notes I personally examined the patient and verified all puckett points of history and exam, discussed case, and agree with decision making with Dr Barraza. breathing probably about the same to maybe slightly better. more bright. ate better. Vitals noted, in general she is fatigued but does not appear to be in distress. HEENT normocephalic atraumatic mucous membranes moist. Breathing unlabored no accessory muscle use good effort. Skin shows no rashes no pallor or icterus. Neuro without focal deficits. Progressive hypoxic respiratory failureappears to be predominantly due to pulmonary inflammatory processprobably secondary to Covid versus less likely Keytruda. continue escalated steroids. PO intake improving more today. cautiously continue current care Otherwise as above Subjective No acute events overnight. Her breathing has been stable, not feeling short of breath. She does mention that she has been coughing up a lot more sputum, but it does not have blood in it. Appetite is much improved and she was able to eat about double for breakfast that she had yesterday. Feeling in better spirits overall. No fever, chills, nausea, vomiting, abdominal pain, chest pain, palpitations, shortness of breath. Review of Systems Review of Systems: per subjective Physical Exam Constitutional: cooperative and comfortable; no acute distress Respiratory: normal respiratory effort and + cough; no respiratory distress and no labored breathing Auscultation: + diminished lung sounds and + rales Cardiovascular: Rate/Rhythm: regular rhythm and + tachycardic Heart Sounds: normal S1 and normal S2; no murmur Psychiatric: A+Ox3, euthymic affect Results & Data Results & Data ([facility]) Vital Signs (Past 12 Hours) Vital Signs Temp Pulse Pulse Resp BP BP Pulse Ox 08/30/21 03:15 78 20 129/83 92 08/30/21 00:20 73 08/29/21 22:30 37.0 C 87 21 133/92 94 08/29/21 21:00 78 20 93 Resident Activity Tracking Resident Involvement: Resident Care Provided Care Provided: Adult Hospital Medicine
[2021-08-30 07:21] LABS: BUN Creatinine Ratio 54.7 (10-20); Calcium 11.4 mg/dl (8.5-10.1); Creatinine Clr Calc Pharmacy 69.4 ml/min; Est GFR (African American) 101.8 ml/min; Est GFR (Non-African American) 87.8 ml/min; Magnesium 2.3 mg/dl (1.7-2.4); Potassium 3.8 mmol/L (3.5-5.1)
[2021-08-30 07:25] LABS: Estimated Average Glucose 183 mg/dl
[2021-08-30] MEDS ORDERED: POLYETHYLENE (MIRALAX) 17 GM PACK PO PRN (08:30)
[2021-08-30] MEDS: METOPROLOL TARTRATE 25 MG TAB PO SCH ×2 (09:22→20:39)
[2021-08-30] MEDS: methylPREDNISolone 80 MG in SYRINGE 0 ML IV SCH ×2 (09:22→16:08)
[2021-08-30] MEDS: ENOXAPARIN INJ 40 MG/0.4 ML SYR SQ SCH (09:23)
[2021-08-30] MEDS: PANTOprazole 40 MG TAB PO SCH ×3 (09:23→20:38)
[2021-08-30] MEDS: POTASSIUM CHLORIDE CRTAB 20 MEQ TABCR PO SCH (10:10)
[2021-08-30] MEDS: DOCUSATE SODIUM 100 MG CAP PO SCH ×2 (10:10→20:38)
--- NOTE | 2021-08-30 11:06 | XRay Report ---
XR chest 1V portable HISTORY: ongoing pneumonia and hypoxia COMPARISON: Chest 08/27/2021. FINDINGS: No pneumothorax. No pleural effusions. The cortex silhouette remains normal in size. This m ild diffuse interstitial thickening, unchanged. Patchy bibasilar densities persist. Right upper lobe mass is again noted. IMPRESSION: 1. No change in the patchy bibasilar airspace opacities and right upper lobe mass. 2. Chronic interstitial thickening persists. ACT 112: Negative or not required by law. Electronically signed by: Ted Kearns M.D. 08/30/2021 11:04 AM
[2021-08-30] MEDS: INSULIN ASPART PER UNIT SC SCH ×5 (11:41→23:59)
[2021-08-30] MEDS: INSULIN GLARGINE SOLOSTAR 100 UNITS/ML 3 ML PEN SC SCH ×2 (12:10→21:31)
--- NOTE | 2021-08-30 14:15 | Pulmonology Progress Note ---
Date of Service August 30, 2021 Assessment & Plan (1) Hypoxia: Plan: 81F w/ recent hx lung adenocarcinoma with brain mets (s/p completed SBRT, Keytruda 08/20/2021) who presented with fatigue, lower extremity weakness, found to have left upper lobe PE, now suffering from worsening hypoxia and increased work of breathing, now on HFNC. -Afebrile since admission; no febrile spikes since. -Procalcitonin elevated at 0.84 (0.41 on admission), now down trended (0.63). -MRSA nares swab negative -Etiology unclear at this time. Concern for pneumonitis secondary to recent Keytruda use (pneumonitis is a known common side effect) vs post COVID-19 fibrosis vs HAP. Concern for Keytruda pneumonitis diminished after discussion with oncologist (Keytruda pneumonitis typically occurs approximately 6 weeks post treatment on average). 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 -Improved O2 saturation (91% from 86-89% yesterday) on HFNC- FiO2 now 55% (from 60% yesterday) at 30 L/min. -Azithromycin course completed (08/30) 08/28/2021. -Had goals of care discussion had with patient and family yesterday- code status now changed to DNR/DNI in accordance with patient and her living will. * IV Solu-Medrol 80 mg 3 times daily w/ waking, bedtime glucose checks, sliding scale insulin * Labs: Legionella antigen, mycoplasma IgG, IgM, LDH still pending * HFNC at 55% FiO2 (30 L/min). Monitor O2 saturation, adjust FiO2 as indicated. (2) Abnormal CT scan, chest: (3) Pulmonary embolism on left: (4) Malignant neoplasm of upper lobe, right bronchus or lung: (5) Pneumonitis: Plan: Patient seen and examined with the resident physician. Agree with assessment and plan aside for any additions/exceptions noted: Pneumonitis likely a combination of factors including possible Keytruda related pneumonitis, aspiration pneumonitis and post COVID-19 pneumonitis. Labs including Legionella, mycoplasma pending. Oxygen requirements have improved dramatically and she is currently on low-flow oxygen requiring 6 L/min. We will decrease IV Solu-Medrol dosing to 40 mg twice daily and likely transition to p.o. prednisone over the next 1 to 2 days. Would recommend a taper over a 2 to 3-week course. Chest x-ray reviewed with continued evidence of increased interstitial markings. Would also recommend to keep her on the more euvolemic/dry side. 1, 3 beta D glucan pending, but may be falsely elevated given that she was on Zosyn. Bronchoscopy as noted before likely of little utility and may put her at risk for further respiratory failure. Unlikely to be PCP as her LDH was down trending. Continue anticoagulation given pulmonary embolism. She has advanced lung cancer and her overall prognosis is poor. [facility] I discussed the case with the patient, patient's son and daughter at bedside. Also discussed with resident service. All are in agreement with the diagnosis and treatment plan. Physical exam Constitutional: Elderly and frail appearing female in no apparent distress. Oxygen tubing in place. Eyes: Pupils are equal round and reactive to light. Conjunctivae are normal. Anicteric sclera. Ears nose, mouth and throat: No obvious facial deformities. Neck: Trachea is midline. Visual inspection is normal. Respiratory: Rales and crackles noted. Diminished lung sounds bilaterally. Cardiovascular: Regular rate and rhythm. No murmurs. No edema. Gastrointestinal: Normal bowel sounds, soft, nontender and nondistended. No hepatosplenomegaly noted. Musculoskeletal: Strength 3 out of 5 diffusely. Skin: No rashes, warm dry and intact. Neurologic: No obvious focal neurological deficits seen. Psychiatric: Alert and oriented x3 with a euthymic affect. Admission and Anticipated Discharge Date Admission Date: August 22, 2021 Subjective No acute events overnight. Patient's son is in the room with her. Patient reports less fatigue compared to yesterday. She has no subjective complaints. Continues to deny SOB; denies fever, chills, or hemoptysis. Review of Systems Review of Systems: All systems reviewed & are unremarkable except as noted in HPI & below Physical Exam Physical Exam: General: Patient appears less fatigued compared to yesterday. She is in no acute distress. HEENT: Non-erythematous oropharynx; no lymphadenopathy; normal dentition. CV: Regular rate and rhythm. Normal S1 and S2. No murmurs gallops or rubs. No pedal edema. Pulmonary: Basilar crackles (R>L), expiratory wheeze on auscultation. Abdomen: Soft, nondistended abdomen. No bruits heard on auscultation. No ten derness to deep palpation. No guarding or rebound. Results & Data Results & Data ([facility]) Vital Signs (Past 12 Hours) Vital Signs Temp Pulse Pulse Resp BP BP Pulse Ox 08/30/21 12:53 86 08/30/21 11:34 100 H 18 93 08/30/21 11:24 37.2 C 102 H 21 116/68 93 08/30/21 07:53 37.0 C 88 24 118/76 88 L 08/30/21 07:19 85 20 91 08/30/21 03:15 78 20 129/83 92 Resident Activity Tracking Resident Involvement: Resident Care Provided Care Provided: Adult Hospital Medicine
--- NOTE | 2021-08-30 17:30 | Billing Data ---
Date of Service August 30, 2021 Coding Level of Care Code 72618 Subseq Hosp Care Lvl 3
[2021-08-30 17:41] LABS: Mycoplasma pneumoniae Ab, IgG <=0.90 (<=0.90); Mycoplasma pneumoniae Ab, IgM 240 U/mL (<770)
--- NOTE | 2021-08-30 18:06 | Billing Data ---
Date of Service August 30, 2021 Coding Level of Care Code 14333 Subseq Hosp Care Lvl 3
[2021-08-30] MEDS: methylPREDNISolone 40 MG in SYRINGE 0 ML IV SCH (20:38)
[2021-08-31] MEDS: INSULIN ASPART PER UNIT SC SCH ×5 (04:14→21:46)
[2021-08-31 07:43] LABS: Hematocrit (blood only) 38.1 % (37-47); Hemoglobin 12.5 g/dL (12.0-16.0); Mean Corpuscular Hemoglobin 31.4 pg (25-34); Mean Corpuscular Hgb Conc 32.8 g/dL (32-36); Mean Corpuscular Volume 95.7 fL (80-100); Nucleated RBC # (auto) 0.09 K/uL (0-0); Nucleated RBC % (auto) 0.9 %; Platelet Count 124 K/uL (130-400); RDW Coefficient of Variation 14.8 % (11.5-14.5); RDW Standard Deviation 51.9 fL (36.4-46.3); Red Blood Count 3.98 M/uL (4.2-5.4)
--- NOTE | 2021-08-31 08:00 | Hospitalist Progress Note ---
Date of Service August 31, 2021 Assessment & Plan (1) Hypoxia: Plan: 81F w/ recent hx lung adenocarcinoma with brain mets (s/p completed SBRT, Keytruda 08/20/2021) who presented with fatigue, lower extremity weakness, found to have left upper lobe PE, now suffering from worsening hypoxia and increased work of breathing, improved to 6L NC from HFNC overnight. Hypoxia -Afebrile since admission; no febrile spikes since. -Procalcitonin downtrended, MRSA nares negative. -Etiology unclear at this time. Concern for pneumonitis secondary to recent Keytruda vs post COVID-19 fibrosis vs HAP. Concern for Keytruda pneumonitis diminished after discussion with oncologist (Keytruda pneumonitis typically occurs approximately 6 weeks post treatment on average). 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 -greatly improved oxygenation on 6L NC this morning -Azithromycin course completed (08/30) 08/28/2021. -Had goals of care discussion had with patient and family - code status now changed to DNR/DNI in accordance with patient and her living will. * IV Solu-Medrol 80 mg 3 times daily w/ waking, bedtime glucose checks, sliding scale insulin * Labs: Legionella antigen, mycoplasma IgG, IgM, LDH, fungitell still pending - appreciate ongoing input from Pulmonary team Pulmonary Embolus - found on CTA chest on admission, secondary to lung adenocarcinoma under treatment - PEs cleared with heparin treatment. discontinued during stay due to onset of hemoptysis. - continuing with prophylactic lovenox Asthma - hx of, will initiate BID duonebs - incentive spirometry DVT ppx: lovenox FEN/GI: regular diet Bowel regimen: activity ad jose guadalupe Code Status: DNR/DNI Dispo: improving, continue telemetry monitoring (2) Pulmonary embolism on left: (3) Malignant neoplasm of upper lobe, right bronchus or lung: (4) Secondary malignant neoplasm of brain: Admission and Anticipated Discharge Date Admission Date: August 22, 2021 Supervising Physician Co-Signing Physician Notes I personally examined the patient and verified all puckett points of history and exam, discussed case, and agree with decision making with Dr Barraza. down to 6L NC! still eating well. Vitals noted, in general she is fatigued but does not appear to be in distress. HEENT normocephalic atraumatic mucous membranes moist. Breathing unlabored no accessory muscle use good effort. faint wheeze L lung, more clear R. better air entry overlal. Skin shows no rashes no pallor or icterus. Neuro without focal deficits. Progressive hypoxic respiratory failureappears to be predominantly due to pulmonary inflammatory processprobably secondary to Covid versus less likely Keytruda. continue escalated steroids. O2 requirements improving!!! PO intake remains well. Otherwise as above Subjective 81 yo F admitted for acute hypoxia secondary to PEs found to have possible pneumonia vs. pneumonitis superimposed. Doing well this morning. states that her energy is about the same as the day prior, but has been able to eat the food her children bring her. Was able to eat ice cream, waffles, yogurt, boost yesterday. Appears to be in better spirits. No complaints of abdominal pain, N/V/D. continues to have decreased appetite but eating at the behest of children and care team. Review of Systems Review of Systems: All systems reviewed & are unremarkable except as noted in Subjective Physical Exam Physical Exam: Constitutional: elderly, in no apparent distress, sitting comfortably in bed. Eyes: EOMI, pupils equal and reactive bilaterally, no scleral icterus Cardiac: RRR, no murmurs, gallops or rubs. Normal S1, S2 Pulm: bibasilar crackles, end expiratory wheezing predominantly in right lung, satting 92 on 6LNC, no retractions, Abd: soft, nontender, nondistended, normal bowel sounds, no rebound or guarding Results & Data Results & Data ([facility]) Vital Signs (Past 12 Hours) Vital Signs Temp Pulse Pulse Resp BP Pulse Ox 08/31/21 07:29 36.6 C 71 20 129/80 92 08/31/21 03:30 36.4 C L 70 18 118/78 97 08/31/21 00:00 80 08/30/21 22:00 36.3 C L 77 18 123/84 97 Laboratory Results Laboratory Results WBC 9.90 K/uL (4.8-10.8) 08/31/21 06:56 RBC 3.98 M/uL (4.2-5.4) L 08/31/21 06:56 Hgb 12.5 g/dL (12.0-16.0) 08/31/21 06:56 Hct 38.1 % (37-47) 08/31/21 06:56 MCV 95.7 fL (80-100) 08/31/21 06:56 MCH 31.4 pg (25-34) 08/31/21 06:56 MCHC 32.8 g/dL (32-36) 08/31/21 06:56 RDW Std Deviation 51.9 fL (36.4-46.3) H 08/31/21 06:56 RDW Coeff of Aureliano 14.8 % (11.5-14.5) H 08/31/21 06:56 Plt Count 124 K/uL (130-400) L 08/31/21 06:56 MPV 11.0 fL (7.4-10.4) H 08/31/21 06:56 Immature Gran % (Auto) 5.8 % 08/31/21 06:56 Neut % (Auto) 77.0 % 08/31/21 06:56 Lymph % (Auto) 11.7 % 08/31/21 06:56 [place] % (Auto) 4.6 % 08/31/21 06:56 Eos % (Auto) 0.1 % 08/31/21 06:56 Baso % (Auto) 0.8 % 08/31/21 06:56 Neut # (Auto) 7.62 K/uL (1.4-6.5) H 08/31/21 06:56 Lymph # (Auto) 1.16 K/uL (1.2-3.4) L 08/31/21 06:56 [place] # (Auto) 0.46 K/uL (0.11-0.59) 08/31/21 06:56 Eos # (Auto) 0.01 K/uL (0-0.5) 08/31/21 06:56 Baso # (Auto) 0.08 K/uL (0-0.2) 08/31/21 06:56 Immature Gran # (Auto) 0.57 K/uL (0.00-0.02) H 08/31/21 06:56 Absolute Nucleated RBC 0.09 K/uL (0-0) H 08/31/21 06:56 Nucleated RBC % (auto) 0.9 % 08/31/21 06:56 ESR > 130 mm/hr (0-30) H 08/28/21 15:49 PT 11.3 Seconds (9.0-12.0) 08/22/21 18:50 INR 1.1 (0.9-1.1) 08/22/21 18:50 VBG pH 7.47 (7.36-7.41) H 08/27/21 19:02 VBG pCO2 38 mmHg (38-50) 08/27/21 19:02 VBG pO2 70 mmHg 08/27/21 19:02 VBG HCO3 27 mmol/L 08/27/21 19:02 VBG O2 Saturation 95.4 % 08/27/21 19:02 VBG Base Excess 3.2 mEq/L 08/27/21 19:02 Barometric Pressure 736.3 mm/Hg 08/27/21 19:02 Sodium 136 mmol/L (136-145) 08/31/21 06:56 Potassium 4.1 mmol/L (3.5-5.1) 08/31/21 06:56 Chloride 98 mmol/L (98-107) 08/31/21 06:56 Carbon Dioxide 34 mmol/L (21-32) H 08/31/21 06:56 Anion Gap 4 (3-11) 08/31/21 06:56 BUN 28 mg/dl (6-23) H 08/31/21 06:56 Creatinine 0.43 mg/dl (0.6-1.2) L 08/31/21 06:56 Est Cr Clr Drug Dosing 85.6 ml/min 08/31/21 06:56 Est GFR ( Amer) 109.0 ml/min 08/31/21 06:56 Est GFR (Non-Af Amer) 94.1 ml/min 08/31/21 06:56 BUN/Creatinine Ratio 65.1 (10-20) H 08/31/21 06:56 Glucose 85 mg/dl (70-99(Fasting)) 08/31/21 06:56 POC Glucose 85 mg/dl (70-99) 08/31/21 07:27 Estimat Average Glucose 183 mg/dl 08/30/21 06:12 Hemoglobin A1c 8.0 % (4.5-5.6) H 08/30/21 06:12 Calcium 11.3 mg/dl (8.5-10.1) H 08/31/21 06:56 Phosphorus 2.8 mg/dl (2.5-4.9) 08/22/21 18:50 Magnesium 2.5 mg/dl (1.7-2.4) H 08/31/21 06:56 Total Bilirubin 0.7 mg/dl (0.2-1.0) 08/27/21 06:52 Direct Bilirubin 0.1 mg/dl (0-0.2) 08/23/21 05:49 AST 25 U/L (13-39) 08/27/21 06:52 ALT 61 U/L (7-52) H 08/27/21 06:52 Alkaline Phosphatase 99 U/L (34-104) 08/27/21 06:52 Lactate Dehydrogenase 273 U/L (86-244) H 08/28/21 09:13 Total Creatine Kinase 74 U/L (26-192) 08/22/21 18:50 Troponin I 0.04 ng/ml (0-0.04) 08/22/21 18:50 C-Reactive Protein 39.03 mg/dl (0-0.5) H 08/28/21 15:49 Total Protein 6.3 gm/dl (6.0-8.3) 08/27/21 06:52 Albumin 2.9 gm/dl (3.4-5.0) L 08/27/21 06:52 Globulin 3.4 gm/dl (2.5-4.0) 08/27/21 06:52 Albumin/Globulin Ratio 0.9 (0.9-2) 08/27/21 06:52 Procalcitonin 0.63 ng/ml (0-0.5) H 08/26/21 07:58 TSH 0.409 uIu/ml (0.300-4.500) 08/22/21 18:50 Urine Color Yellow 08/22/21 22:10 Urine Appearance Clear (Clear) 08/22/21 22:10 Urine pH 7.0 (4.5-7.5) 08/22/21 22:10 Ur Specific [place] 1.038 (1.000-1.030) H 08/22/21 22:10 Urine Protein Negative (Negative) 08/22/21 22:10 Urine Glucose (UA) 1+ (Negative) H 08/22/21 22:10 Urine Ketones Negative (Negative) 08/22/21 22:10 Urine Blood Negative (Negative) 08/22/21 22:10 Urine Nitrite Negative (Negative) 08/22/21 22:10 Urine Bilirubin Negative (Negative) 08/22/21 22:10 Urine Urobilinogen Negative (Negative) 08/22/21 22:10 Ur Leukocyte Esterase Negative (Negative) 08/22/21 22:10 Nasal Screen MRSA (PCR) Negative (Negative) 08/25/21 12:35 Urine Legionella Ag SEE NOTE 08/28/21 18:50 Mycoplasma pneumon IgG <=0.90 (<=0.90) 08/28/21 09:13 Mycoplasma pneumon IgM 240 U/mL (<770) 08/28/21 09:13 SARS-CoV-2, RNA, NAAT NEGATIVE (NEGATIVE) 08/22/21 18:[address] 08/22/21 18:40 CT head/brain wo con CLINICAL HISTORY: 81 years-old Female with weakness, known lung mets. Acute weakness with reported intracranial metastatic disease TECHNIQUE: Multiple axial CT images of the head were obtained without contrast. A dose lowering technique was utilized adhering to the principles of ALARA. COMPARISON: Brain MRI 07/09/2021 FINDINGS: No acute intracranial hemorrhage, midline shift, hydrocephalus, territorial ischemia or abnormal extra-axial collection. 1.9 x 1.0 cm right frontal lobe c alcification is unchanged from comparison. [place]cent calcifications of the basal ganglia. Cerebral vascular calcifications. Age-related involutional changes. White matter hypodensities suggest chronic microvascular ischemic disease. Vasogenic edema of the left cerebral convexity redemonstrated. The previously described enhancing lesions seen on the prior brain MRI or not definitively seen. The calvarium is intact. Mild mucosal thickening of the ethmoid air cells. IMPRESSION: 1. No acute intracranial abnormality. 2. Vasogenic edema within the left cerebral convexity redemonstrated. The patient's known left cerebral hemisphere intracranial metastatic lesions described on the study from 07/09/2021 are not identified on this noncontrast study. 3. Right frontal lobe parenchymal calcification is unchanged. ACT 112: Negative or not required by law. The above report was generated using voice recognition software. It may contain grammatical, syntax or spelling errors. Electronically signed by: Hector Dailey M.D. 08/22/2021 8:20 PM Brain MRI 08/22/21 18:42 Brain MRI WITH AND WITHOUT CONTRAST HISTORY: weakness, known lung mets TECHNIQUE: Multiplanar multisequence MRI of the brain was performed both before and after the intravenous administration of contrast. COMPARISON STUDY: Brain MRI 07/09/2021. FINDINGS: No areas restricted diffusion to suggest acute infarction. The midline structures are intact. Right frontal lobe calcification is again noted. The ventricles and sulci demonstrate mild age-related involutional changes. The major vascular flow-voids at the skull base are well-maintained. Evidence for prior bilateral lens replacement. Paranasal sinuses and mastoid air cells are clear. Microvascular ischemic changes are again noted. Interval decrease in size within the left high convexity and left occipital metastatic foci. The vasogenic edema surrounding these lesions has also improved. A dominant lesion within the left high convexity measures 14 mm, previously measuring 17 mm. The left occipital lobe lesion measures 6 mm. No new intracranial lesions identified. Small amount of susceptibility artifact within the larger lesion may be due to trace intracranial hemorrhage. This remains unchanged. IMPRESSION: 1. Decrease in size and improvement in the surrounding edema involving the left intracranial metastatic foci. No new metastatic lesions identified. 2. No acute hemorrhage. ACT 112: Negative or not required by law. Electronically signed by: Ted Kearns M.D. 08/23/2021 7:36 AM Lumbar Spine X-Ray 08/24/21 14:47 LUMBAR SPINE 3 VIEWS HISTORY: Lumbar spinous process tenderness, hx of osteoporosis COMPARISON: Lumbar spine 06/06/2021. FINDINGS: There is no fracture. There is grade 1 retrolisthesis of L2 on L3 and L3 on L4, unchanged. Severe disc space narrowing at L1-L2 and L2-L3. Moderate disc space narrowing at L3-L4 and L5-S1. Moderate facet degenerative changes within the lower lumbar spine. Mild loss of height within the superior endplate of T11. No associated retropulsion. This is consistent with a subacute to chronic compression fracture. The sacrum is intact. Mild levoscoliosis, unchanged. IMPRESSION: 1. No acute fractures within the lumbar spine. 2. Degenerative changes as described above. 3. A subacute to chronic mild superior endplate compression fracture at T11. ACT 112: Negative or not required by law. Electronically signed by: Ted Kearns M.D. 08/24/2021 4:14 PM Chest CTA 08/27/21 16:06 CT angio chest PE protocol CLINICAL HISTORY: PE TECHNIQUE: Multidetector row helical CT of the chest was performed with angiographic protocol. Coronal and sagittal reformations were obtained. Coronal and sagittal MIPS were obtained from the axial data set and were submitted for review. Automated dose lowering techniques and/or adjustment according to patient size were utilized for this exam. Comparison: Comparison is made to CT chest 08/22/2021 FINDINGS: Lungs and pleura: Redemonstration of large right upper lobe mass. Extensive emphysematous and scarring changes are seen along with traction bronchiectasis. Extensive groundglass opacities have increased from prior. Heart and pericardium: Heart size is normal. No pericardial effusion. Vessels: The pulmonary trunk is enlarged measuring 37 mm. Interval resolution of previously noted pulmonary emboli in the left upper lobe. Mediastinum and oliverio: Multiple enlarged lymph nodes are seen including an aortopulmonary node measuring 12 mm and a right lower paratracheal node measuring 13 mm and a subcarinal node measuring 13 mm. Chest wall and lower neck: There is an 11 mm left cervical node. Abdomen: Hepatic steatosis is noted. Bones: Unremarkable. IMPRESSION: 1. Interval resolution of previously noted pulmonary embolism. Extensive emphysematous and scarring changes are again seen. Increased groundglass opacities compatible with worsening pneumonia. Given the rapidity of spread, lepidic spread of tumor is considered unlikely. 2. Pulmonary hypertension. 3. Redemonstration of right upper lobe mass and mediastinal and cervical lymphadenopathy. ACT 112: Negative or not required by law. Electronically signed by: Herb Jonas M.D. 08/27/2021 5:43 PM Venous Doppler Study 08/28/21 11:00 BILATERAL LOWER EXTREMITY VENOUS DOPPLER HISTORY: History of pulmonary embolus. Assess for DVT. Lung cancer. COMPARISON STUDY: None. FINDINGS: There is normal compressibility, flow, and augmentation within the bilateral lower extremity deep venous systems. IMPRESSION: No DVT within the right or left lower extremity. ACT 112: Negative or not required by law. Electronically signed by: Ted Kearns M.D. 08/28/2021 12:12 PM Chest X-Ray 08/30/21 10:18 XR chest 1V portable HISTORY: ongoing pneumonia and hypoxia COMPARISON: Chest 08/27/2021. FINDINGS: No pneumothorax. No pleural effusions. The cortex silhouette remains normal in size. This mild diffuse interstitial thickening, unchanged. Patchy bibasilar densities persist. Right upper lobe mass is again noted. IMPRESSION: 1. No change in the patchy bibasilar airspace opacities and right upper lobe mass. 2. Chronic interstitial thickening persists. ACT 112: Negative or not required by law. Electronically signed by: Ted Kearns M.D. 08/30/2021 11:04 AM Resident Activity Tracking Resident Involvement: Resident Care Provided Care Provided: Adult Hospital Medicine
[2021-08-31 08:10] LABS: BUN Creatinine Ratio 65.1 (10-20); Calcium 11.3 mg/dl (8.5-10.1); Creatinine Clr Calc Pharmacy 85.6 ml/min; Est GFR (Non-African American) 94.1 ml/min; Magnesium 2.5 mg/dl (1.7-2.4); Potassium 4.1 mmol/L (3.5-5.1)
[2021-08-31 08:11] LABS: Basophils # (auto) 0.08 K/uL (0-0.2); Basophils % (auto) 0.8 %; Eosinophils # (auto) 0.01 K/uL (0-0.5); Eosinophils % (auto) 0.1 %; Immature Granulocytes # (auto) 0.57 K/uL (0.00-0.02); Immature Granulocytes % (auto) 5.8 %; Lymphocytes # (auto) 1.16 K/uL (1.2-3.4); Lymphocytes % (auto) 11.7 %; Monocytes # (auto) 0.46 K/uL (0.11-0.59); Monocytes % (auto) 4.6 %; Neutrophils # (auto) 7.62 K/uL (1.4-6.5)
[2021-08-31] MEDS: DOCUSATE SODIUM 100 MG CAP PO SCH ×2 (08:56→21:45)
[2021-08-31] MEDS: PANTOprazole 40 MG TAB PO SCH ×2 (08:56→21:45)
[2021-08-31] MEDS: METOPROLOL TARTRATE 25 MG TAB PO SCH ×2 (08:57→21:45)
[2021-08-31] MEDS: methylPREDNISolone 40 MG in SYRINGE 0 ML IV SCH (08:58)
[2021-08-31] MEDS: INSULIN GLARGINE SOLOSTAR 100 UNITS/ML 3 ML PEN SC SCH ×2 (08:59→21:47)
[2021-08-31] MEDS: ENOXAPARIN INJ 40 MG/0.4 ML SYR SQ SCH (09:01)
--- NOTE | 2021-08-31 10:14 | Pharmacy Report ---
Pharmacy Glycemic Short Note 2 - Date of Service August 31, 2021 - Glycemic Short BSG Results (Last 24 hours): 08/30/21 08/30/21 08/30/21 11:19 16:12 20:21 Glucose POC Glucose 307 H* 218 H 223 H 08/30/21 08/31/21 08/31/21 23:51 03:50 06:56 Glucose 85 POC Glucose 161 H 195 H 08/31/21 07:27 Glucose POC Glucose 85 OUTPATIENT ANTIDIABETIC REGIMEN: * N/A * HbA1c: 8.0% (08/30/21) ASSESSMENT: 08/31/21: * Pt received 60 units of insulin yesterday, with all BSGs above goal. * Basal insulin: 30 units * Bolus insulin: 30 units * SoluMedrol was reduced from 80mg IV TID --> 40mg IV BID. Anticipate that insulin needs will decrease as steroids taper. * Lantus dosing reduced slightly today. Will loosen Novolog parameters when necessary. 08/29 * Ms Piña is an 81 y/o F admitted with weakness and possible pneumonia/pneumonitis. * Patient was start on Solu-Medrol 80 mg IV q8 hours yesterday and blood sugars were close to 400 mg/dL by the evening. * Fasting this morning was 181 mg/dL after 7 units of insulin overnight. * Full weight-based stress of 2 Lantus given this morning (20 units). Give additional 10 units tonight if BSGs remain above 200 mg/dL. * Novolog was initially started at weight-based stress of 3. Tighten further based upon lunch BSG of 309 mg/dL. No IV insulin to prevent overcorrection. PLAN FOR INPATIENT GLYCEMIC CONTROL: * Hold outpatient oral diabetes medications * Basal insulin * Lantus 10-15 units SQ BID, based on BSG * Reduce to 8-12 units SQ BID, based on BSG, beginning this evening * Bolus insulin * NovoLog per scale ACHS or Q6hrs while NPO * Goal Range: Low 110 mg/dL - High 140 mg/dL * Correction Factor: 30 mg/dL/unit * Nutritional / Prandial insulin per carb ratio of 1 unit per 9 grams CHO consumed
[2021-08-31] MEDS: ACETAMINOPHEN 325 MG TAB PO PRN (12:23)
[2021-08-31] MEDS: PIPERACILLIN/TAZOBACTAM 3.375 GM in DEXTROSE 5% 100 ML IV SCH ×2 (12:35→21:43)
--- NOTE | 2021-08-31 17:27 | Billing Data ---
Date of Service August 31, 2021 Coding Level of Care Code 72188 Subseq Hosp Care Lvl 3
--- NOTE | 2021-08-31 18:07 | Pulmonology Progress Note ---
Date of Service August 31, 2021 Assessment & Plan (1) Pneumonitis: Plan: Possibly related to recent COVID-19 illness and immunotherapy. Pneumonia remains possibility as well. Improving on steroid therapy. Poor candidate for bronchoscopy given comorbidities. Continue to wean oxygen as able. Wean steroids over the next 2 weeks. We will transition to oral steroids tomorrow. Patient and son at bedside agreeable to plan. 1, 3 beta D glucan pending to rule out invasive fungal infection. This may be falsely elevated given that she is on Zosyn. Doubtful of fungal pneumonia at this time given improvement of hypoxemia without antifungal treatment. (2) Abnormal CT scan, chest: Plan: Secondary to the above (3) Pulmonary embolism on left: Plan: Hemoptysis has resolved. Pulmonary embolism secondary to underlying malignancy. Continue anticoagulation. (4) Hypoxia: Plan: Multifactorial, secondary to the above. (5) Metastatic primary lung cancer: Plan: [facility]. Seen as an inpatient. Appreciate oncology input. She has brain metastases and progressive weakness. Consider palliative care consultation on Friday. Plan: Pulmonary will sign off at this time. Please call with questions. Thank you. Admission and Anticipated Discharge Date Admission Date: August 22, 2021 Subjective Patient seen and examined. Patient's son and grandson at bedside. She remains very weak and is essentially unable to get out of bed unless there is full assistance. Her oxygen requirements continue to improve and she is currently on 6 L of oxygen saturating in the low to mid 90s. She denies any subjective dyspnea at rest. Cough has improved. There is still some production to her cough, no hemoptysis. Review of Systems Review of Systems: Unobtainable due to endotracheal tube Physical Exam Physical Exam: Constitutional: Elderly and frail appearing female in no apparent distress. Eyes: Pupils are equal round and reactive to light. Conjunctivae are normal. Anicteric sclera. Ears nose, mouth and throat: Mallampati class []. Normal posterior oropharynx. Uvula is midline. Neck: Trachea is midline. Visual inspection is normal. Respiratory: Coarse crackles noted in the bilateral lower lobes. Wheezing is improved. Cardiovascular: Regular rate and rhythm. No murmurs. No edema. Gastrointestinal: Normal bowel sounds, soft, nontender and nondistended. No hepatosplenomegaly noted. Musculoskeletal: Severely diminished strength in all extremities. Moves all extremities Skin: No rashes, warm dry and intact. Neurologic: No obvious focal neurological deficits seen. Psychiatric: Alert and oriented x3 with a euthymic affect. Results & Data Results & Data ([facility]) Vital Signs (Past 12 Hours) Vital Signs Temp Pulse Pulse Resp BP Pulse Ox 08/31/21 16:00 84 08/31/21 15:29 36.4 C L 84 14 98/63 L 93 08/31/21 11:00 36.4 C L 96 H 18 111/74 93 08/31/21 07:29 36.6 C 71 20 129/80 92 PG Care Time/CCT Total # of Minutes Spent Total Time Spent with Patient: Total time spent is greater than 50% in coordination of care (as documented) at patient's floor/unit and/or counseling patient: Coding Level of Care Code 08577 Subseq Hosp Care Lvl 2 Diagnoses Pneumonitis J18.[address] scan, chest R93.89 Pulmonary embolism on left I26.99 Hypoxia R09.02 Metastatic primary lung cancer C34.90
[2021-08-31] MEDS: ALBUT/IPRATROP 3MG/0.5MG NEB 3 ML VIAL NEB SCH (19:06)
[2021-09-01] MEDS: PIPERACILLIN/TAZOBACTAM 3.375 GM in DEXTROSE 5% 100 ML IV SCH ×3 (05:05→21:22)
[2021-09-01 06:28] LABS: Hematocrit (blood only) 39.9 % (37-47); Hemoglobin 13.2 g/dL (12.0-16.0); Mean Corpuscular Hemoglobin 31.4 pg (25-34); Mean Corpuscular Hgb Conc 33.1 g/dL (32-36); Mean Corpuscular Volume 94.8 fL (80-100); Mean Platelet Volume 10.9 fL (7.4-10.4); Nucleated RBC # (auto) 0.31 K/uL (0-0); Nucleated RBC % (auto) 3.1 %; Platelet Count 130 K/uL (130-400); RDW Coefficient of Variation 14.9 % (11.5-14.5); Red Blood Count 4.21 M/uL (4.2-5.4)
[2021-09-01 06:50] LABS: Basophils # (auto) 0.12 K/uL (0-0.2); Basophils % (auto) 1.2 %; Eosinophils # (auto) 0.11 K/uL (0-0.5); Eosinophils % (auto) 1.1 %; Immature Granulocytes # (auto) 0.94 K/uL (0.00-0.02); Immature Granulocytes % (auto) 9.5 %; Lymphocytes # (auto) 0.86 K/uL (1.2-3.4); Lymphocytes % (auto) 8.7 %; Monocytes # (auto) 0.17 K/uL (0.11-0.59); Monocytes % (auto) 1.7 %; Neutrophils % (auto) 77.8 %; RBC Morphology Unremarkable
[2021-09-01 06:54] LABS: BUN Creatinine Ratio 65.7 (10-20); Calcium 11.1 mg/dl (8.5-10.1); Creatinine Clr Calc Pharmacy 105.2 ml/min; Est GFR (African American) 116.6 ml/min; Est GFR (Non-African American) 100.6 ml/min; Magnesium 2.3 mg/dl (1.7-2.4); Potassium 4.1 mmol/L (3.5-5.1)
[2021-09-01] MEDS: ALBUT/IPRATROP 3MG/0.5MG NEB 3 ML VIAL NEB SCH (07:13)
--- NOTE | 2021-09-01 08:10 | Hospitalist Progress Note ---
Date of Service September 01, 2021 Assessment & Plan (1) Hypoxia: Plan: 81F w/ recent hx lung adenocarcinoma with brain mets (s/p completed SBRT, Keytruda 08/20/2021) who presented with fatigue, lower extremity weakness, found to have left upper lobe PE, now suffering from worsening hypoxia and increased work of breathing, improved to 6L NC from HFNC overnight. Hypoxia -Afebrile since admission; no febrile spikes since. -Procalcitonin downtrended, MRSA nares negative. 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 -greatly improved oxygenation on 6L NC this morning -Azithromycin course completed (08/30) 08/28/2021. -Had goals of care discussion had with patient and family - code status now changed to DNR/DNI in accordance with patient and her living will. * IV Solu-Medrol downgraded to daily po prednisone * Labs: Legionella antigen, mycoplasma IgG, IgM, LDH, fungitell still pending - appreciate ongoing input from Pulmonary team - will complete total of 10 days of zosyn for HAP Pulmonary Embolus - found on CTA chest on admission, secondary to lung adenocarcinoma under treatment - PEs cleared with heparin treatment. discontinued during stay due to onset of hemoptysis. - continuing with prophylactic lovenox Asthma - hx of, prn duonebs - incentive spirometry Q1h DVT ppx: lovenox FEN/GI: regular diet Bowel regimen: miralax TID, docusate/senna Code Status: DNR/DNI Dispo: improving, continue telemetry monitoring (2) Pulmonary embolism on left: (3) Malignant neoplasm of upper lobe, right bronchus or lung: (4) Secondary malignant neoplasm of brain: Admission and Anticipated Discharge Date Admission Date: August 22, 2021 Supervising Physician Co-Signing Physician Notes I personally examined the patient and verified all puckett points of history and exam, discussed case, and agree with decision making with Dr Barraza. breathign still doing better a bit more fatigued and appetite less but no stomach pain, also has not had BM in a while Vitals noted, in general she is fatigued but does not appear to be in distress. HEENT normocephalic atraumatic mucous membranes moist. Breathing unlabored no accessory muscle use good effort.abd with mild epigastric ttp no guarding no rebound mildly distended. Neuro without focal deficits. Progressive hypoxic respiratory failureappears to be predominantly due to pulmonary inflammatory processprobably secondary to Covid versus less far l tr Wang. No on prednisone. Continue antibiotics, slowly wean steroids. Continue oxygen and supportive care. Poor appetitelow threshold to start appetite stimulant, but given that she examines like she may have some stress-induced gastritiswe will cover for this with twice daily PPI and twice daily H2 landon, and given that she has some constipation, will try to get her bowels moving. That said, if her p.o. intake does not improve by tomorrow, probably will start Marinol. Otherwise as above Subjective continues to be fatigued this morning. son and daughter at bedside, saying that she has been eating less than the previous days. denies any worsening breathing problems. no pain. Review of Systems Review of Systems: All systems reviewed & are unremarkable except as noted in Subjective Physical Exam Physical Exam: Constitutional: elderly, in no apparent distress, sitting comfortably in bed, fatigued appearing Eyes: EOMI, pupils equal and reactive bilaterally, no scleral icterus Cardiac: RRR, no murmurs, gallops or rubs. Normal S1, S2 Pulm: bibasilar crackles, no wheezes, no extra work of breathing Abd: soft, nontender, nondistended, normal bowel sounds, no rebound or guarding Results & Data Results & Data ([facility]) Vital Signs (Past 12 Hours) Vital Signs Temp Pulse Pulse Resp BP Pulse Ox 09/01/21 07:13 104 H 16 92 09/01/21 03:37 86 09/01/21 02:47 36.7 C 91 H 20 98/66 L 92 08/31/21 22:00 36.5 C 82 20 104/69 96 Laboratory Results Laboratory Results WBC 9.90 K/uL (4.8-10.8) 09/01/21 05:56 RBC 4.21 M/uL (4.2-5.4) 09/01/21 05:56 Hgb 13.2 g/dL (12.0-16.0) 09/01/21 05:56 Hct 39.9 % (37-47) 09/01/21 05:56 MCV 94.8 fL (80-100) 09/01/21 05:56 MCH 31.4 pg (25-34) 09/01/21 05:56 MCHC 33.1 g/dL (32-36) 09/01/21 05:56 RDW Std Deviation 52.0 fL (36.4-46.3) H 09/01/21 05:56 RDW Coeff of Aureliano 14.9 % (11.5-14.5) H 09/01/21 05:56 Plt Count 130 K/uL (130-400) 09/01/21 05:56 MPV 10.9 fL (7.4-10.4) H 09/01/21 05:56 Immature Gran % (Auto) 9.5 % 09/01/21 05:56 Neut % (Auto) 77.8 % 09/01/21 05:56 Lymph % (Auto) 8.7 % 09/01/21 05:56 [place] % (Auto) 1.7 % 09/01/21 05:56 Eos % (Auto) 1.1 % 09/01/21 05:56 Baso % (Auto) 1.2 % 09/01/21 05:56 Neut # (Auto) 7.70 K/uL (1.4-6.5) H 09/01/21 05:56 Lymph # (Auto) 0.86 K/uL (1.2-3.4) L 09/01/21 05:56 [place] # (Auto) 0.17 K/uL (0.11-0.59) 09/01/21 05:56 Eos # (Auto) 0.11 K/uL (0-0.5) 09/01/21 05:56 Baso # (Auto) 0.12 K/uL (0-0.2) 09/01/21 05:56 Immature Gran # (Auto) 0.94 K/uL (0.00-0.02) H 09/01/21 05:56 Absolute Nucleated RBC 0.31 K/uL (0-0) H 09/01/21 05:56 Nucleated RBC % (auto) 3.1 % 09/01/21 05:56 RBC Morphology Unremarkable 09/01/21 05:56 ESR > 130 mm/hr (0-30) H 08/28/21 15:49 PT 11.3 Seconds (9.0-12.0) 08/22/21 18:50 INR 1.1 (0.9-1.1) 08/22/21 18:50 VBG pH 7.50 (7.36-7.41) H 09/01/21 12:04 VBG pCO2 42 mmHg (38-50) 09/01/21 12:04 VBG pO2 40 mmHg 09/01/21 12:04 VBG HCO3 33 mmol/L 09/01/21 12:04 VBG O2 Saturation 76.5 % 09/01/21 12:04 VBG Base Excess 8.6 mEq/L 09/01/21 12:04 Barometric Pressure 740.3 mm/Hg 09/01/21 12:04 Sodium 137 mmol/L (136-145) 09/01/21 05:56 Potassium 4.1 mmol/L (3.5-5.1) 09/01/21 05:56 Chloride 99 mmol/L (98-107) 09/01/21 05:56 Carbon Dioxide 33 mmol/L (21-32) H 09/01/21 05:56 Anion Gap 5 (3-11) 09/01/21 05:56 BUN 23 mg/dl (6-23) 09/01/21 05:56 Creatinine 0.35 mg/dl (0.6-1.2) L 09/01/21 05:56 Est Cr Clr Drug Dosing 105.2 ml/min 09/01/21 05:56 Est GFR ( Amer) 116.6 ml/min 09/01/21 05:56 Est GFR (Non-Af Amer) 100.6 ml/min 09/01/21 05:56 BUN/Creatinine Ratio 65.7 (10-20) H 09/01/21 05:56 Glucose 77 mg/dl (70-99(Fasting)) 09/01/21 05:56 POC Glucose 128 mg/dl (70-99) H 09/01/21 11:25 Estimat Average Glucose 183 mg/dl 08/30/21 06:12 Hemoglobin A1c 8.0 % (4.5-5.6) H 08/30/21 06:12 Calcium 11.1 mg/dl (8.5-10.1) H 09/01/21 05:56 Phosphorus 2.8 mg/dl (2.5-4.9) 08/22/21 18:50 Magnesium 2.3 mg/dl (1.7-2.4) 09/01/21 05:56 Total Bilirubin 0.7 mg/dl (0.2-1.0) 08/27/21 06:52 Direct Bilirubin 0.1 mg/dl (0-0.2) 08/23/21 05:49 AST 25 U/L (13-39) 08/27/21 06:52 ALT 61 U/L (7-52) H 08/27/21 06:52 Alkaline Phosphatase 99 U/L (34-104) 08/27/21 06:52 Lactate Dehydrogenase 273 U/L (86-244) H 08/28/21 09:13 Total Creatine Kinase 74 U/L (26-192) 08/22/21 18:50 Troponin I 0.04 ng/ml (0-0.04) 08/22/21 18:50 C-Reactive Protein 39.03 mg/dl (0-0.5) H 08/28/21 15:49 Total Protein 6.3 gm/dl (6.0-8.3) 08/27/21 06:52 Albumin 2.9 gm/dl (3.4-5.0) L 08/27/21 06:52 Globulin 3.4 gm/dl (2.5-4.0) 08/27/21 06:52 Albumin/Globulin Ratio 0.9 (0.9-2) 08/27/21 06:52 Procalcitonin 0.63 ng/ml (0-0.5) H 08/26/21 07:58 TSH 0.409 uIu/ml (0.300-4.500) 08/22/21 18:50 Urine Color Yellow 08/22/21 22:10 Urine Appearance Clear (Clear) 08/22/21 22:10 Urine pH 7.0 (4.5-7.5) 08/22/21 22:10 Ur Specific Vaughn 1.038 (1.000-1.030) H 08/22/21 22:10 Urine Protein Negative (Negative) 08/22/21 22:10 Urine Glucose (UA) 1+ (Negative) H 08/22/21 22:10 Urine Ketones Negative (Negative) 08/22/21 22:10 Urine Blood Negative (Negative) 08/22/21 22:10 Urine Nitrite Negative (Negative) 08/22/21 22:10 Urine Bilirubin Negative (Negative) 08/22/21 22:10 Urine Urobilinogen Negative (Negative) 08/22/21 22:10 Ur Leukocyte Esterase Negative (Negative) 08/22/21 22:10 Nasal Screen MRSA (PCR) Negative (Negative) 08/25/21 12:35 Urine Legionella Ag SEE NOTE 08/28/21 18:50 Mycoplasma pneumon IgG <=0.90 (<=0.90) 08/28/21 09:13 Mycoplasma pneumon IgM 240 U/mL (<770) 08/28/21 09:13 SARS-CoV-2, RNA, NAAT NEGATIVE (NEGATIVE) 08/22/21 18:[address] 08/22/21 18:40 CT head/brain wo con CLINICAL HISTORY: 81 years-old Female with weakness, known lung mets. Acute weakness with reported intracranial metastatic disease TECHNIQUE: Multiple axial CT images of the head were obtained without contrast. A dose lowering technique was utilized adhering to the principles of ALARA. COMPARISON: Brain MRI 07/09/2021 FINDINGS: No acute intracranial hemorrhage, midline shift, hydrocephalus, territorial ischemia or abnormal extra-axial collection. 1.9 x 1.0 cm right frontal lobe calcification is unchanged from comparison. [place]cent calcifications of the basal ganglia. Cerebral vascular calcifications. Age-related involutional changes. White matter hypodensities suggest chronic microvascular ischemic disease. Vasogenic edema of the left cerebral convexity redemonstrated. The previously described enhancing lesions seen on the prior brain MRI or not definitively seen. The calvarium is intact. Mild mucosal thickening of the ethmoid air cells. IMPRESSION: 1. No acute intracranial abnormality. 2. Vasogenic edema within the left cerebral convexity redemonstrated. The patient's known left cerebral hemisphere intracranial metastatic lesions described on the study from 07/09/2021 are not identified on this noncontrast study. 3. Right frontal lobe parenchymal calcification is unchanged. ACT 112: Negative or not required by law. The above report was generated using voice recognition software. It may contain grammatical, syntax or spelling errors. Electronically signed by: Hector Dailey M.D. 08/22/2021 8:20 PM Brain MRI 08/22/21 18:42 Brain MRI WITH AND WITHOUT CONTRAST HISTORY: weakness, known lung mets TECHNIQUE: Multiplanar multisequence MRI of the brain was performed both before and after the intravenous administration of contrast. COMPARISON STUDY: Brain MRI 07/09/2021. FINDINGS: No areas restricted diffusion to suggest acute infarction. The midline structures are intact. Right frontal lobe calcification is again noted. The v entricles and sulci demonstrate mild age-related involutional changes. The major vascular flow-voids at the skull base are well-maintained. Evidence for prior bilateral lens replacement. Paranasal sinuses and mastoid air cells are clear. Microvascular ischemic changes are again noted. Interval decrease in size within the left high convexity and left occipital metastatic foci. The vasogenic edema surrounding these lesions has also improved. A dominant lesion within the left high convexity measures 14 mm, previously measuring 17 mm. The left occipital lobe lesion measures 6 mm. No new intracranial lesions identified. Small amount of susceptibility artifact within the larger lesion may be due to trace intracranial hemorrhage. This remains unchanged. IMPRESSION: 1. Decrease in size and improvement in the surrounding edema involving the left intracranial metastatic foci. No new metastatic lesions identified. 2. No acute hemorrhage. ACT 112: Negative or not required by law. Electronically signed by: Ted Kearns M.D. 08/23/2021 7:36 AM Lumbar Spine X-Ray 08/24/21 14:47 LUMBAR SPINE 3 VIEWS HISTORY: Lumbar spinous process tenderness, hx of osteoporosis COMPARISON: Lumbar spine 06/06/2021. FINDINGS: There is no fracture. There is grade 1 retrolisthesis of L2 on L3 and L3 on L4, unchanged. Severe disc space narrowing at L1-L2 and L2-L3. Moderate disc space narrowing at L3-L4 and L5-S1. Moderate facet degenerative changes within the lower lumbar spine. Mild loss of height within the superior endplate of T11. No associated retropulsion. This is consistent with a subacute to chronic compression fracture. The sacrum is intact. Mild levoscoliosis, unchanged. IMPRESSION: 1. No acute fractures within the lumbar spine. 2. Degenerative changes as described above. 3. A subacute to chronic mild superior endplate compression fracture at T11. ACT 112: Negative or not required by law. Electronically signed by: Ted Kearns M.D. 08/24/2021 4:14 PM Chest CTA 08/27/21 16:06 CT angio chest PE protocol CLINICAL HISTORY: PE TECHNIQUE: Multidetector row helical CT of the chest was performed with angiographic protocol. Coronal and sagittal reformations were obtained. Coronal and sagittal MIPS were obtained from the axial data set and were submitted for review. Automated dose lowering techniques and/or adjustment according to patient size were utilized for this exam. Comparison: Comparison is made to CT chest 08/22/2021 FINDINGS: Lungs and pleura: Redemonstration of large right upper lobe mass. Extensive emphysematous and scarring changes are seen along with traction bronchiectasis. Extensive groundglass opacities have increased from prior. Heart and pericardium: Heart size is normal. No pericardial effusion. Vessels: The pulmonary trunk is enlarged measuring 37 mm. Interval resolution of previously noted pulmonary emboli in the left upper lobe. Mediastinum and oliverio: Multiple enlarged lymph nodes are seen including an aortopulmonary node measuring 12 mm and a right lower paratracheal node measuring 13 mm and a subcarinal node measuring 13 mm. Chest wall and lower neck: There is an 11 mm left cervical node. Abdomen: Hepatic steatosis is noted. Bones: Unremarkable. IMPRESSION: 1. Interval resolution of previously noted pulmonary embolism. Extensive emphysematous and scarring changes are again seen. Increased groundglass opacities compatible with worsening pneumonia. Given the rapidity of spread, lepidic spread of tumor is considered unlikely. 2. Pulmonary hypertension. 3. Redemonstration of right upper lobe mass and mediastinal and cervical lymphadenopathy. ACT 112: Negative or not required by law. Electronically signed by: Herb Jonas M.D. 08/27/2021 5:43 PM Venous Doppler Study 08/28/21 11:00 BILATERAL LOWER EXTREMITY VENOUS DOPPLER HISTORY: History of pulmonary embolus. Assess for DVT. Lung cancer. COMPARISON STUDY: None. FINDINGS: There is normal compressibility, flow, and augmentation within the bilateral lower extremity deep venous systems. IMPRESSION: No DVT within the right or left lower extremity. ACT 112: Negative or not required by law. Electronically signed by: Ted Kearns M.D. 08/28/2021 12:12 PM Chest X-Ray 08/30/21 10:18 XR chest 1V portable HISTORY: ongoing pneumonia and hypoxia COMPARISON: Chest 08/27/2021. FINDINGS: No pneumothorax. No pleural effusions. The cortex silhouette remains normal in size. This mild diffuse interstitial thickening, unchanged. Patchy bibasilar densities persist. Right upper lobe mass is again noted. IMPRESSION: 1. No change in the patchy bibasilar airspace opacities and right upper lobe mass. 2. Chronic interstitial thickening persists. ACT 112: Negative or not required by law. Electronically signed by: Ted Kearns M.D. 08/30/2021 11:04 AM Resident Activity Tracking Resident Involvement: Resident Care Provided Care Provided: Adult Hospital Medicine
[2021-09-01] MEDS: predniSONE 20 MG TAB PO SCH (08:34)
[2021-09-01] MEDS: DOCUSATE SODIUM 100 MG CAP PO SCH (08:35)
[2021-09-01] MEDS: PANTOprazole 40 MG TAB PO SCH ×2 (08:35→21:08)
[2021-09-01] MEDS: METOPROLOL TARTRATE 25 MG TAB PO SCH ×2 (08:35→21:10)
[2021-09-01] MEDS: ENOXAPARIN INJ 40 MG/0.4 ML SYR SQ SCH (08:36)
[2021-09-01] MEDS: INSULIN ASPART PER UNIT SC SCH ×4 (08:37→21:04)
[2021-09-01] MEDS: INSULIN GLARGINE SOLOSTAR 100 UNITS/ML 3 ML PEN SC SCH (08:37)
--- NOTE | 2021-09-01 10:47 | Pharmacy Report ---
Pharmacy Glycemic Short Note 2 - Date of Service September 01, 2021 - Glycemic Short BSG Results (Last 24 hours): 08/31/21 08/31/21 08/31/21 10:56 16:08 20:11 Glucose POC Glucose 141 H 197 H 262 H 09/01/21 09/01/21 05:56 07:26 Glucose 77 POC Glucose 89 OUTPATIENT ANTIDIABETIC REGIMEN: * N/A * HbA1c: 8.0% (08/30/21) ASSESSMENT: 09/01/21 * Patient's BSGs yesterday were [phone] mg/dL. Patient received 45 units of insulin yesterday (22 units of basal and 23 units of bolus). * Fasting today is 89 mg/dL. * Patient transitioned from Solu-Medrol 40 mg IV BID to prednisone 40 mg daily today. * Will reduce basal by 30% since fasting's trending downwards. * Tighten Novolog since basal decreased but steroids will still be given. 08/31/21: * Pt received 60 units of insulin yesterday, with all BSGs above goal. * Basal insulin: 30 units * Bolus insulin: 30 units * SoluMedrol was reduced from 80mg IV TID --> 40mg IV BID. Anticipate that insulin needs will decrease as steroids taper. * Lantus dosing reduced slightly today. Will loosen Novolog parameters when necessary. 08/29 * Ms iPña is an 81 y/o F admitted with weakness and possible pneumonia/pneumonitis. * Patient was start on Solu-Medrol 80 mg IV q8 hours yesterday and blood sugars were close to 400 mg/dL by the evening. * Fasting this morning was 181 mg/dL after 7 units of insulin overnight. * Full weight-based stress of 2 Lantus given this morning (20 units). Give additional 10 units tonight if BSGs remain above 200 mg/dL. * Novolog was initially started at weight-based stress of 3. Tighten further based upon lunch BSG of 309 mg/dL. No IV insulin to prevent overcorrection. PLAN FOR INPATIENT GLYCEMIC CONTROL: * Hold outpatient oral diabetes medications * Basal insulin * Lantus 8 units SQ BID * Bolus insulin * NovoLog per scale ACHS or Q6hrs while NPO * Goal Range: Low 110 mg/dL - High 140 mg/dL * Correction Factor: 25 mg/dL/unit * Nutritional / Prandial insulin per carb ratio of 1 unit per 6 grams CHO consumed
[2021-09-01] MEDS: ACETAMINOPHEN 325 MG TAB PO PRN (12:12)
[2021-09-01 12:16] LABS: Base Excess VBG 8.6 mEq/L; Oxygen Saturation VBG 76.5 %; pH VBG 7.5 (7.36-7.41)
--- NOTE | 2021-09-01 13:38 | Progress Notes ---
DATE OF SERVICE: 09/01/2021. The patient seems to be doing a lot better. She is now requiring only 8 liters per minute high-flow nasal cannula. During my evaluation of her today, she was sitting up in bed and appeared more comfortable from a respiratory standpoint. I had an extensive discussion with the patient, her kids, her sister and granddaughter. I explained to them that I am very pleased with improvement since she was started on Solu-Medrol. They had questions regarding the possibility of improvement being due to treatment of immunotherapy related pneumonitis. Based on my experience with immunotherapy, most cases of immunotherapy related pneumonitis usually occur after second/third doses of treatment. She only received her first cycle of treatment with Keytruda on 08/21/2021 and was admitted on 08/22/2021 with shortness of breath. I explained to them that this is highly atypical for immunotherapy related pneumonitis. It could very well be due to COVID-19 pneumonia versus pulmonary infection and recently diagnosed PE. Since respiratory status seems to be improving on current treatment with Solu-Medrol and IV antibiotics, I agree with Pulmonology plan. Will consider restarting her single agent immunotherapy or switching to combination chemotherapy when she is fully recovered from a respiratory standpoint. The patient and her family were given the opportunity to ask questions, which they indicated were answered to their satisfaction. Oncology will continue following her while she is in the hospital. Please feel free to call if you have any further questions. Job ID: [id number] [facility]
[2021-09-01] MEDS ORDERED: ALBUT/IPRATROP 3MG/0.5MG NEB 3 ML VIAL NEB PRN (14:22)
[2021-09-01] MEDS: POLYETHYLENE (MIRALAX) 17 GM PACK PO SCH ×2 (16:15→21:08)
[2021-09-01] MEDS: DOCUSATE SODIUM/SENNA 50/8.6MG TAB PO SCH (16:16)
--- NOTE | 2021-09-01 17:21 | Billing Data ---
Date of Service September 01, 2021 Coding Level of Care Code 94892 Subseq Hosp Care Lvl 3
[2021-09-01 19:16] LABS: Fungitell (1-3)-B-D-Glucan >500 pg/mL
[2021-09-01] MEDS ORDERED: INSULIN GLARGINE SOLOSTAR 100 UNITS/ML 3 ML PEN SC SCH (21:00)
[2021-09-01] MEDS: FAMOTIDINE 20 MG TAB PO SCH (21:07)
[2021-09-02] MEDS: PIPERACILLIN/TAZOBACTAM 3.375 GM in DEXTROSE 5% 100 ML IV SCH ×3 (05:08→21:03)
[2021-09-02 07:18] LABS: Hematocrit (blood only) 40.5 % (37-47); Hemoglobin 13.6 g/dL (12.0-16.0); Mean Corpuscular Hemoglobin 31.7 pg (25-34); Mean Corpuscular Hgb Conc 33.6 g/dL (32-36); Mean Corpuscular Volume 94.4 fL (80-100); Mean Platelet Volume 10.8 fL (7.4-10.4); Platelet Count 125 K/uL (130-400); RDW Coefficient of Variation 15.1 % (11.5-14.5); RDW Standard Deviation 51.9 fL (36.4-46.3); Red Blood Count 4.29 M/uL (4.2-5.4); White Blood Count 9.58 K/uL (4.8-10.8)
[2021-09-02 07:45] LABS: Albumin Globulin Ratio 0.9 (0.9-2); Albumin Level 2.8 gm/dl (3.4-5.0); Bilirubin,Total 0.5 mg/dl (0.2-1.0); C Reactive Protein 11.48 mg/dl (0-0.5); Calcium 10.3 mg/dl (8.5-10.1); Creatinine Clr Calc Pharmacy 96.9 ml/min; Est GFR (African American) 113.5 ml/min; Globulin 3.2 gm/dl (2.5-4.0); Potassium 3.4 mmol/L (3.5-5.1)
[2021-09-02] MEDS: INSULIN ASPART PER UNIT SC SCH ×4 (08:11→21:00)
[2021-09-02] MEDS: predniSONE 20 MG TAB PO SCH (08:13)
[2021-09-02] MEDS: METOPROLOL TARTRATE 25 MG TAB PO SCH ×2 (08:13→20:13)
[2021-09-02] MEDS: DOCUSATE SODIUM/SENNA 50/8.6MG TAB PO SCH (08:13)
[2021-09-02] MEDS: PANTOprazole 40 MG TAB PO SCH ×2 (08:13→21:15)
[2021-09-02] MEDS: POLYETHYLENE (MIRALAX) 17 GM PACK PO SCH ×3 (08:14→21:15)
[2021-09-02] MEDS: ENOXAPARIN INJ 40 MG/0.4 ML SYR SQ SCH (08:14)
[2021-09-02] MEDS: FAMOTIDINE 20 MG TAB PO SCH ×2 (08:14→21:15)
[2021-09-02] MEDS: INSULIN GLARGINE SOLOSTAR 100 UNITS/ML 3 ML PEN SC SCH ×2 (08:14→21:00)
[2021-09-02] MEDS ORDERED: POTASSIUM CHLORIDE CRTAB 20 MEQ TABCR PO STA (08:33)
[2021-09-02] MEDS: INSULIN HUMAN NPH SC SCH (09:26)
--- NOTE | 2021-09-02 10:52 | Hospitalist Progress Note ---
Date of Service September 02, 2021 Assessment & Plan (1) Hypoxia: Plan: 81F w/ recent dx lung adenocarcinoma with brain mets (s/p completed SBRT, Keytruda 08/20/2021) who presented with fatigue, lower extremity weakness, found to have left upper lobe PE, now suffering from worsening hypoxia and increased work of breathing. Hypoxia -Procalcitonin, CRP downtrended, MRSA nares negative. 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 -stabilizing around 6-8L NC -Azithromycin course completed (08/30) 08/28/2021. -Had goals of care discussion had with patient and family - code status now changed to DNR/DNI in accordance with patient and her living will. * daily po prednisone * Legionella + mycoplasma negative. Fungitell positive, >500 Beta(1,3)D glucan - appreciate ongoing input from Pulmonary team - will complete total of 10 days of zosyn for HAP - repeat CXR for evaluation of possible fungal infection. - infectious disease consult placed for evaluation of fungal infection driving continuing oxygen requirement Pulmonary Embolus - found on CTA chest on admission, secondary to lung adenocarcinoma under treatment - PEs cleared with heparin treatment. discontinued during stay due to onset of hemoptysis. - continuing with prophylactic lovenox Asthma - hx of, prn duonebs - incentive spirometry Q1h Malnutrition/Weakness - continue support with high calorie boosts and prompting eating during meals to prevent weight loss and decompensation - will start 2.5 marinol QPM to help appetite support DVT ppx: lovenox FEN/GI: regular diet Bowel regimen: miralax TID, docusate/senna Code Status: DNR/DNI Dispo: stable, continue telemetry monitoring (2) Pulmonary embolism on left: (3) Malignant neoplasm of upper lobe, right bronchus or lung: (4) Secondary malignant neoplasm of brain: Admission and Anticipated Discharge Date Admission Date: August 22, 2021 Supervising Physician Co-Signing Physician Notes I personally examined the patient and verified all puckett points of history and exam, discussed case, and agree with decision making with Dr Elfego cruz BM did eat better. breathinga bout the same Vitals noted, in general she is fatigued but does not appear to be in distress. HEENT normocephalic atraumatic mucous membranes moist. Breathing unlabored no accessory muscle use good effort. Neuro without focal deficits. Progressive hypoxic respiratory failureappears to be predominantly due to pulmonary inflammatory processprobably secondary to Covid versus far less likely Keytruda. No on prednisone. Continue antibiotics, slowly wean steroids. Continue oxygen and supportive care. Poor appetitelow threshold to start appetite stimulant, with treatment for constipation and gastritis - appetite has improved again. continue to follow closely lung CA - keytruda/oncology f/u Otherwise as above Subjective feeling rather sad this morning with all of the frustrations of this hospitalization. Has had enough appetite this morning to eat hospital breakfast. also ate cheese and crackers, peanut butter at my encouragement. external urinary catheter showing concentrated urine output. no extra work of breathing but fatigued appearing. Periodically perks up with energy. Review of Systems Review of Systems: All systems reviewed & are unremarkable except as noted in Subjective Physical Exam Physical Exam: Constitutional: elderly, in no apparent distress, sitting comfortably in bed, fatigued appearing Eyes: EOMI, pupils equal and reactive bilaterally, no scleral icterus Cardiac: RRR, no murmurs, gallops or rubs. Normal S1, S2 Pulm: mild bibasilar crackles, no wheezes, no extra work of breathing Abd: soft, nontender, nondistended, normal bowel sounds, no rebound or guarding Results & Data Results & Data ([facility]) Vital Signs (Past 12 Hours) Vital Signs Temp Pulse Pulse Resp BP Pulse Ox 09/02/21 10:50 36.5 C 78 17 100/68 94 09/02/21 07:25 36.4 C L 90 16 117/78 97 09/02/21 02:47 36.6 C 60 20 110/65 95 09/02/21 02:01 91 H Resident Activity Tracking Resident Involvement: Resident Care Provided Care Provided: Adult Hospital Medicine
[2021-09-02] MEDS: oxyCODONE HCL IR 5 MG TAB (IMMEDIATE RELEASE) PO PRN (11:11)
[2021-09-02] MEDS ORDERED: SODIUM CHLORIDE 0.9% 1000ML 1,000 ML IV SCH (14:00)
--- NOTE | 2021-09-02 14:16 | Billing Data ---
Date of Service September 02, 2021 Coding Level of Care Code 94490 Subseq Hosp Care Lvl 3
--- NOTE | 2021-09-02 14:21 | Pharmacy Report ---
Pharmacy Glycemic Short Note 2 - Date of Service September 02, 2021 - Glycemic Short BSG Results (Last 24 hours): 09/01/21 09/01/21 09/02/21 16:27 20:20 06:52 Glucose 77 POC Glucose 288 H 233 H 09/02/21 09/02/21 07:21 11:01 Glucose POC Glucose 90 173 H OUTPATIENT ANTIDIABETIC REGIMEN: * N/A * HbA1c: 8.0% (08/30/21) ASSESSMENT: 09/02/21 * Patient's BSGs yesterday were [phone] mg/dL. * Patient received 26 units of insulin (16 units of basal and 10 units of bolus) * Fasting today is 90 mg/dL. * Decrease Lantus to 6 units BID as fasting continues to be below goal. * Add NPH 25 units daily since BSGs uncontrolled yesterday. * Continue Novolog. 09/01/21 * Patient's BSGs yesterday were [phone] mg/dL. Patient received 45 units of insulin yesterday (22 units of basal and 23 units of bolus). * Fasting today is 89 mg/dL. * Patient transitioned from Solu-Medrol 40 mg IV BID to prednisone 40 mg daily today. * Will reduce basal by 30% since fasting's trending downwards. * Tighten Novolog since basal decreased but steroids will still be given. 08/31/21: * Pt received 60 units of insulin yesterday, with all BSGs above goal. * Basal insulin: 30 units * Bolus insulin: 30 units * SoluMedrol was reduced from 80mg IV TID --> 40mg IV BID. Anticipate that insulin needs will decrease as steroids taper. * Lantus dosing reduced slightly today. Will loosen Novolog parameters when necessary. 08/29 * Ms Piña is an 81 y/o F admitted with weakness and possible pneumonia/pneumonitis. * Patient was start on Solu-Medrol 80 mg IV q8 hours yesterday and blood sugars were close to 400 mg/dL by the evening. * Fasting this morning was 181 mg/dL after 7 units of insulin overnight. * Full weight-based stress of 2 Lantus given this morning (20 units). Give additional 10 units tonight if BSGs remain above 200 mg/dL. * Novolog was initially started at weight-based stress of 3. Tighten further based upon lunch BSG of 309 mg/dL. No IV insulin to prevent overcorrection. PLAN FOR INPATIENT GLYCEMIC CONTROL: * Hold outpatient oral diabetes medications * Basal insulin * Lantus 6 units SQ BID * NPH 25 units daily * Bolus insulin * NovoLog per scale ACHS or Q6hrs while NPO * Goal Range: Low 110 mg/dL - High 140 mg/dL * Correction Factor: 25 mg/dL/unit * Nutritional / Prandial insulin per carb ratio of 1 unit per 6 grams CHO consumed
[2021-09-03] MEDS: PIPERACILLIN/TAZOBACTAM 3.375 GM in DEXTROSE 5% 100 ML IV SCH ×3 (04:49→21:23)
--- NOTE | 2021-09-03 05:19 | Hospitalist Progress Note ---
Date of Service September 03, 2021 Assessment & Plan (1) Hypoxia: Plan: 81F w/ recent dx lung adenocarcinoma with brain mets (s/p completed SBRT, Keytruda 08/20/2021) and COVID-19 PNA in 06/2021 who presented with fatigue, lower extremity weakness, found to have left upper lobe PE, now suffering from worsening hypoxia and increased work of breathing. 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 Continue HAP treatment. Less likely secondary to fungal PNA. ?? pneumocystis pna given elevated [id number] levels, ongoing immunosuppression w/ cancer treatment, and increasing o2 req, improvement w/ steroids --> sputum cx ordered --> consider chest ct given unclear dx of pna Pulmonary Embolus - found on CTA chest on admission, secondary to lung adenocarcinoma under treatment - PEs demonstrating radiologic resolution on repeat CTA s/p initial heparin treatment - heparin discontinued due to hemoptysis - continuing with prophylactic lovenox Asthma - History noted. Not in exacerbation. - DuoNebs PRN - incentive spirometry Q1h Malnutrition/Weakness - continue support with high calorie boosts and prompting eating during meals to prevent weight loss and decompensation - Continue Marinol DVT ppx: lovenox FEN/GI: regular diet Bowel regimen: miralax TID, docusate/senna Code Status: DNR/DNI Dispo: stable, continue telemetry monitoring (2) Pulmonary embolism on left: (3) Malignant neoplasm of upper lobe, right bronchus or lung: (4) Secondary malignant neoplasm of brain: Admission and Anticipated Discharge Date Admission Date: August 22, 2021 Results & Data Results & Data ([facility]) Vital Signs (Past 12 Hours) Vital Signs Temp Pulse Resp BP Pulse Ox 09/03/21 04:50 37.0 C 84 18 100/82 98 09/03/21 02:57 36.3 C L 71 23 120/74 99 09/03/21 02:55 20 93 09/03/21 02:44 36.6 C 93 H 18 99/66 L 86 L 09/02/21 23:24 36.8 C 86 16 100/65 91 09/02/21 18:59 36.8 C 85 17 99/62 L 92 Resident Activity Tracking Resident Involvement: Resident Care Provided Care Provided: Adult Hospital Medicine
--- NOTE | 2021-09-03 07:29 | Hospitalist Progress Note ---
Date of Service September 03, 2021 Assessment & Plan (1) Hypoxia: Plan: 81F w/ recent dx lung adenocarcinoma with brain mets (s/p completed SBRT, Keytruda 08/20/2021) and COVID-19 PNA in 06/2021 who presented with fatigue, lower extremity weakness, found to have left upper lobe PE, now suffering from worsening hypoxia and increased work of breathing. 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 Keytruda-induced pneumonitis also DDX but less likely given time course. Now concern of fungal HAP with positive beta-(1,3)-D-Glucan. Concern for pneumocystitis pneumonia given cancer and immunosuppression although might be unlikely given improvement of hypoxemia without antifungal. - Obtain sputum culture - Consider repeat chest CT - ID consult for further recommendations - Continue Zosyn for empiric treatment of HAP; to finish 10 day course on 09/05 - Cont daily po prednisone; start 2 wk taper - Persistently hypoxic throughout admission with increasing O2 requirements - Currently on 6L NC, oxymask needs over the weekend -Work-up as follows: -Ill with COVID19 PNA in 06/2021 -Procal downtrended to normal (09/02), afebrile, no white count -CRP downtrending, currently at 11.5 (09/02) from 39 (08/28) -MRSA nares, COVID19, legionella, and mycoplasma testing NEGATIVE -Fungitell positive (>500 beta-1,3D-glucan) -CTA (08/27): resolution of PE; RUL mass, extensive emphysema and scarring with bronchiectasis, extensive ground glass opacities -s/p azithromycin - completed 08/28 -Pulmonary signed-off: Suspect secondary to above. Continue HAP treatment. Less likely secondary to fungal PNA Pulmonary Embolus; resolved - found on CTA chest on admission, secondary to lung adenocarcinoma under treatment - PEs demonstrating radiologic resolution on repeat CTA s/p initial heparin treatment - heparin discontinued due to hemoptysis - continuing with prophylactic lovenox Asthma; chronic - History noted. Not in exacerbation. - DuoNebs PRN - incentive spirometry Q1h Malnutrition/Weakness - continue support with high calorie boosts and prompting eating during meals to prevent weight loss and decompensation - Continue Marinol DVT ppx: lovenox FEN/GI: regular diet Bowel regimen: miralax TID, docusate/senna Code Status: DNR/DNI Dispo: stable,home with 24 hours help when stable, continue telemetry monitoring Admission and Anticipated Discharge Date Admission Date: August 22, 2021 Supervising Physician Co-Signing Physician Notes Medical Student Supervision Note: I was personally present during medical student patient encounter and independently interviewed and examined the patient and verified the puckett history and physical, reviewed labs and image studies, discussed the case with Rossy Herman and agree with the findings and care plan. Acute hypoxic respiratory failure - acute worsening early in hospital course with slow improvement. continue O2 support. Needing lower O2 concentration - 4L Multifactorial etiology - treated with zosyn and azithromycin; steroids for pneumonitis - ? sec to post covid pneumonitis/?keytruda side effect. PE. Sputum culture pending Positive Beta D glucan - await ID input. Incentive spirometer Subjective This morning, Ms. Piña is feeling ok. Her luvwquza-xs-gdk and grand-daughter are visiting today. She says her difficulty breathing fluctuates, but feeling good this morning on 6L of nasal cannula. She is doing her best to eat as much as she can. She had half a yogurt, tea, and boost this morning. Patient significantly perks up and is able to eat more when family is around. This afternoon, Ms. Piña's family mentioned concern of a pressure ulcer on her bottom which is causing pain. Nursing has been placing protective padding on the area. Review of Systems Review of Systems: Per subjective. Physical Exam Physical Exam: Constitutional: elderly, in no apparent distress, fatigued appearing, weak Cardiac: RRR, no murmurs, gallops or rubs. Normal S1, S2 Pulm: mild bibasilar crackles, end expiratory wheezes, no increased work of breathing Abd: soft, nontender, nondistended, normal bowel sounds, no rebound or guarding Results & Data Results & Data ([facility]) Vital Signs (Past 12 Hours) Vital Signs Temp Pulse Resp BP Pulse Ox 09/03/21 07:07 36.6 C 91 H 18 109/74 91 09/03/21 04:50 37.0 C 84 18 100/82 98 09/03/21 02:57 36.3 C L 71 23 120/74 99 09/03/21 02:55 20 93 09/03/21 02:44 36.6 C 93 H 18 99/66 L 86 L 09/02/21 23:24 36.8 C 86 16 100/65 91
--- NOTE | 2021-09-03 07:44 | XRay Report ---
XR chest 1V portable CLINICAL HISTORY: hypoxia TECHNIQUE: Single frontal radiograph of the chest was obtained. Comparison: Comparison is made to chest one view 08/30/2021 FINDINGS: No lines and tubes are seen. The cardiomediastinal silhouette is normal. Redemonstration of right upp er lobe mass. Bibasilar opacities are seen, unchanged from prior exam. Stable chronic interstitial th ickening. No evidence of pleural effusion or pneumothorax. IMPRESSION: Right upper lobe mass and bibasilar opacities are stable. ACT 112: Negative or not required by law. Electronically signed by: Herb Jonas M.D. 09/03/2021 7:42 AM
[2021-09-03] MEDS: ENOXAPARIN INJ 40 MG/0.4 ML SYR SQ SCH (08:56)
[2021-09-03] MEDS: DOCUSATE SODIUM/SENNA 50/8.6MG TAB PO SCH (08:56)
[2021-09-03] MEDS: METOPROLOL TARTRATE 25 MG TAB PO SCH ×2 (08:57→21:25)
[2021-09-03] MEDS: PANTOprazole 40 MG TAB PO SCH ×2 (08:57→21:25)
[2021-09-03] MEDS: FAMOTIDINE 20 MG TAB PO SCH ×2 (08:57→21:25)
[2021-09-03] MEDS: POLYETHYLENE (MIRALAX) 17 GM PACK PO SCH ×3 (08:58→20:38)
[2021-09-03] MEDS: INSULIN ASPART PER UNIT SC SCH ×4 (09:13→22:00)
[2021-09-03] MEDS: INSULIN GLARGINE SOLOSTAR 100 UNITS/ML 3 ML PEN SC SCH ×2 (09:15→22:00)
[2021-09-03] MEDS: INSULIN HUMAN NPH SC SCH (09:16)
[2021-09-03] MEDS: predniSONE 20 MG TAB PO SCH (09:44)
[2021-09-03 10:38] LABS: Hematocrit (blood only) 35.9 % (37-47); Hemoglobin 12.2 g/dL (12.0-16.0); Mean Corpuscular Hemoglobin 31.8 pg (25-34); Mean Corpuscular Volume 93.5 fL (80-100); Nucleated RBC # (auto) 0.09 K/uL (0-0); Platelet Count 156 K/uL (130-400); RDW Coefficient of Variation 15.2 % (11.5-14.5); RDW Standard Deviation 52.1 fL (36.4-46.3); Red Blood Count 3.84 M/uL (4.2-5.4)
[2021-09-03 10:59] LABS: BUN Creatinine Ratio 39.2 (10-20); Calcium 10.9 mg/dl (8.5-10.1); Creatinine Clr Calc Pharmacy 72.2 ml/min; Est GFR (African American) 103.1 ml/min; Est GFR (Non-African American) 88.9 ml/min; Potassium 3.8 mmol/L (3.5-5.1)
[2021-09-03 11:32] LABS: Basophils # (auto) 0.05 K/uL (0-0.2); Basophils % (auto) 0.6 %; Eosinophils # (auto) 0.04 K/uL (0-0.5); Eosinophils % (auto) 0.5 %; Immature Granulocytes # (auto) 0.52 K/uL (0.00-0.02); Immature Granulocytes % (auto) 5.9 %; Lymphocytes # (auto) 0.95 K/uL (1.2-3.4); Lymphocytes % (auto) 10.8 %; Monocytes # (auto) 0.47 K/uL (0.11-0.59); Monocytes % (auto) 5.3 %; Neutrophils # (auto) 6.77 K/uL (1.4-6.5); Neutrophils % (auto) 76.9 %
[2021-09-03] MEDS: ACETAMINOPHEN 325 MG TAB PO PRN ×2 (12:35→23:37)
[2021-09-04] MEDS: PIPERACILLIN/TAZOBACTAM 3.375 GM in DEXTROSE 5% 100 ML IV SCH ×3 (05:46→21:35)
[2021-09-04 07:18] LABS: Hematocrit (blood only) 35.6 % (37-47); Hemoglobin 11.5 g/dL (12.0-16.0); Mean Corpuscular Hemoglobin 31.1 pg (25-34); Mean Corpuscular Hgb Conc 32.3 g/dL (32-36); Mean Corpuscular Volume 96.2 fL (80-100); Mean Platelet Volume 10.2 fL (7.4-10.4); Nucleated RBC # (auto) 0.12 K/uL (0-0); Nucleated RBC % (auto) 1.7 %; Platelet Count 141 K/uL (130-400); RDW Coefficient of Variation 15.2 % (11.5-14.5); White Blood Count 7.24 K/uL (4.8-10.8)
[2021-09-04 07:40] LABS: Albumin Level 2.7 gm/dl (3.4-5.0); BUN Creatinine Ratio 47.6 (10-20); Bilirubin,Total 0.4 mg/dl (0.2-1.0); Calcium 9.8 mg/dl (8.5-10.1); Creatinine Clr Calc Pharmacy 87.6 ml/min; Est GFR (African American) 109.9 ml/min; Est GFR (Non-African American) 94.8 ml/min; Globulin 2.6 gm/dl (2.5-4.0); Magnesium 2.5 mg/dl (1.7-2.4); Phosphorus 2.4 mg/dl (2.5-4.9); Potassium 3.6 mmol/L (3.5-5.1); Total Protein 5.3 gm/dl (6.0-8.3)
[2021-09-04 07:54] LABS: Lymphocytes % (manual) 9.6 %; Metamyelocytes # (manual) 0.31 K/uL (0-0); Metamyelocytes % (manual) 4.3 %; Monocytes # (manual) 0.12 K/uL (0.11-0.59); Monocytes % (manual) 1.7 %; Myelocytes # (manual) 0.31 K/uL (0-0); Myelocytes % (manual) 4.3 %; Neutrophils % (manual) 80.1 %
--- NOTE | 2021-09-04 08:51 | Hospitalist Progress Note ---
Date of Service September 04, 2021 Assessment & Plan (1) Hypoxia: Plan: 81F w/ recent dx lung adenocarcinoma with brain mets (s/p completed SBRT, Keytruda 08/20/2021) and COVID-19 PNA in 06/2021 who presented with fatigue, lower extremity weakness, found to have left upper lobe PE, now suffering from worsening hypoxia and increased work of breathing. Has been satting and breathing well on 3L of NC since 09/04 afternoon. 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 Keytruda-induced pneumonitis also DDX but less likely given time course. Concern of fungal HAP with positive beta-(1,3)-D-Glucan on 09/03. Concern for pneumocystitis pneumonia given cancer and immunosuppression although might be unlikely given improvement of hypoxemia without antifungal. - Sputum culture with mixed jad; will follow growth - Consider repeat chest CT - ID consult for further recommendations-- pending recs - Continue Zosyn for empiric treatment of HAP; to finish 10 day course on 09/05 - Cont daily po prednisone 40mg (taper?) - Fluctuating O2 needs- has been satting appropriately on 3L since 09/04 evening -Work-up as follows: -Ill with COVID19 PNA in 06/2021 -Procal downtrended to normal (09/02), afebrile, no white count -CRP downtrending, currently at 11.5 (09/02) from 39 (08/28) -MRSA nares, COVID19, legionella, and mycoplasma testing NEGATIVE -Fungitell positive (>500 beta-1,3D-glucan) -CTA (08/27): resolution of PE; RUL mass, extensive emphysema and scarring with bronchiectasis, extensive ground glass opacities -Sputum with mixed jad; following growths -s/p azithromycin - completed 08/28 -Pulmonary signed-off: Suspect secondary to above. Continue HAP treatment. Less likely secondary to fungal PNA Malnutrition/Weakness - continue support with high calorie boosts and prompting eating during meals to prevent weight loss and decompensation - Continue Marinol Pressure Ulcer; acute -Pressure ulcer to right buttocks; patient complains of pain especially with bed andrews -Pending wound care consult -Reposition q2hrs Pulmonary Embolus; resolved - found on CTA chest on admission, secondary to lung adenocarcinoma under treatment - PEs demonstrating radiologic resolution on repeat CTA s/p initial heparin treatment - heparin discontinued due to hemoptysis - continuing with prophylactic lovenox Asthma; chronic - History noted. Not in exacerbation. - DuoNebs PRN - incentive spirometry Q1h DVT ppx: lovenox FEN/GI: regular diet Bowel regimen: miralax TID, docusate/senna Code Status: DNR/DNI Dispo: stable,home with 24 hours help when stable, continue telemetry monitoring Admission and Anticipated Discharge Date Admission Date: August 22, 2021 Subjective This morning, Ms. Piña is feeling comfortable. She says her breathing feels comfortable and stable. This morning, she had eaten her breakfast as well. While in good spirits, Ms. Piña. She still has some pain with her lower back/bottom ulcer that she especially feels with using the bedpan. Yesterday, Ms. Piña said she had many loose bowel movements. Her goals for today are sit up longer in bed and sit at edge of bed. Still waiting for ID and wound consults. Sputum culture with mixed jad. Review of Systems Review of Systems: No REINOSO. No CP. No fever. No nausea. No chills. Decreased appetite. Per subjective. Physical Exam Physical Exam: Constitutional: elderly, in no apparent distress, fatigued appearing, sitting up in bed Cardiac: RRR, no murmurs, gallops or rubs. Normal S1, S2 Pulm: mild bibasilar crackles, end expiratory wheezes, no increased work of breathing Abd: soft, nontender, nondistended, normal bowel sounds, no rebound or guarding Results & Data Results & Data ([facility]) Vital Signs (Past 12 Hours) Vital Signs Temp Pulse Pulse Resp BP BP Pulse Ox 09/04/21 08:20 87 09/04/21 07:29 36.7 C 80 18 100/63 91 09/04/21 05:36 87 09/04/21 02:55 36.5 C 76 18 108/72 95 09/03/21 22:58 36.5 C 89 18 125/81 93
[2021-09-04] MEDS: ENOXAPARIN INJ 40 MG/0.4 ML SYR SQ SCH (09:05)
[2021-09-04] MEDS: PANTOprazole 40 MG TAB PO SCH ×2 (09:06→21:38)
[2021-09-04] MEDS: FAMOTIDINE 20 MG TAB PO SCH ×2 (09:06→21:38)
[2021-09-04] MEDS: predniSONE 20 MG TAB PO SCH (09:06)
[2021-09-04] MEDS: METOPROLOL TARTRATE 25 MG TAB PO SCH ×2 (09:06→21:38)
[2021-09-04] MEDS: DOCUSATE SODIUM/SENNA 50/8.6MG TAB PO SCH (09:12)
[2021-09-04] MEDS: POLYETHYLENE (MIRALAX) 17 GM PACK PO SCH ×3 (09:12→21:38)
[2021-09-04] MEDS: INSULIN HUMAN NPH SC SCH (09:33)
[2021-09-04] MEDS: INSULIN ASPART PER UNIT SC SCH ×4 (09:33→20:04)
--- NOTE | 2021-09-04 09:44 | Hospitalist Progress Note ---
Date of Service September 04, 2021 Assessment & Plan (1) Hypoxia: Plan: 81F w/ recent dx lung adenocarcinoma with brain mets (s/p completed SBRT, Keytruda 08/20/2021) and COVID-19 PNA in 06/2021 who presented with fatigue, lower extremity weakness, found to have left upper lobe PE, now suffering from worsening hypoxia and increased work of breathing. Acute Hypoxic Respiratory Failure -- followed by pulmonology during early stages of admission -Persistently hypoxic throughout admission, initially with increasing O2 requirements but now down to 3-4L NC -?Keytruda-induced pneumonitis and HAP (including Pneumocystis, ?fungal) also considered possibilities atop known RUL mass -Work-up as follows: -Ill with COVID19 PNA in 06/2021 -Procal normal (09/02), afebrile, no white count; CRP downtrending previously - 11.5 (09/02) from 39 (08/28) -MRSA nares, COVID19, legionella, and mycoplasma testing NEGATIVE -Fungitell positive (>500 beta-1,3D-glucan) -CTA (08/27): resolution of PE; RUL mass, extensive emphysema and scarring with bronchiectasis, extensive ground glass opacities -Sputum CX: Moderate WBCs with moderate GNBs, few GPC -Pneumocystis PCR pending -s/p azithromycin - completed 08/28 -Continue Zosyn for empiric treatment of HAP, complete on 09/05 -Continue oral prednisone for total of 2 weeks (taper from 40mg entered; end 09/15) -Await ID consultation: Appreciate insight, recommendations on possibility of Pneumocystis / need for empiric treatment, versus fungal PNA -Chest CT to be considered if clinical picture remains unclear Pulmonary Embolus -- evidence of clearance/resolution on follow-up CT - Found on CTA chest on admission, secondary to lung adenocarcinoma under treatment - PEs demonstrating radiologic resolution on repeat CTA s/p initial heparin treatment - Heparin discontinued due to hemoptysis - Continue with prophylactic lovenox Asthma - History noted. Not in exacerbation on exam. - DuoNebs PRN - Incentive spirometry encouraged Malnutrition/Weakness - Continue support with high calorie boosts and prompting eating during meals to prevent weight loss and decompensation - Continue Marinol - PT, OT ordered -- appreciate needs assessment and dispositional planning Sacral Decubitus Ulcer - In setting of several days' worth of remaining in bed, poor ambulation - WOCN consulted -- appreciate dressing recommendations, need for special mattress - Reposition q2h - Heel precautions Metastatic Lung Adenocarcinoma -- with known metastases to the brain - Known history of metastatic lung adenocarcinoma, followed by CCP - Dr. Ibarra - Oncology followed earlier in course given concerns for immunotherapy-related pneumonitis - Planning to resume single agent chemotherapy or combination chemotherapy as outpatient DVT ppx: lovenox FEN/GI: regular diet Bowel regimen: miralax TID, docusate/senna Code Status: DNR/DNI Dispo: stable, continue telemetry monitoring (2) Pulmonary embolism on left: (3) Malignant neoplasm of upper lobe, right bronchus or lung: (4) Secondary malignant neoplasm of brain: Admission and Anticipated Discharge Date Admission Date: August 22, 2021 Supervising Physician Co-Signing Physician Notes Resident Physician Supervision Note: I independently interviewed and examined the patient and verified the puckett history and physical, reviewed labs and image studies and agree with resident Dr. William findings and care plan. considering overall worsening of health/overall prognosis with metastatic ds /worsening ambulatory dysfunction - discussed getting palliative care consult - agreeable. consult placed. Subjective No acute events overnight. At the bedside this morning, patient denies any pain. She denies any shortness of breath. She endorses an okay appetite, no nausea. She expresses that she wants to go home and that being in the hospital so longespecially with some difficult diagnoseshas been really tough for her. Review of Systems Review of Systems: as per HPI Physical Exam Physical Exam: General:81yoF in NAD. HEENT: NCAT. No JVD. Cardiac: Normal rate and regular rhythm; S1 and S2 present with no murmurs, rubs, or gallops. Pulmonary: Good respiratory effort with symmetric expansion of the chest. No use of accessory muscles. Lungs were clear to auscultation bilaterally with no crackles or wheezes. Abdominal: Normoactive bowel sounds. Abdomen was soft, nondistended, and non- tender to palpation. Extremities: Upper and lower extremities are warm and well perfused. Trace peripheral edema in the LEs bilaterally. Results & Data Results & Data ([facility]) Vital Signs (Past 12 Hours) Vital Signs Temp Pulse Pulse Resp BP BP Pulse Ox 09/04/21 08:20 87 09/04/21 07:29 36.7 C 80 18 100/63 91 09/04/21 05:36 87 09/04/21 02:55 36.5 C 76 18 108/72 95 09/03/21 22:58 36.5 C 89 18 125/81 93 Resident Activity Tracking Resident Involvement: Resident Care Provided Care Provided: Adult Hospital Medicine
[2021-09-04] MEDS: ACETAMINOPHEN 325 MG TAB PO PRN ×3 (11:18→21:37)
--- NOTE | 2021-09-04 13:55 | Pharmacy Report ---
Pharmacy Glycemic Short Note 2 - Date of Service September 04, 2021 - Glycemic Short BSG Results (Last 24 hours): 09/03/21 09/03/21 09/04/21 16:15 20:03 06:47 Glucose 64 L POC Glucose 222 H 212 H 09/04/21 09/04/21 09/04/21 07:25 07:27 07:58 Glucose POC Glucose 64 L* 66 L* 172 H 09/04/21 11:19 Glucose POC Glucose 111 H OUTPATIENT ANTIDIABETIC REGIMEN: * N/A * HbA1c: 8.0% (08/30/21) ASSESSMENT: 09/04/21: * Despite increased carb coverage yesterday, BSGs still elevated throughout the day. * Fasting hypoglycemia this morning (BSG 64 mg/dL), so Lantus held today. Will re-evaluate the need for additional basal insulin tomorrow. * Novolog parameters tightened further today to provide additional prandial coverage. * Anticipate that prednisone dose will begin to taper in the near future. Expect patient's insulin requirements to decrease as steroid dose decreases. Will need to modify insulin regimen accordingly to avoid hypoglycemia. Will follow closely. 09/02 * Patient's BSGs yesterday were [phone] mg/dL. * Patient received 26 units of insulin (16 units of basal and 10 units of bolus) * Fasting today is 90 mg/dL. * Decrease Lantus to 6 units BID as fasting continues to be below goal. * Add NPH 25 units daily since BSGs uncontrolled yesterday. * Continue Novolog. 09/01 * Patient's BSGs yesterday were [phone] mg/dL. Patient received 45 units of insulin yesterday (22 units of basal and 23 units of bolus). * Fasting today is 89 mg/dL. * Patient transitioned from Solu-Medrol 40 mg IV BID to prednisone 40 mg daily today. * Will reduce basal by 30% since fasting's trending downwards. * Tighten Novolog since basal decreased but steroids will still be given. 08/31 * Pt received 60 units of insulin yesterday, with all BSGs above goal. * Basal insulin: 30 units * Bolus insulin: 30 units * SoluMedrol was reduced from 80mg IV TID --> 40mg IV BID. Anticipate that insulin needs will decrease as steroids taper. * Lantus dosing reduced slightly today. Will loosen Novolog parameters when necessary. 08/29 * Ms Piña is an 81 y/o F admitted with weakness and possible pneumonia/pneumonitis. * Patient was start on Solu-Medrol 80 mg IV q8 hours yesterday and blood sugars were close to 400 mg/dL by the evening. * Fasting this morning was 181 mg/dL after 7 units of insulin overnight. * Full weight-based stress of 2 Lantus given this morning (20 units). Give additional 10 units tonight if BSGs remain above 200 mg/dL. * Novolog was initially started at weight-based stress of 3. Tighten further based upon lunch BSG of 309 mg/dL. No IV insulin to prevent overcorrection. PLAN FOR INPATIENT GLYCEMIC CONTROL: * Basal insulin * Lantus: hold for now * NPH 25 units daily * Bolus insulin * NovoLog per scale ACHS or Q6hrs while NPO * Goal Range: Low 110 mg/dL - High 140 mg/dL * Correction Factor: 25 mg/dL/unit * Nutritional / Prandial insulin per carb ratio of 1 unit per 4 grams CHO consumed
[2021-09-05] MEDS: oxyCODONE HCL IR 5 MG TAB (IMMEDIATE RELEASE) PO PRN (01:47)
--- NOTE | 2021-09-05 06:38 | Hospitalist Progress Note ---
Date of Service September 05, 2021 Assessment & Plan (1) Hypoxia: Plan: 81F w/ recent dx lung adenocarcinoma with brain mets (s/p completed SBRT, Keytruda 08/20/2021) and COVID-19 PNA in 06/2021 who presented with fatigue, lower extremity weakness, found to have left upper lobe PE, now suffering from worsening hypoxia and increased work of breathing. Acute Hypoxic Respiratory Failure --followed by pulmonology during early stages of admission -Persistently hypoxic throughout admission, initially with increasing O2 requirements but now down to 3-4L NC -Suspect possible Keytruda-induced pneumonitis vs. HAP (including Pneumocystis, ?fungal), atop known RUL mass and now-resolved PEs -Work-up as follows: -Ill with COVID19 PNA in 06/2021 -Procal normal (09/02), afebrile, no white count; CRP downtrending previously - 11.5 (09/02) from 39 (08/28) -MRSA nares, COVID19, legionella, and mycoplasma testing NEGATIVE -Fungitell positive (>500 beta-1,3D-glucan) -CTA (08/27): resolution of PE; RUL mass, extensive emphysema and scarring with bronchiectasis, extensive ground glass opacities -Sputum Stain (CX pending): Moderate WBCs with moderate GNBs, few GPC -Pneumocystis PCR pending as of 09/05 AM -ID consultation: Low suspicion for fungal PNA. Await Pneumocystis PCR. OK to stop Zosyn. 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 Ibarra - Oncology followed earlier in course given concerns for immunotherapy-related pneumonitis - Planning to resume single agent chemotherapy or combination chemotherapy as outpatient - Palliative care consulted - very much appreciate their input: Discussed prognosis, expectations moving forward; family to decide if wishing to go forward with hospice vs. rehab following hospitalization - Noted abdominal distension on exam - ? ascites. considering the plan for hospice - will hold off on further evaluation. Pulmonary Embolus--evidence of clearance/resolution on follow-up CT - Found on CTA chest on admission, secondary to lung adenocarcinoma under treatment - PEs demonstrating radiologic resolution on repeat CTA s/p initial heparin treatment - Heparin discontinued due to hemoptysis - Continue with prophylactic Lovenox - Specific AC needs to be clarified moving forward pending [id number] decisions Hyperglycemia sec to steroid - Pharmacy consulted. follow for insulin need on discharge Asthma - History noted. Not in exacerbation on exam. - DuoNebs PRN - Incentive spirometry encouraged Malnutrition/Weakness -- with slowly-improving PO intake, weight up to 66kg from ~61 on admission - Continue support with high calorie boosts and prompting eating during meals to prevent weight loss and decompensation - Continue Marinol - PT, OT ordered -- appreciate needs assessment and dispositional planning - If PO intake still poor, can consider RD consultation for further recommendations going forward Sacral Decubitus Ulcer (Stage 2) - In setting of several days' worth of remaining in bed, poor ambulation - WOCN consulted and following -- appreciate their care - Add Waffle cushion - Reposition q2h - Heel precautions DVT ppx: lovenox FEN/GI: regular diet Bowel regimen: MiraLax, Docusate/Senna PRN Code Status: DNR/DNI Dispo: Transfer to [place] - no longer requiring Tele services (2) Pulmonary embolism on left: (3) Malignant neoplasm of upper lobe, right bronchus or lung: (4) Secondary malignant neoplasm of brain: Admission and Anticipated Discharge Date Admission Date: August 22, 2021 Supervising Physician Co-Signing Physician Notes Resident Physician Supervision Note: I independently interviewed and examined the patient and verified the puckett history and physical, reviewed labs and image studies and agree with resident Dr. William findings and care plan. Subjective Last night, patient did have lower back pain for which she was given oxycodone x1. While that helped with the pain, she does report that she feels very groggy this morning because of it. Daughters are at the bedside. She says that her breathing feels easy, no shortness of breath. No chest pain. Appetite is still not greateating food that her daughters bring in, but not much outside of that. No chills or night sweats. Review of Systems Review of Systems: As per HPI Physical Exam Physical Exam: General: 81yoF in NAD. HEENT: NCAT. No JVD. Cardiac: Normal rate and regular rhythm; S1 and S2 present with no murmurs, rubs, or gallops. Pulmonary: Good respiratory effort with symmetric expansion of the chest. No use of accessory muscles. Lungs were clear to auscultation bilaterally with no crackles or wheezes. Abdominal: Normoactive bowel sounds. Abdomen was soft, nondistended, and non- tender to palpation. Extremities: Upper and lower extremities are warm and well perfused. Trace peripheral edema in the LEs bilaterally. Results & Data Results & Data ([facility]) Vital Signs (Past 12 Hours) Vital Signs Temp Pulse Pulse Resp BP Pulse Ox 09/05/21 05:09 91 H 09/05/21 04:08 36.4 C L 88 18 121/70 94 09/04/21 22:59 36.6 C 90 18 109/69 97 09/04/21 19:05 36.7 C 97 H 18 99/63 L 94 Resident Activity Tracking Resident Involvement: Resident Care Provided Care Provided: Adult Hospital Medicine
[2021-09-05 07:27] LABS: Hematocrit (blood only) 33.6 % (37-47); Hemoglobin 11.1 g/dL (12.0-16.0); Mean Corpuscular Hemoglobin 31.4 pg (25-34); Mean Corpuscular Volume 94.9 fL (80-100); Mean Platelet Volume 10.1 fL (7.4-10.4); Nucleated RBC # (auto) 0.28 K/uL (0-0); Nucleated RBC % (auto) 3.7 %; Platelet Count 151 K/uL (130-400); RDW Coefficient of Variation 15.5 % (11.5-14.5); RDW Standard Deviation 52.8 fL (36.4-46.3); Red Blood Count 3.54 M/uL (4.2-5.4); White Blood Count 7.62 K/uL (4.8-10.8)
[2021-09-05 07:51] LABS: Creatinine Clr Calc Pharmacy 102.2 ml/min; Est GFR (African American) 112.6 ml/min; Est GFR (Non-African American) 97.1 ml/min
--- NOTE | 2021-09-05 08:29 | Pharmacy Report ---
Pharmacy Glycemic Short Note 2 - Date of Service September 05, 2021 - Glycemic Short BSG Results (Last 24 hours): 09/04/21 09/04/21 09/04/21 11:19 16:27 20:03 POC Glucose 111 H 177 H 134 H 09/05/21 09/05/21 09/05/21 07:17 07:20 07:43 POC Glucose 66 L* 62 L* 96 OUTPATIENT ANTIDIABETIC REGIMEN: * N/A * HbA1c: 8.0% (08/30/21) ASSESSMENT: 09/05: * BSGs yesterday of 64, 111, 177, and 134 mg/dL, fasting BSG of 62 mg/dL this morning * Received 45 units of insulin (25 units of NPH and 20 units of prandial/correctional bolus) * Prednisone reduced from 40 mg to 30 mg PO daily today * Will reduce NPH today to 15 units (~0.22 unit/kg) in light of reduced prednisone dose and repeat fasting hypoglycemia * Lantus held yesterday in light of fasting hypoglycemia, will continue to hold 09/04: * Despite increased carb coverage yesterday, BSGs still elevated throughout the day. * Fasting hypoglycemia this morning (BSG 64 mg/dL), so Lantus held today. Will re-evaluate the need for additional basal insulin tomorrow. * Novolog parameters tightened further today to provide additional prandial coverage. * Anticipate that prednisone dose will begin to taper in the near future. Expect patient's insulin requirements to decrease as steroid dose decreases. Will need to modify insulin regimen accordingly to avoid hypoglycemia. Will follow closely. 09/02: * Patient's BSGs yesterday were [phone] mg/dL. * Patient received 26 units of insulin (16 units of basal and 10 units of bolus) * Fasting today is 90 mg/dL. * Decrease Lantus to 6 units BID as fasting continues to be below goal. * Add NPH 25 units daily since BSGs uncontrolled yesterday. * Continue Novolog. background: * Ms Piña is an 81 y/o F admitted with weakness and possible pneumonia/pneumonitis. * Patient was start on Solu-Medrol 80 mg IV q8 hours yesterday and blood sugars were close to 400 mg/dL by the evening. * Fasting this morning was 181 mg/dL after 7 units of insulin overnight. * Full weight-based stress of 2 Lantus given this morning (20 units). Give additional 10 units tonight if BSGs remain above 200 mg/dL. * Novolog was initially started at weight-based stress of 3. Tighten further based upon lunch BSG of 309 mg/dL. No IV insulin to prevent overcorrection. PLAN FOR INPATIENT GLYCEMIC CONTROL: * Basal insulin - reduce * Hold Lantus * NPH 15 units SC daily with prednisone 30 mg * Bolus insulin - continue * NovoLog per scale ACHS or Q6hrs while NPO * Goal Range: Low 110 mg/dL - High 140 mg/dL * Correction Factor: 25 mg/dL/unit * Nutritional / Prandial insulin per carb ratio of 1 unit per 4 grams CHO consumed
[2021-09-05] MEDS ORDERED: INSULIN HUMAN NPH SC SCH (09:00)
[2021-09-05] MEDS: INSULIN ASPART PER UNIT SC SCH ×4 (09:14→21:00)
[2021-09-05] MEDS: ENOXAPARIN INJ 40 MG/0.4 ML SYR SQ SCH (09:21)
[2021-09-05] MEDS: ACETAMINOPHEN 325 MG TAB PO PRN (09:21)
[2021-09-05] MEDS: INSULIN HUMAN NPH SC SCH (09:23)
[2021-09-05] MEDS: METOPROLOL TARTRATE 25 MG TAB PO SCH ×2 (09:23→22:05)
[2021-09-05] MEDS: FAMOTIDINE 20 MG TAB PO SCH ×2 (09:23→22:07)
[2021-09-05] MEDS: DOCUSATE SODIUM/SENNA 50/8.6MG TAB PO SCH (09:26)
[2021-09-05] MEDS: PANTOprazole 40 MG TAB PO SCH ×2 (09:26→22:06)
[2021-09-05] MEDS: POLYETHYLENE (MIRALAX) 17 GM PACK PO SCH (09:26)
[2021-09-05] MEDS: predniSONE 10 MG TABLET PO SCH (09:29)
[2021-09-05] MEDS ORDERED: POLYETHYLENE (MIRALAX) 17 GM PACK PO PRN (10:50)
[2021-09-05] MEDS ORDERED: DOCUSATE SODIUM/SENNA 50/8.6MG TAB PO PRN (10:50)
[2021-09-05] MEDS: LIDOCAINE 5% 1 PATCH TD SCH (10:54)
--- NOTE | 2021-09-05 13:47 | Palliative Care Consultation ---
Date of Consultation September 05, 2021 Assessment & Plan (1) Palliative care encounter: I met with Ирина and her daughters at bedside for over an hour. Her son was also on speaker phone during the visit. Ирина is grieving the loss of many activities and goals that she had prior to her cancer diagnosis. She was scheduled to go [facility] [facility] [place] today with her family. She lived independently was quite active, working as a seamstress. She is involved in her islam and is expecting a visit from her map mounter today. She has had little time to adjust to her diagnosis and though she recognizes that this is not curable, had hoped for "years" of time with treatment. Her family has been very supportive and her daughter, Ronit, is living with her to help with her care. She has been considering whether to go to SNF on discharge for rehab versus returning home with hospice care. We talked about the hospice benefit and resources provided. They had been getting support with paid caregivers prior to admission for a few hours a day. Ирина talks about priorities for her at this time being spending time with family and friends, islam and being able to finish some craft projects that she's been working on. Her goal with rehab would be to improve her strength to be more independent at home and potentially be strong enough to consider further cancer treatment though she recognizes that this may not be possible. We talked about realistic expectations for rehab which will likely be short term with her progressive cancer. Her daughters spoke with me about prognosis which is likely less than three months. They are unsure if they would rather have her at home with hospice to maximize that time with family versus the load on Ronit who is her primary caregiver. We talked about hospice respite care as well. They will consider as a family and we will touch base tomorrow. (2) Hypoxia: Improving (3) Weakness: with debility, dependent for care at this time with metastatic lung cancer (4) Metastatic primary lung cancer: History of Present Illness Reason for Consultation: goals of care Requesting Physician: Dr. Telles Attending Physician: Brissa Marcano MD History of Present Illness 81 yo lady who was diagnosed with metastatic adenocarcinoma of the lung in June of this year. She has known brain mets and did receive radiation treatment. She was also started on keytruda. Since her first treatment she has had progressive weakness and shortness of breath. She tells me that a month prior to her diagnosis she was climbing a ten foot ladder to hang curtains. She is now essentially bedbound. On admission she was diagnosed with PE by CTA which has subsequently resolved. She has lower O2 requirement and denies dyspnea. She is tearful with conversation and tells me that she feels stressed. She denies pain. Her daughters are at bedside. Allergies Allergy/AdvReac Type Severity Reaction Status Date / Time Sulfa (Sulfonamide Allergy Intermediate severe Verified 08/22/21 20:52 Antibiotics) acid reflux lasted for 2 months gabapentin Allergy Unknown unknown if Verified 08/22/21 20:52 gabapentin caused symptoms, see PMHx paralysis banana AdvReac Intermediate causes Verified 08/22/21 20:52 burping Home Medications Medication Instructions Recorded Confirmed Type lifitegrast 5 % eye drops in a 1 drp OPHTHALMIC (EYE) QAM 02/08/21 08/22/21 His tory dropperette (Xiidra) nutritional supplement-fiber oral 1 ea PO DAILY PRN ml 02/08/21 08/22/21 History liquid omega-3s 800 mg-dha 186.67 mg-epa 1 cap PO QAM cap 02/08/21 08/22/21 History 560 mg-fish-vit D3 8.33 mcg capsule (De3 [facility] Benefits) Zinc 1 tsp PO 2XWK 07/03/21 08/22/21 History acetaminophen 500 mg tablet 1,000 mg PO BID 07/03/21 08/22/21 History albuterol sulfate 90 mcg/actuation 2 puff INHALATION Q6H PRN 07/03/21 08/22/21 History aerosol inhaler naproxen sodium 220 mg tablet 220 mg PO BID PRN 07/03/21 08/22/21 History (Aleve) nutritional supplement-fiber oral 1 ea PO QAM 07/03/21 08/22/21 History liquid psyllium husk 0.4 gram capsule 0.4 g PO QAM 07/03/21 08/22/21 History (Metamucil) cholecalciferol (vitamin D3) 10 10 mcg PO DAILY 07/20/21 08/22/21 History mcg/mL (400 unit/mL) oral drops lorazepam 0.5 mg tablet (Ativan) 0.5 mg PO DAILY PRN 07/20/21 08/22/21 History oxycodone 5 mg capsule 5 mg PO Q4H PRN 07/20/21 08/22/21 History rivaroxaban 10 mg tablet (Xarelto) 10 mg PO DAILY 07/20/21 08/22/21 History vitamin B complex (B 1 tab PO DAILY 07/20/21 08/22/21 History Complex-Vitamin B12) pantoprazole 40 mg tablet,delayed 40 mg PO BID #60 tab 08/06/21 08/22/21 Rx release (Protonix) dexamethasone 4 mg tablet 4 mg PO .COMPLEX #60 tab 08/08/21 08/22/21 Rx Patient History Medical History Abnormal chest CT Abnormal CT scan, chest Asthma inhaler prn Cerebral edema Closed olecranon fracture Diverticulitis Ex-smoker Hypercalcemia LAD (lymphadenopathy), mediastinal Left foot pain Low back pain Lung mass Malignant neoplasm of upper lobe, right bronchus or lung Mass in chest RUL mass with lymphadenopathy concerning for metastatic disease per CT report 07/02/2021. PET scan 07/04/2021 completed, results pending. Metastatic primary lung cancer Osteoarthritis Osteopenia Pain of right lower extremity Paralysis acute onset 06/08/2021-right upper and lower extremity weakness, significant urinary incontinence and gait instability. Had started gabapentin at 3 daily tablets 06/07/2021 titrated to 9 daily tablets over 7-10 days. Per pt and daughter, suspected to be side effect from gabapentin by prescribing provider and medication tapered. Pt denies imaging. She reports persistent symptoms beyond gabapentin d/c with gait instability contributing to fall. Pneumonitis Sacroiliac joint pain Scoliosis Seborrheic keratosis Secondary malignant neoplasm of brain Surgical History History of arthroscopy of right knee History of bilateral cataract extraction History of bilateral tubal ligation History of breast biopsy all cysts all benign History of dilatation and curettage History of repair of right rotator cuff History of tonsillectomy and adenoidectomy History of wisdom tooth extraction Hx of colonoscopy Surgical history of tubal ligation Family History Other No family history of adverse response to anesthesia Social History Smoking Status: Former smoker Number of Years Since Quit: 25; Second Hand Exposure: Yes; Hx Alcohol Use: No Hx Substance Use: No Preferred Language: Armenian Communication Ability: Effective Hearing Ability: Normal Respiratory Physician Required: No Beliefs That Will Affect Care: None Current Living Situation: Alone Current Living Situation Comment: daughter has been staying with patient to assist current occupational status: retired current occupation: Peds Nurse Feels Safe at Home: Yes during the past year weight has: remained stable Physical Activity Frequency: Does not Exercise Assistive Devices: Oxygen - Continuous Review of Systems Review of Systems: [place] Symptom Assessment Scale Pain 0/3 Dyspnea 0/3 Anxiety 2/3 Fatigue 2/3 Nausea 0/3 Drowsiness 0/3 Palliative Performance Score 30% Physical Exam Constitutional: no acute distress Respiratory: normal respiratory effort; no labored breathing Neurologic: moves all extremities and awake; not confused Psychiatric: Orientation: alert and oriented x 3 Results & Data ([facility]) Vital Signs (Past 12 Hours) Vital Signs Temp Pulse Pulse Resp BP BP Pulse Ox 09/05/21 11:06 98.2 F 102 H 19 101/65 92 09/05/21 07:22 97.3 F L 93 H 19 113/73 95 09/05/21 05:09 91 H 09/05/21 04:08 97.5 F L 88 18 121/70 94 PG Care Time/CCT Total # of Minutes Spent Total Time Spent: 80 Total Time Spent with Patient: Total time spent is greater than 50% in coordination of care (as documented) at patient's floor/unit and/or counseling patient: goals of care, hospice, prognosis, patient and family education and support Coding Level of Care Code 30611 Initial Inpt Care Lvl 3 Diagnoses Palliative care encounter Z51.5 Hypoxia R09.02 Metastatic primary lung cancer C34.90 Weakness R53.1
--- NOTE | 2021-09-06 07:49 | Hospitalist Progress Note ---
Date of Service September 06, 2021 Assessment & Plan (1) Hypoxia: Plan: 81F w/ recent dx lung adenocarcinoma with brain mets (s/p completed SBRT, Keytruda 08/20/2021) and COVID-19 PNA in 06/2021 who presented with fatigue, lower extremity weakness, found to have left upper lobe PE, now suffering from worsening hypoxia and increased work of breathing. Acute Hypoxic Respiratory Failure --followed by pulmonology during early stages of admission -Persistently hypoxic throughout admission, initially with increasing O2 requirements but now down to 3-4L NC -Suspect possible Keytruda-induced pneumonitis vs. HAP (including Pneumocystis, ?fungal), atop known RUL mass and now-resolved PEs -Work-up as follows: -Ill with COVID19 PNA in 06/2021 -Procal normal (09/02), afebrile, no white count; CRP downtrending previously - 11.5 (09/02) from 39 (08/28) -MRSA nares, COVID19, legionella, and mycoplasma testing NEGATIVE -Fungitell positive (>500 beta-1,3D-glucan) -CTA (08/27): resolution of PE; RUL mass, extensive emphysema and scarring with bronchiectasis, extensive ground glass opacities -Sputum Stain (CX pending): Moderate WBCs with moderate GNBs, few GPC -Pneumocystis PCR pending as of 09/05 AM -ID consultation: Low suspicion for fungal PNA. Await Pneumocystis PCR. OK to stop Zosyn. 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 Ibarra - Oncology followed earlier in course given concerns for immunotherapy-related pneumonitis - Planning to resume single agent chemotherapy or combination chemotherapy as outpatient - Palliative care consulted - very much appreciate their input: Discussed prognosis, expectations moving forward; family to decide if wishing to go forward with hospice vs. rehab following hospitalization Pulmonary Embolus--evidence of clearance/resolution on follow-up CT - Found on CTA chest on admission, secondary to lung adenocarcinoma under treatment - PEs demonstrating radiologic resolution on repeat CTA s/p initial heparin treatment - Heparin discontinued due to hemoptysis - Continue with prophylactic Lovenox - Specific AC needs to be clarified moving forward pending [id number] decisions Asthma - History noted. Not in exacerbation on exam. - DuoNebs PRN - Incentive spirometry encouraged Malnutrition/Weakness -- with slowly-improving PO intake, weight up to 66kg from ~61 on admission - Continue support with high calorie boosts and prompting eating during meals to prevent weight loss and decompensation - Continue Marinol - PT, OT ordered -- appreciate needs assessment and dispositional planning - If PO intake still poor, can consider RD consultation for further recommendations going forward Sacral Decubitus Ulcer (Stage 2) - In setting of several days' worth of remaining in bed, poor ambulation - WOCN consulted and following -- appreciate their care - Add Waffle cushion - Reposition q2h - Heel precautions DVT ppx: lovenox FEN/GI: regular diet Bowel regimen: MiraLax, Docusate/Senna PRN Code Status: DNR/DNI Dispo: Transfer to [place] - no longer requiring Tele services (2) Pulmonary embolism on left: (3) Malignant neoplasm of upper lobe, right bronchus or lung: (4) Secondary malignant neoplasm of brain: Admission and Anticipated Discharge Date Admission Date: August 22, 2021 Results & Data Results & Data ([facility]) Vital Signs (Past 12 Hours) Vital Signs Temp Pulse Resp BP Pulse Ox 09/05/21 21:28 36.9 C 98 H 18 98/66 L 95
[2021-09-06] MEDS: METOPROLOL TARTRATE 25 MG TAB PO SCH (07:51)
[2021-09-06] MEDS: FAMOTIDINE 20 MG TAB PO SCH (07:52)
[2021-09-06] MEDS: PANTOprazole 40 MG TAB PO SCH (07:52)
[2021-09-06] MEDS: predniSONE 10 MG TABLET PO SCH (07:52)
[2021-09-06] MEDS: LIDOCAINE 5% 1 PATCH TD SCH (07:52)
[2021-09-06] MEDS: ENOXAPARIN INJ 40 MG/0.4 ML SYR SQ SCH (07:53)
[2021-09-06] MEDS: INSULIN ASPART PER UNIT SC SCH ×2 (08:52→12:51)
[2021-09-06] MEDS: INSULIN HUMAN NPH SC SCH (08:53)
[2021-09-06] MEDS ORDERED: LOPERAMIDE HCL 2 MG CAP PO STA (10:21)
--- NOTE | 2021-09-06 12:34 | Palliative Care Progress Note ---
Date of Service September 06, 2021 Assessment & Plan (1) Palliative care encounter: Plan: After discussion with her family, Ирина has decided to go home with hospice care. We discussed shift of focus to comfort and reviewed medications. They are in agreement with stopping lovenox and insulin. We discussed medications provided by hospice that will be available for symptom management. They are comfortable with their decision and denied any other questions or concerns. Anticipate discharge today with hospice at home. Admission and Anticipated Discharge Date Admission Date: August 22, 2021 Subjective Resting comfortably with daughter, Ami, at bedside. Denies pain or dyspnea. Eager to go home. Review of Systems Review of Systems: [place] Symptom Assessment Scale Pain 0/3 Dyspnea 0/3 Fatigue 2/3 Nausea 0/3 Constipation 0/3 Drowsiness 0/3 Palliative Performance Score 30% Physical Exam Constitutional: no acute distress Respiratory: normal respiratory effort; no labored breathing Neurologic: moves all extremities and awake Psychiatric: Orientation: alert and oriented x 3 Results & Data ([facility]) Vital Signs (Past 12 Hours) Vital Signs Temp Pulse Resp BP Pulse Ox 09/06/21 07:55 98.2 F 97 H 16 112/77 95 PG Care Time/CCT Total # of Minutes Spent Total Time Spent: 25 Total Time Spent with Patient: Total time spent is greater than 50% in coordination of care (as documented) at patient's floor/unit and/or counseling patient: goals of care, symptom management, Coding Level of Care Code 11613 Subseq Hosp Care Lvl 2 Diagnoses Palliative care encounter Z51.5
--- NOTE | 2021-09-06 13:31 | Discharge Summary ---
Date of Service September 06, 2021 Admission HPI Per Admitting Provider Ирина Piña is a pleasant 81yo female with metastatic adenocarcinoma of the lung presenting with SOB, generalized weakness and difficulty ambulating. Patient presented to the ER on 07/05/21 following an injury to the right shoulder following a fall at home. Imaging revealed an incidental 2.9cm lesion in the right lung apex. She had a positive PET CT. MRI of the brain with metastatic disease. Ultrasound guided FNA of right supraclavicular lymph node revealed metastatic adenocarcinoma, lung primary. She completed SBRT 3000cGy of her brain lesions on 08/15/21. She received her first Keytruda infusion on 08/20/21. She follows with Dr. Ibarra. Patient resides at home. Her daughter has been staying with her since the diagnosis. Patient has had 2 days of fatigue - sleeping much more than usual, slept most of the day today. Also with worsening generalized weakness and bilateral LE weakness. Patient has been unable to stand on her own and has been requiring assistance with transfers. She has had some muscle pain in her buttock and quadriceps as well as increased weakness in her quadriceps. She called her PCP with these complaints and was instructed to come to the ER. Patient thinks she may have been experiencing some shortness of breath today as well. She denies cough, chest pain, palpitations, dizziness or syncope. She has had bilateral LE swelling as well as some abdominal distention. She is eating well and having regular BMs. No additional complaints at this time. Patient in sinus tachycardia with HR of 109, hypoxic on arrival to 85% on room air. She had a CTA Chest performed which revealed segmental and subsegmental PEs in MATEUSZ. ER Course: Lovenox 60mg ordered Admission Exam Per Admitting Provider General: patient resting comfortably, NAD, non-toxic in appearance, AA&O x 4 Skin: warm, dry, intact, no rashes or lesions, small bruise on right side of gluteal cleft HEENT: NC/AT, PERRL, EOMI, anicteric sclera, conjunctiva without injection, external ear normal to inspection and nontender, nares patent, moist mucus membranes, dentition intact, no oropharyngeal lesions, neck supple, trachea midline, no LAD, no thyromegaly, no JVD Heart: +S1/S2, regular, tachycardic, no m/r/g Lungs: equal air entry bilaterally, no rales/rhonchi/wheezes Abd: +BS, soft, nontender, mildly distended, tympanic to percussion, no masses/organomegaly/ascites Ext: warm, 2+ pulses in UE/LE bilaterally, no clubbing/cyanosis or edema Neuro: patient AA&O x 4, speech intact, no facial droop, diffuse weakness Muscle tenderness with palpation of right gluteus hieu Principal Diagnosis acute hypoxic respiratory failure metastatic lung adenocarcinoma pulmonary embolus Discharge Exam General: 81yoF in NAD. HEENT: NCAT. No JVD. Cardiac: Normal rate and regular rhythm; S1 and S2 present with no murmurs, rubs, or gallops. Pulmonary: Good respiratory effort with symmetric expansion of the chest. No use of accessory muscles. Lungs were clear to auscultation bilaterally with no crackles or wheezes. Abdominal: Normoactive bowel sounds. Abdomen was soft, nondistended, and non- tender to palpation. Extremities: Upper and lower extremities are warm and well perfused. Trace peripheral edema in the LEs bilaterally Discharge Data Allergies Allergy/AdvReac Type Severity Reaction Status Date / Time Sulfa (Sulfonamide Allergy Intermediate severe Verified 08/22/21 20:52 Antibiotics) acid reflux lasted for 2 months gabapentin Allergy Unknown unknown if Verified 08/22/21 20:52 gabapentin caused symptoms, see PMHx paralysis banana AdvReac Intermediate causes Verified 08/22/21 20:52 burping Consultations 08/22/21 21:09 ED Decision to Admit Stat 08/27/21 15:07 Consult Oncology Routine 08/27/21 18:37 Consult Pulmonology Routine 09/02/21 14:49 Consult Infectious Diseases Routine 09/04/21 11:15 Consult Palliative Care Routine -- Excerpted from notes of Dr. Emily Larson -- "I met with Ирина and her daughters at bedside for over an hour. Her son was also on speaker phone during the visit. Ирина is grieving the loss of many activities and goals that she had prior to her cancer diagnosis. She was scheduled to go to the [facility] in [place] today with her family. She lived independently was quite active, working as a seamstress. She is involved in her orthodox and is expecting a visit from her disintegrator feeder today. She has had little time to adjust to her diagnosis and though she recognizes that this is not curable, had hoped for "years" of time with treatment. Her family has been very supportive and her daughter, Ronit, is living with her to help with her care. She has been considering whether to go to SNF on discharge for rehab versus returning home with hospice care. We talked about the hospice benefit and resources provided. They had been getting support with paid caregivers prior to admission for a few hours a day. Ирина talks about priorities for her at this time being spending time with family and friends, orthodox and being able to finish some [employer] projects that she's been working on. Her goal with rehab would be to improve her strength to be more independent at home and potentially be strong enough to consider further cancer treatment though she recognizes that this may not be possible. We talked about realistic expectations for rehab which will likely be short term with her progressive cancer. Her daughters spoke with me about prognosis which is likely less than three months. They are unsure if they would rather have her at home with hospice to maximize that time with family versus the load on Ronit who is her primary caregiver. We talked about hospice respite care as well. They will consider as a family and we will touch base tomorrow." "After discussion with her family, Ирина has decided to go home with hospice care. We discussed shift of focus to comfort and reviewed medications. They are in agreement with stopping lovenox and insulin. We discussed medications provided by hospice that will be available for symptom management. They are comfortable with their decision and denied any other questions or concerns. Anticipate discharge today with hospice at home." Ordered Studies 08/22/21 18:40 CT angio chest PE protocol Stat IMPRESSION: 1. Small segmental and subsegmental pulmonary emboli of the left upper lobe. 2. Mildly decreased size of the right upper lobe malignant mass now measuring up to 6.5 cm compatible with positive treatment response. 3. Slightly decreased size of the metastatic thoracic lymphadenopathy. 4. Patchy multilobar bilateral groundglass and consolidative opacities are suggestive of an infectious or inflammatory pneumonitis such as viral pneumonia. 5. Progressively worsened mild to moderate acute on subacute T11 compression deformity with 2 mm retropulsion. This is new from the 06/18/2021 study. 08/22/21 18:42 MR brain wo/w con Stat IMPRESSION: 1. Decrease in size and improvement in the surrounding edema involving the left intracranial metastatic foci. No new metastatic lesions identified. 2. No acute hemorrhage. 08/27/21 16:06 CT angio chest PE protocol Routine IMPRESSION: 1. Interval resolution of previously noted pulmonary embolism. Extensive emphysematous and scarring changes are again seen. Increased groundglass opacities compatible with worsening pneumonia. Given the rapidity of spread, lepidic spread of tumor is considered unlikely. 2. Pulmonary hypertension. 3. Redemonstration of right upper lobe mass and mediastinal and cervical lymphadenopathy. 08/28/21 11:00 US venous doppler LE BI Routine IMPRESSION: No DVT within the right or left lower extremity. Diabetes Follow up Diabetes Follow-up Needed for Newly Diagnosed Diabetes Hospital Course (1) Hypoxia: 81F w/ recent dx lung adenocarcinoma with brain mets (s/p completed SBRT, Keytruda 08/20/2021) and COVID-19 PNA in 06/2021 who presented with fatigue, lower extremity weakness, found to have left upper lobe PE and acute hypoxic respiratory failure, suspected to be secondary to pneumonitis vs. PNA. Her O2 requirement decreased significantly prior to discharge. After extensive discussions with family and palliative care team, opted to go home hospice. Acute Hypoxic Respiratory Failure --followed by pulmonology during early stages of admission -Persistently hypoxic throughout admission, initially with increasing O2 requirements but now down to 3-4L NC -Suspect possible Keytruda-induced pneumonitis vs. HAP (sputum culture grew Strenotrophomonas), atop known RUL mass and now-resolved PEs -Work-up as follows: -Ill with COVID19 PNA in 06/2021 -Procal normal (09/02), afebrile, no white count; CRP downtrending previously - 11.5 (09/02) from 39 (08/28) -MRSA nares, COVID19, legionella, and mycoplasma testing NEGATIVE -Fungitell positive (>500 beta-1,3D-glucan) -- thought to be false positive in setting of Zosyn -CTA (08/27): resolution of PE; RUL mass, extensive emphysema and scarring with bronchiectasis, extensive ground glass opacities -Sputum Stain (CX pending): Stenotrophomonas; Moderate WBCs with moderate GNBs, few GPC -Pneumocystis PCR pending at discharge -ID consultation: Low suspicion for fungal PNA. Await Pneumocystis PCR. OK to stop Zosyn. -s/p azithromycin and Zosyn course while here -Rx of Levofloxacin sent in on discharge for Strenotrophomonas coverage. -Continue oral prednisone for total of 2 weeks at recommendation of Pulmonary (taper from 40mg entered; end 09/15) Metastatic Lung Adenocarcinoma--with known metastases to the brain - Known history of metastatic lung adenocarcinoma, followed by CCP - Dr. Ibarra - Oncology followed earlier in course given concerns for immunotherapy-related pneumonitis - Palliative care consulted - home with hospice care. Pulmonary Embolus--evidence of clearance/resolution on follow-up CT - Found on CTA chest on admission, secondary to lung adenocarcinoma under treatment - PEs demonstrating radiologic resolution on repeat CTA s/p initial heparin kaiden tment - Heparin discontinued due to hemoptysis - Given [id number] and transition to hospice, will discontinue lovenox at discharge Malnutrition/Weakness -- with slowly-improving PO intake, weight up to 66kg from ~61 on admission - Continue support with high calorie boosts and prompting eating during meals to prevent weight loss and decompensation - Continue Marinol -- sent to pharmacy at discharge Sacral Decubitus Ulcer (Stage 2) - In setting of several days' worth of remaining in bed, poor ambulation - WOCN consulted and followed while here Code: DNR/DNI (2) Pulmonary embolism on left: (3) Malignant neoplasm of upper lobe, right bronchus or lung: (4) Secondary malignant neoplasm of brain: Total Time Total Time Spent Total Time Spent (In Minutes): 30 Discharge Plan Discharge Items Patient Disposition: Hospice - Home Reason For Visit: WEAKNESS, PES Discharge Diagnosis: acute hypoxic respiratory failure pneumonitis pulmonary embolus weakness metastatic lung adenocarcinoma Activity: Per Instructions section Non-emergency contact: Primary Care Provider Call non-emergency contact if: you have any medication questions, your symptoms worsen, your pain is not controlled and your temperature is above 101 Follow-up/Referrals: Miracle aPyton DO [Primary Care Provider] - Diet: Regular Addtl Attending Provider Instructions: You were seen in [facility] for evaluation of fatigue, weakness in your legs, and worsening shortness of breath. You underwent several tests to determine the cause of your symptoms. Throughout your testing, you were discovered to have a blood clot in your lungs, as well as generalized inflammation of the lungs (pneumonitis). Because of this lung inflammation, you were placed on anti-inflammatories (prednisone) and also started on antibiotics for pneumonia coverage. Thankfully, you responded very well to these 2 things and required minimal amounts of oxygen upon your discharge. During your stay here, we engaged in extensive discussions with you and your family regarding goals of care and treatment moving forward, with regards to your current hospital admission and your lung cancer. You met with our palliative care doctor, Dr. Larson, to flat knitter helper in these discussions. Prior to discharge, you and your family decided that pursuing a focus on medicines/resources that maximizes quality of life, comfort, and achieving good days would be the primary focus going forward rather than intensive medical management. To help achieve this and further aid with goals of care planning, you will continue coordinating with a hospice team at home. Please note the following medication changes/additions/deletions during your stay here: - Tessalon Perles 100mg, three times daily -- helps w/ cough - Drobaniol 2.5mg, once nightly -- helps w/ appetite Levofloxacin 750 mg once daily for 5 days -- for resolving PNA - Lidocaine patch (change daily) -- for local pain - Famotidine 20mg twice daily -- for stomach discomfort/reflux - Prednisone: Please see instructions given by pharmacy for taper - Senokot once daily - for constipation - STOP Xarelto/Lovenox, insulin, dexamethasone Please follow-up with your primary care physician within the next 1 to 2 weeks to review this visit. If you have any medication question or concerns, please contact your hospice team or your primary care provider for further assistance. Is a pleasure for caring for you while you were here, and we wish you all the best in your transition back home. Pending Studies at Discharge: No Stand-Alone Forms: [facility] Medications and DC Order Prescriptions: New sennosides-docusate sodium [Senokot-S] 8.6-50 mg Tablet 1 tab PO QAM PRN (Reason: constipation ) Qty: 30 RF: 0 dronabinol 2.5 mg Capsule 2.5 mg PO HS PRN (Reason: anorexia) Qty: 30 RF: 0 famotidine 20 mg Tablet 20 mg PO BID Qty: 60 RF: 0 prednisone 10 mg tablet See Rx Instructions .ROUTE .COMPLEX Qty: 20 RF: 0 melatonin 3 mg Tablet 3 mg PO HS PRN (Reason: insomnia ) Qty: 30 RF: 0 benzonatate 100 mg Capsule 100 mg PO TID PRN (Reason: cough) Qty: 90 RF: 0 lidocaine 5 % Adhesive Patch,Medicated 1 patch transdermal QAM Qty: 30 RF: 0 dronabinol 2.5 mg capsule 2.5 mg PO HS PRN (Reason: nausea and vomiting) Qty: 30 RF: 0 levofloxacin 750 mg tablet 750 mg PO DAILY 5 Days Qty: 5 RF: 0 Continued lorazepam [Ativan] 0.5 mg tablet 0.5 mg PO DAILY PRN (Reason: Anxiety) RF: 0 nutritional supplement-fiber Liquid 1 ea PO DAILY PRN (Reason: in place of meal) RF: 0 Xiidra 5 % dropperette 1 drp ophthalmic (eye) QAM RF: 0 pantoprazole [Protonix] 40 mg tablet,delayed release (DR/EC) 40 mg PO BID Qty: 60 RF: 1 nutritional supplement-fiber Liquid 1 ea PO QAM RF: 0 naproxen sodium [Aleve] 220 mg Tablet 220 mg PO BID PRN (Reason: Pain) RF: 0 psyllium husk [Metamucil] 0.4 gram Capsule 0.4 g PO QAM RF: 0 oxycodone 5 mg capsule 5 mg PO Q4H PRN (Reason: Pain) Qty: 30 RF: 0 Discontinued vitamin B complex [B Complex-Vitamin B12] Tablet 1 tab PO DAILY RF: 0 cholecalciferol (vitamin D3) 10 mcg/mL (400 unit/mL) drops 10 mcg PO DAILY RF: 0 Xarelto 10 mg tablet 10 mg PO DAILY RF: 0 De3 Dry Eye [place] Benefits 800 mg-186.67 mg-8.33 mcg capsule 1 cap PO QAM RF: 0 dexamethasone 4 mg tablet 4 mg PO .COMPLEX Qty: 60 RF: 0 Zinc 1 tsp PO 2XWK RF: 0 acetaminophen 500 mg Tablet 1,000 mg PO BID RF: 0 albuterol sulfate 90 mcg/actuation Hfa Aerosol Inhaler 2 puff INHALATION Q6H PRN (Reason: Shortness Of Breath) RF: 0 Discharge Orders: Discharge Order (Routine); Ordered 09/06/21 Ordered By: Padmaja Medellin/Other Patient Handouts: Type 2 Diabetes Admission Data Admit Date/Time: 02/23/22 22:11 Attending Provider: Brissa Marcano Admit Provider: Cady Dominguez Primary Care Provider: Miracle Payton Other Providers: [facility],Home [facility] ; David Lopes ; Manfred Espinosa ; Brianna Mcfarland [facility] [place] ; Cady Dominguez ; Dimple Ibarra ; Tien Guzman ; Vladislav Leonard ; Reba Whitmore ; Davin Dominguez I. ; Dave Aguilar II ; Tash Aiken ; Delonte Gomez ; Mark Blue ; Emily Larson Other Interventions: Discharge Summary Assessment (RN) Last Done: 09/06/21 12:47 Supervising Physician Co-Signing Physician Notes Resident Physician Supervision Note: I independently interviewed and examined the patient and verified the puckett history and physical, reviewed labs and image studies and agree with resident Dr. William findings and care plan.
[2021-09-07 10:09] LABS: Pneumocystis jirovecii PCRQual DETECTED; Pneumocystis jirovecii Source SPUTUM
[2021-09-08] MEDS ORDERED: predniSONE 20 MG TAB PO SCH (09:00)
[2021-09-11] MEDS ORDERED: predniSONE 10 MG TABLET PO SCH (09:00)
[2021-09-14] MEDS ORDERED: predniSONE 5 MG TAB PO SCH (09:00)
== END 2021-09-06 16:26 | disposition hospice, home (50) | DRG 175 ==
LOC: ED 17:25 → 2S 22:11 → SUATTDRO 22:11 → 2S 23:30 → 3W 09-05 18:53
DX: I26.99 Other pulmonary embolism without acute cor pulmonale; C34.11 Malignant neoplasm of upper lobe, right bronchus or lung; J45.909 Unspecified asthma, uncomplicated; J96.01 Acute respiratory failure with hypoxia; G93.6 Cerebral edema; Z87.891 Personal history of nicotine dependence; Z66 Do not resuscitate; Z92.3 Personal history of irradiation; J70.2 Acute drug-induced interstitial lung disorders; Z88.2 Allergy status to sulfonamides; Y92.009 Unspecified place in unspecified non-institutional (private) residence as the place of occurrence of the external cause; Z88.8 Allergy status to other drugs, medicaments and biological substances; Z96.651 Presence of right artificial knee joint; C79.89 Secondary malignant neoplasm of other specified sites; Z51.5 Encounter for palliative care; T45.1X5A Adverse effect of antineoplastic and immunosuppressive drugs, initial encounter; C79.31 Secondary malignant neoplasm of brain